=== PATIENT | female | born 1965 | race Caucasian/White ===

== ENCOUNTER 2021-11-30 13:26 | Emergency (ER) | payer MEDICAID ==
--- NOTE | 2021-11-30 13:29 | ERPHSYRPT ---
- History of Present Illness Time Seen by Provider: 11/30/21 13:28 Source: patient Exam Limitations: no limitations Physician History: This is a 56-year-old white female patient who states that she is a homeless person and is a diabetic and has nonalcoholic cirrhosis. She has been without her insulin for 4 weeks. In the last 2 weeks, the patient states that she has h ad weakness, generalized achiness and shakiness. Patient denies alcohol or illicit drug use/abuse. Patient is not homicidal or suicidal. Patient denies chest pain. She does not have shortness of breath and she has no complaints of abdominal pain. She has no primary care physician. Timing/Duration: week(s) (2) Severity: mild Associated Symptoms: weakness Allergies/Adverse Reactions: No Known Drug Allergies Allergy (Unverified 11/30/21 13:49) Travel Risk - International Travel Have you traveled outside of the country in past 3 weeks: No - Coronavirus Screening Are you exhibiting any of the following symptoms?: No Close contact with a COVID-19 positive Pt in past 14-21 Days: No - Review of Systems Constitutional: Weakness Eyes: No Symptoms Ears, Nose, & Throat: No Symptoms Respiratory: No Symptoms Cardiac: No Symptoms Abdominal/Gastrointestinal: No Symptoms Genitourinary Symptoms: No Symptoms Musculoskeletal: No Symptoms Skin: No Symptoms Neurological: No Symptoms Psychological: No Symptoms Endocrine: No Symptoms Hematologic/Lymphatic: No Symptoms Immunological/Allergic: No Symptoms All Other Systems: Reviewed and Negative - Past Surgical History Past Surgical History: Yes - Nursing Vital Signs Nursing Vital Signs: Initial Vital Signs Temperature 97.6 F 11/30/21 13:36 Pulse Rate 89 11/30/21 13:36 Blood Pressure 129/82 11/30/21 13:36 O2 Sat by Pulse Oximetry 98 11/30/21 13:36 Pain Scale Pain Intensity 0 - Physical Exam General Appearance: no apparent distress, alert, anxiety Eye Exam: PERRL/EOMI, eyes nml inspection Ears, Nose, Throat Exam: normal ENT inspection, dry mucous membranes Neck Exam: normal inspection, non-tender, supple, full range of motion Respiratory Exam: normal breath sounds, lungs clear, airway intact, No chest tenderness, No respiratory distress Cardiovascular Exam: regular rate/rhythm, normal heart sounds, normal peripheral pulses Gastrointestinal/Abdomen Exam: soft, normal bowel sounds, No tenderness Pelvic Exam: not done Rectal Exam: not done Back Exam: normal inspection, normal range of motion, No CVA tenderness, No vertebral tenderness Extremity Exam: normal inspection, normal range of motion, pelvis stable Neurologic Exam: alert, oriented x 3, cooperative, predatory animal hunter II-XII nml as tested, normal mood/affect, nml cerebellar function, nml station & gait, sensation nml Skin Exam: normal color, warm, dry Lymphatic Exam: No adenopathy SpO2 Interpretation: normal - Course Nursing assessment & vital signs reviewed: Yes EKG Interpreted by Me: RATE (82), Left [place] Deviation, NORMAL INTERVALS, NORMAL QRS, NORMAL ST-T, Other (No acute ischemic changes on today's EKG.) Ordered Tests: Active Orders 24 hr Category Date Time Status EKG-ER Only STAT Care 11/30/21 13:46 Active IV Insertion STAT Care 11/30/21 13:46 Active POCT Glucose Check STAT Care 11/30/21 13:53 Active Pulse Oximetry (ED) STAT Care 11/30/21 13:46 Active CBC W DIFF Stat Lab 11/30/21 13:48 Completed CMP Stat Lab 11/30/21 13:48 Completed CULTURE,URINE Stat Lab 11/30/21 13:52 Received D-DIMER QUANTITATIVE Stat Lab 11/30/21 13:48 Completed ETHYL ALCOHOL Stat Lab 11/30/21 13:52 Completed [place] Screen Stat Lab 11/30/21 13:52 Completed NT PRO BNP Stat Lab 11/30/21 13:48 Completed POCT GLUCOSE Stat Lab 11/30/21 13:49 Completed TROPONIN Q3H Lab 11/30/21 13:48 Completed TROPONIN Q3H Lab 11/30/21 17:00 Ordered TROPONIN Q3H Lab 11/30/21 20:00 Ordered TROPONIN Q3H Lab 11/30/21 23:00 Ordered TROPONIN Q3H Lab 12/01/21 02:00 Ordered UA W/RFX CULTURE Stat Lab 11/30/21 13:52 Completed Urine Triage Profile Stat Lab 11/30/21 13:52 Completed Medication Summary Generic Name Dose Route Start Last Admin Trade Name Freq PRN Reason Stop Dose Admin Sodium Chloride 1,000 mls @ 100 mls/hr 11/30/21 14:00 11/30/21 13:54 Sodium Chloride 0.9% 1000 Ml IV 12/30/21 13:59 100 mls/hr .Q10H SAL Administration Ceftriaxone Sodium/Dextrose 1 g in 50 mls @ 100 mls/hr 11/30/21 15:37 Rocephin 1 Gm-D5w 50 Ml Bag IV 11/30/21 16:06 STAT STA Lab/Rad Data: Laboratory Result Diagrams 11/30/21 13:48 11/30/21 13:48 Laboratory Results 11/30/21 11/30/21 11/30/21 Range/Units 13:52 13:52 13:52 WBC (4.0-10.5) x10^3/uL RBC (4.1-5.4) x10^6/uL Hgb (12.0-16.0) g/dL Hct (35-47) % MCV (78-100) fL MCH (26-32) pg MCHC (32-36) g/dL RDW (11.5-14.0) % Plt Count (150-450) x10^3/uL MPV (7.5-11.0) fL Gran % (36.0-66.0) % Immature Gran % (Auto) (0.00-0.4) % Nucleat RBC Rel Count (0.00-0.1) % Eos # (Auto) (0-0.5) x10^3/uL Immature Gran # (Auto) (0.00-0.03) x10^3u/L Absolute Lymphs (auto) (1.0-4.6) x10^3/uL Absolute Monos (auto) (0.0-1.3) x10^3/uL Absolute Nucleated RBC (0.00-0.01) x10^3u/L Lymphocytes % (24.0-44.0) % Monocytes % (0.0-12.0) % Eosinophils % (0.00-5.0) % Basophils % (0.0-0.4) % Absolute Granulocytes (1.4-6.9) x10^3/uL Basophils # (0-0.4) x10^3/uL D-Dimer (0.0-0.50) mg/L Sodium (137-145) mmol/L Potassium (3.5-5.1) mmol/L Chloride (98-107) mmol/L Carbon Dioxide (22-30) mmol/L Anion Gap (5-15) MEQ/L BUN (7-17) mg/dL Creatinine (0.52-1.04) mg/dL Estimated GFR ML/MIN Glucose (74-106) mg/dL POC Glucometer (74 to 106) mg/dL Calcium (8.4-10.2) mg/dL Total Bilirubin (0.2-1.3) mg/dL AST (14-36) U/L ALT (0-35) U/L Alkaline Phosphatase (38-126) U/L Troponin I (0.000-0.034) ng/mL NT-Pro-B Natriuret Pep (0-900) pg/mL Serum Total Protein (6.3-8.2) g/dL Albumin (3.5-5.0) g/dL Urinalys Dipstick Clnc MAIN LAB Urine Color YELLOW (YELLOW) Urine Appearance CLEAR (CLEAR) Urine pH 5.0 (5-6) Ur Specific [place] 1.025 (1.005-1.025) POC Urine Protein Conf NEGATIVE (Negative) Urine Ketones NEGATIVE (NEGATIVE) Urine Nitrite NEGATIVE (NEGATIVE) Urine Bilirubin NEGATIVE (NEGATIVE) Urine Urobilinogen 0.2 (0-1) mg/dL Urine Leukocytes TRACE (NEGATIVE) Urine WBC (Auto) 51-100 (0-5) /HPF Urine RBC (Auto) 3-5 (0-2) /HPF U Epithel Cells (Auto) NONE (FEW) /HPF Urine Bacteria (Auto) MODERATE (NEGATIVE) /HPF Urine RBC TRACE-INTACT (0-5) Mariusz/ul Urine Mucus (Auto) SLIGHT (NEGATIVE) /HPF Ur Culture Indicated? YES Urine Glucose 100 (NEGATIVE) mg/dL Urine Opiates Level (NEGATIVE) Ur Methadone (NEGATIVE) Urine Barbiturates (NEGATIVE) Ur Phencyclidine (PCP) (NEGATIVE) Urine Amphetamine (NEGATIVE) U Benzodiazepine Level (NEGATIVE) Urine Cocaine (NEGATIVE) Urine Marijuana (THC) (NEGATIVE) Ethyl Alcohol (0-10) mg/dL Monoscreen NEGATIVE (Negative) Influenza Type A Ag NEGATIVE (NEGATIVE) Influenza Type B Ag NEGATIVE (NEGATIVE) RSV (PCR) NEGATIVE (Negative) SARS-CoV-2 (PCR) NEGATIVE (NEGATIVE) 11/30/21 11/30/21 11/30/21 Range/Units 13:52 13:52 13:49 WBC (4.0-10.5) x10^3/uL RBC (4.1-5.4) x10^6/uL Hgb (12.0-16.0) g/dL Hct (35-47) % MCV (78-100) fL MCH (26-32) pg MCHC (32-36) g/dL RDW (11.5-14.0) % Plt Count (150-450) x10^3/uL MPV (7.5-11.0) fL Gran % (36.0-66.0) % Immature Gran % (Auto) (0.00-0.4) % Nucleat RBC Rel Count (0.00-0.1) % Eos # (Auto) (0-0.5) x10^3/uL Immature Gran # (Auto) (0.00-0.03) x10^3u/L Absolute Lymphs (auto) (1.0-4.6) x10^3/uL Absolute Monos (auto) (0.0-1.3) x10^3/uL Absolute Nucleated RBC (0.00-0.01) x10^3u/L Lymphocytes % (24.0-44.0) % Monocytes % (0.0-12.0) % Eosinophils % (0.00-5.0) % Basophils % (0.0-0.4) % Absolute Granulocytes (1.4-6.9) x10^3/uL Basophils # (0-0.4) x10^3/uL D-Dimer (0.0-0.50) mg/L Sodium (137-145) mmol/L Potassium (3.5-5.1) mmol/L Chloride (98-107) mmol/L Carbon Dioxide (22-30) mmol/L Anion Gap (5-15) MEQ/L BUN (7-17) mg/dL Creatinine (0.52-1.04) mg/dL Estimated GFR ML/MIN Glucose (74-106) mg/dL POC Glucometer 226 H (74 to 106) mg/dL Calcium (8.4-10.2) mg/dL Total Bilirubin (0.2-1.3) mg/dL AST (14-36) U/L ALT (0-35) U/L Alkaline Phosphatase (38-126) U/L Troponin I (0.000-0.034) ng/mL NT-Pro-B Natriuret Pep (0-900) pg/mL Serum Total Protein (6.3-8.2) g/dL Albumin (3.5-5.0) g/dL Urinalys Dipstick Clnc Urine Color (YELLOW) Urine Appearance (CLEAR) Urine pH (5-6) Ur Specific [place] (1.005-1.025) POC Urine Protein Conf (Negative) Urine Ketones (NEGATIVE) Urine Nitrite (NEGATIVE) Urine Bilirubin (NEGATIVE) Urine Urobilinogen (0-1) mg/dL Urine Leukocytes (NEGATIVE) Urine WBC (Auto) (0-5) /HPF Urine RBC (Auto) (0-2) /HPF U Epithel Cells (Auto) (FEW) /HPF Urine Bacteria (Auto) (NEGATIVE) /HPF Urine RBC (0-5) Mariusz/ul Urine Mucus (Auto) (NEGATIVE) /HPF Ur Culture Indicated? Urine Glucose (NEGATIVE) mg/dL Urine Opiates Level NEGATIVE (NEGATIVE) Ur Methadone NEGATIVE (NEGATIVE) Urine Barbiturates NEGATIVE (NEGATIVE) Ur Phencyclidine (PCP) NEGATIVE (NEGATIVE) Urine Amphetamine NEGATIVE (NEGATIVE) U Benzodiazepine Level NEGATIVE (NEGATIVE) Urine Cocaine NEGATIVE (NEGATIVE) Urine Marijuana (THC) POSITIVE (NEGATIVE) Ethyl Alcohol < 10 (0-10) mg/dL Monoscreen (Negative) Influenza Type A Ag (NEGATIVE) Influenza Type B Ag (NEGATIVE) RSV (PCR) (Negative) SARS-CoV-2 (PCR) (NEGATIVE) 11/30/21 11/30/21 11/30/21 Range/Units 13:48 13:48 13:48 WBC (4.0-10.5) x10^3/uL RBC (4.1-5.4) x10^6/uL Hgb (12.0-16.0) g/dL Hct (35-47) % MCV (78-100) fL MCH (26-32) pg MCHC (32-36) g/dL RDW (11.5-14.0) % Plt Count (150-450) x10^3/uL MPV (7.5-11.0) fL Gran % (36.0-66.0) % Immature Gran % (Auto) (0.00-0.4) % Nucleat RBC Rel Count (0.00-0.1) % Eos # (Auto) (0-0.5) x10^3/uL Immature Gran # (Auto) (0.00-0.03) x10^3u/L Absolute Lymphs (auto) (1.0-4.6) x10^3/uL Absolute Monos (auto) (0.0-1.3) x10^3/uL Absolute Nucleated RBC (0.00-0.01) x10^3u/L Lymphocytes % (24.0-44.0) % Monocytes % (0.0-12.0) % Eosinophils % (0.00-5.0) % Basophils % (0.0-0.4) % Absolute Granulocytes (1.4-6.9) x10^3/uL Basophils # (0-0.4) x10^3/uL D-Dimer 0.34 (0.0-0.50) mg/L Sodium 136 L (137-145) mmol/L Potassium 3.9 (3.5-5.1) mmol/L Chloride 101 (98-107) mmol/L Carbon Dioxide 28 (22-30) mmol/L Anion Gap 11.7 (5-15) MEQ/L BUN 10 (7-17) mg/dL Creatinine 0.84 (0.52-1.04) mg/dL Estimated GFR > 60.0 ML/MIN Glucose 226 H (74-106) mg/dL POC Glucometer (74 to 106) mg/dL Calcium 9.3 (8.4-10.2) mg/dL Total Bilirubin 0.50 (0.2-1.3) mg/dL AST 25 (14-36) U/L ALT 23 (0-35) U/L Alkaline Phosphatase 90 (38-126) U/L Troponin I < 0.012 (0.000-0.034) ng/mL NT-Pro-B Natriuret Pep 42.6 (0-900) pg/mL Serum Total Protein 7.6 (6.3-8.2) g/dL Albumin 4.1 (3.5-5.0) g/dL Urinalys Dipstick Clnc Urine Color (YELLOW) Urine Appearance (CLEAR) Urine pH (5-6) Ur Specific [place] (1.005-1.025) POC Urine Protein Conf (Negative) Urine Ketones (NEGATIVE) Urine Nitrite (NEGATIVE) Urine Bilirubin (NEGATIVE) Urine Urobilinogen (0-1) mg/dL Urine Leukocytes (NEGATIVE) Urine WBC (Auto) (0-5) /HPF Urine RBC (Auto) (0-2) /HPF U Epithel Cells (Auto) (FEW) /HPF Urine Bacteria (Auto) (NEGATIVE) /HPF Urine RBC (0-5) Mariusz/ul Urine Mucus (Auto) (NEGATIVE) /HPF Ur Culture Indicated? Urine Glucose (NEGATIVE) mg/dL Urine Opiates Level (NEGATIVE) Ur Methadone (NEGATIVE) Urine Barbiturates (NEGATIVE) Ur Phencyclidine (PCP) (NEGATIVE) Urine Amphetamine (NEGATIVE) U Benzodiazepine Level (NEGATIVE) Urine Cocaine (NEGATIVE) Urine Marijuana (THC) (NEGATIVE) Ethyl Alcohol (0-10) mg/dL Monoscreen (Negative) Influenza Type A Ag (NEGATIVE) Influenza Type B Ag (NEGATIVE) RSV (PCR) (Negative) SARS-CoV-2 (PCR) (NEGATIVE) 11/30/21 Range/Units 13:48 WBC 8.4 (4.0-10.5) x10^3/uL RBC 4.42 (4.1-5.4) x10^6/uL Hgb 12.5 (12.0-16.0) g/dL Hct 38.9 (35-47) % MCV 88.0 (78-100) fL MCH 28.3 (26-32) pg MCHC 32.1 (32-36) g/dL RDW 12.9 (11.5-14.0) % Plt Count 266 (150-450) x10^3/uL MPV 11.8 H (7.5-11.0) fL Gran % 66.2 H (36.0-66.0) % Immature Gran % (Auto) 0.5 H (0.00-0.4) % Nucleat RBC Rel Count 0.0 (0.00-0.1) % Eos # (Auto) 0.18 (0-0.5) x10^3/uL Immature Gran # (Auto) 0.04 H (0.00-0.03) x10^3u/L Absolute Lymphs (auto) 2.14 (1.0-4.6) x10^3/uL Absolute Monos (auto) 0.42 (0.0-1.3) x10^3/uL Absolute Nucleated RBC 0.00 (0.00-0.01) x10^3u/L Lymphocytes % 25.4 (24.0-44.0) % Monocytes % 5.0 (0.0-12.0) % Eosinophils % 2.1 (0.00-5.0) % Basophils % 0.8 (0.0-0.4) % Absolute Granulocytes 5.58 (1.4-6.9) x10^3/uL Basophils # 0.07 (0-0.4) x10^3/uL D-Dimer (0.0-0.50) mg/L Sodium (137-145) mmol/L Potassium (3.5-5.1) mmol/L Chloride (98-107) mmol/L Carbon Dioxide (22-30) mmol/L Anion Gap (5-15) MEQ/L BUN (7-17) mg/dL Creatinine (0.52-1.04) mg/dL Estimated GFR ML/MIN Glucose (74-106) mg/dL POC Glucometer (74 to 106) mg/dL Calcium (8.4-10.2) mg/dL Total Bilirubin (0.2-1.3) mg/dL AST (14-36) U/L ALT (0-35) U/L Alkaline Phosphatase (38-126) U/L Troponin I (0.000-0.034) ng/mL NT-Pro-B Natriuret Pep (0-900) pg/mL Serum Total Protein (6.3-8.2) g/dL Albumin (3.5-5.0) g/dL Urinalys Dipstick Clnc Urine Color (YELLOW) Urine Appearance (CLEAR) Urine pH (5-6) Ur Specific [place] (1.005-1.025) POC Urine Protein Conf (Negative) Urine Ketones (NEGATIVE) Urine Nitrite (NEGATIVE) Urine Bilirubin (NEGATIVE) Urine Urobilinogen (0-1) mg/dL Urine Leukocytes (NEGATIVE) Urine WBC (Auto) (0-5) /HPF Urine RBC (Auto) (0-2) /HPF U Epithel Cells (Auto) (FEW) /HPF Urine Bacteria (Auto) (NEGATIVE) /HPF Urine RBC (0-5) Mariusz/ul Urine Mucus (Auto) (NEGATIVE) /HPF Ur Culture Indicated? Urine Glucose (NEGATIVE) mg/dL Urine Opiates Level (NEGATIVE) Ur Methadone (NEGATIVE) Urine Barbiturates (NEGATIVE) Ur Phencyclidine (PCP) (NEGATIVE) Urine Amphetamine (NEGATIVE) U Benzodiazepine Level (NEGATIVE) Urine Cocaine (NEGATIVE) Urine Marijuana (THC) (NEGATIVE) Ethyl Alcohol (0-10) mg/dL Monoscreen (Negative) Influenza Type A Ag (NEGATIVE) Influenza Type B Ag (NEGATIVE) RSV (PCR) (Negative) SARS-CoV-2 (PCR) (NEGATIVE) - Progress Progress: improved Counseled pt/family regarding: lab results, diagnosis, need for follow-up - Departure Departure Disposition: Home Clinical Impression: UTI (urinary tract infection) Condition: Stable Critical Care Time: No Additional Instructions: Drink plenty of clear liquids. Take your antibiotics as prescribed. Follow-up with a primary care physician for further evaluation and management of your medical conditions. Prescriptions: Ciprofloxacin [Cipro 500 MG] 500 mg PO BID #14 tablet
[2021-11-30] MEDS ORDERED: Sodium Chloride 0.9% 1000 ML 1,000 ML ONE (13:53)
[2021-11-30] MEDS ORDERED: Sodium Chloride 0.9% 1000 ML 1,000 ML IV SCH (14:00)
[2021-11-30 14:12] LABS: Bacteria MODERATE /HPF (NEGATIVE); Mucus SLIGHT /HPF (NEGATIVE); WBC 51-100 /HPF (0-5)
[2021-11-30 14:18] LABS: Appearance CLEAR (CLEAR); Bilirubin NEGATIVE (NEGATIVE); Glucose 100 mg/dL (NEGATIVE); Ketones NEGATIVE (NEGATIVE); Nitrite NEGATIVE (NEGATIVE); Protein,Urine Dip NEGATIVE (Negative); RBC TRACE-INTACT Ery/ul (0-5); Specific Gravity 1.025 (1.005-1.025); Urobilinogen 0.2 mg/dL (0-1)
[2021-11-30 14:19] LABS: Dipstick done @ ? MAIN LAB; Urine Cultured Indicated? YES
[2021-11-30 14:26] LABS: Absolute Neutrophil Ct (ANC) 5.58 x10^3/uL (1.4-6.9); Basophil (Absolute #) 0.07 x10^3/uL (0-0.4); Eosinophil % 2.1 % (0.00-5.0); Eosinophil (Absolute #) 0.18 x10^3/uL (0-0.5); Hematocrit 38.9 % (35-47); Hemoglobin 12.5 g/dL (12.0-16.0); Lymphocyte (Absolute #) 2.14 x10^3/uL (1.0-4.6); Lymphocytes % 25.4 % (24.0-44.0); Mean Corpuscular Hemoglobin 28.3 pg (26-32); Mean Corpuscular Hgb Concent. 32.1 g/dL (32-36); Mean Platelet Volume 11.8 fL (7.5-11.0); Monocyte (Absolute #) 0.42 x10^3/uL (0.0-1.3); Neutrophil % 66.2 % (36.0-66.0); Platelet Count 266 x10^3/uL (150-450); Red Blood Count 4.42 x10^6/uL (4.1-5.4); Red Cell Distribution Width 12.9 % (11.5-14.0); White Blood Count 8.4 x10^3/uL (4.0-10.5)
[2021-11-30 14:28] LABS: Amphetamine,Urine NEGATIVE (NEGATIVE); Barbiturate,Urine NEGATIVE (NEGATIVE); Benzodiazepine,Urine NEGATIVE (NEGATIVE); Cocaine,Urine NEGATIVE (NEGATIVE); Methadone,Urine NEGATIVE (NEGATIVE); Opiate,Urine NEGATIVE (NEGATIVE); PCP,Urine NEGATIVE (NEGATIVE); THC,Urine POSITIVE (NEGATIVE)
[2021-11-30 14:37] LABS: ALBUMIN 4.1 g/dL (3.5-5.0); ALKALINE PHOSPHATASE 90 U/L (38-126); ANION GAP 11.7 MEQ/L (5-15); BLOOD UREA NITROGEN 10 mg/dL (7-17); CHLORIDE 101 mmol/L (98-107); Calcium 9.3 mg/dL (8.4-10.2); Carbon Dioxide 28 mmol/L (22-30); Creatinine 1 0.84 mg/dL (0.52-1.04); EST GLOMERULAR FILTRATION RATE > 60.0 ML/MIN; Glucose 226 mg/dL (74-106); NT PRO BNP 42.6 pg/mL (0-900); Potassium 3.9 mmol/L (3.5-5.1); SGOT/AST 25 U/L (14-36); SGPT/ALT 23 U/L (0-35); SODIUM 136 mmol/L (137-145); Total Protein 7.6 g/dL (6.3-8.2)
[2021-11-30 14:55] LABS: INFLUENZA A NEGATIVE (NEGATIVE); INFLUENZA B NEGATIVE (NEGATIVE); RESPIRATORY SYNCTIAL VIRUS NEGATIVE (Negative); SARS-CoV-2 Xpert Express NEGATIVE (NEGATIVE)
[2021-11-30] MEDS ORDERED: ROCEPHIN 1 Gm-D5w 50 ml Bag** 1 G/50 ML IVPB IV STA (15:37)
[2021-11-30] MEDS ORDERED: ROCEPHIN 1 Gm-D5w 50 ml Bag** 1 G/50 ML IVPB IV ONE (15:51)
[2021-11-30 16:01] VITALS: BP 140/86; PULSE 80; O2SAT 96
[2021-12-02 06:13] LABS: HBsAg Screen Negative (Negative); HCV Ab 0.1 s/co ratio (0.0-0.9); Hep A Ab, IgM Negative (Negative); Hep B Core Ab, IgM Negative (Negative)
== END 2021-11-30 16:06 | disposition home or self-care (01) ==
LOC: ED 13:26
DX: N39.0 Urinary tract infection, site not specified (principal); R53.1 Weakness; M79.10 Myalgia, unspecified site; E11.9 Type 2 diabetes mellitus without complications; Z79.4 Long term (current) use of insulin; Z59.00 Homelessness unspecified
CPT/HCPCS: 0241U; 36000; 36415; 80053; 80074; 80307; 81015; 82947; 83880; 84484; 85025; 85379; 86308; 87077; 87086; 87186; 93005; 94760; 96360; 96365; 99284; J0696; G0480

== ENCOUNTER 2021-12-24 17:21 | Emergency (ER) | payer MEDICAID, OTHER ==
[2021-12-24] MEDS ORDERED: Reglan 10 MG/2 ML IV ONE (17:56)
[2021-12-24] MEDS ORDERED: BENADRYL 50 MG/ML IV ONE (17:56)
[2021-12-24] MEDS ORDERED: TORAdol 30 mg Injection IV ONE (17:56)
[2021-12-24] MEDS ORDERED: Sodium Chloride 0.9% 500 ML 500 ML IV ONE ×2 (17:57→18:07)
[2021-12-24] MEDS ORDERED: TORAdol 30 mg Injection ONE (18:06)
[2021-12-24] MEDS ORDERED: Reglan 10 MG/2 ML ONE (18:07)
[2021-12-24] MEDS ORDERED: BENADRYL 50 MG/ML ONE (18:07)
[2021-12-24 19:11] VITALS: O2SAT 98
[2021-12-24] MEDS ORDERED: MORPHINE SULFATE 4 MG INJ IV ONE (19:24)
[2021-12-24] MEDS ORDERED: MORPHINE SULFATE 4 MG INJ ONE (19:25)
--- NOTE | 2021-12-24 19:40 | ERPHSYRPT ---
- History of Present Illness Time Seen by Provider: 12/24/21 17:24 Source: patient Exam Limitations: no limitations Patient Subjective Stated Complaint: MADDOX and sinus pain Triage Nursing Assessment: pt to ED by EMS c/o MADDOX and sinus pain since yester day. pt reports frequent headaches that typically last a day or so and alleviate on their own. pt reports she is currently homeless and is not taking any medications besides her insulin. rates 8/10 pain now. pt is babbling and inconsistant with conversation but is A&Ox4. Physician History: 56-year-old female with history of diabetes mellitus, hypertension, hyperlipidemia, migraine taking only insulin at home with a blood sugar of 150 by EMS presented in the ER with chief complaint of headache since yesterday. Patient reports moderate to severe headache all over without any significant aggravating or relieving factors. Report associated nausea without vomiting. Normal visual disturbance, difficulty speech are photophobia. No numbness tingling or focal weakness. Reports having similar headaches in the past and does not think this is the worst headache of her life. Patient is concerned that she might have COVID. No chest pain palpitations or shortness of breath. No abdominal pain/diarrhea. Timing/Duration: yesterday, constant, gradual onset, worse Quality: sharpness Head Pain Location: global Severity of Pain-Max: severe Severity of Pain-Current: severe Recent Head Trauma: no recent headache/trauma, frequent headaches Associated Symptoms: No confusion, No dizziness, No fatigue, No facial pain, No fever/chills, No light-headedness, No loss of consciousness, No nasal conge stion, No nasal drainage, No neck pain, No numbness in legs/feet, No sweating, No seizures, No sinus infection, No sensitive to light, No speech problems, No trouble walking, No vision changes, No visual disturbance Previous symptoms: same symptoms as today Allergies/Adverse Reactions: No Known Drug Allergies Allergy (Verified 12/24/21 17:29) Home Medications: Insuln Asp Prt/Insulin Aspart* [NovoLOG 70/30 Mix] 1 unit SQ UD 12/24/21 [History] Hx Tetanus, Diphtheria Vaccination/Date Given: No Hx Influenza Vaccination/Date Given: Yes Hx Pneumococcal Vaccination/Date Given: No Immunizations Up to Date: No Travel Risk - International Travel Have you traveled outside of the country in past 3 weeks: No - Coronavirus Screening Are you exhibiting any of the following symptoms?: Yes Symptoms: Headaches/Body Aches/Fatigue Close contact with a COVID-19 positive Pt in past 14-21 Days: No - Vaccine Status Have you recieved a Covid-19 vaccination: No - Review of Systems Constitutional: No Symptoms Eyes: No Symptoms Ears, Nose, & Throat: No Symptoms Respiratory: No Symptoms Cardiac: No Symptoms Abdominal/Gastrointestinal: Nausea Genitourinary Symptoms: No Symptoms Musculoskeletal: No Symptoms Skin: No Symptoms Neurological: Headache Psychological: Anxiety Endocrine: No Symptoms Hematologic/Lymphatic: No Symptoms Immunological/Allergic: No Symptoms - Past Medical History Pertinent Past Medical History: Yes Cardiac History: High Cholesterol Endocrine Medical History: Diabetes Type II Musculoskeletal History: Arthritis, Other GI Medical History: Cirrhosis, Pancreatitis Other Medical History: trigger finger, carpal tunnel - Past Surgical History Past Surgical History: Yes Genitourinary: Other Female Surgical History: Section, Other Other Surgical History: achilles tendon, kidney stone with stent (now removed), - Social History Smoking Status: Former smoker Exposure to second hand smoke: Yes Drug Use: marijuana Patient Lives Alone: No - Nursing Vital Signs Nursing Vital Signs: Initial Vital Signs Temperature 97.9 F 12/24/21 17:32 Pulse Rate 96 H 12/24/21 17:32 Respiratory Rate 20 12/24/21 17:32 Blood Pressure 128/88 12/24/21 17:32 O2 Sat by Pulse Oximetry 98 12/24/21 17:32 Pain Scale Pain Intensity 4 - Physical Exam General Appearance: no apparent distress, alert, anxiety Eye Exam: PERRL/EOMI, eyes nml inspection Ears, Nose, Throat Exam: normal ENT inspection, TMs normal, pharynx normal, moist mucous membranes Neck Exam: normal inspection, non-tender, supple, full range of motion Respiratory Exam: normal breath sounds, lungs clear Cardiovascular Exam: regular rate/rhythm, normal heart sounds Gastrointestinal/Abdominal Exam: soft, normal bowel sounds, No tenderness Extremity Exam: normal inspection, normal range of motion Mental Status Exam: alert, oriented x 3, 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 Exam: normal hearing, normal speech, PERRL, No facial asymmetry Coordination/Gait Exam: normal finger to nose, normal cerebellar function Motor/Sensory Exam: no motor deficit, no sensory deficit, no pronator drift, negative Babinski's sign DTR Exam: bicep (R): 2+, bicep (L): 2+, knee (R): 2+, knee (L): 2+ Skin Exam: normal color SpO2 Interpretation: normal SpO2: 98 O2 Delivery: Room Air Ordered Tests: Active Orders 24 hr Category Date Time Status IV Insertion STAT Care 12/24/21 17:56 Active Medication Summary Discontinued Medications Generic Name Dose Route Start Last Admin Trade Name Truong PRN Reason Stop Dose Admin Diphenhydramine HCl 50 mg 12/24/21 17:56 12/24/21 18:10 Diphenhydramine Hcl 50 Mg/Ml Vial IV 12/24/21 17:57 50 mg STAT ONE Administration Diphenhydramine HCl Confirm 12/24/21 18:07 Diphenhydramine Hcl 50 Mg/Ml Vial Administered 12/24/21 18:08 Dose 50 mg .ROUTE .STK-MED ONE Sodium Chloride 500 mls @ 500 mls/hr 12/24/21 17:57 12/24/21 19:11 Sodium Chloride 0.9% 500 Ml IV 12/24/21 18:56 Infused .Q1H ONE Infusion Sodium Chloride Confirm 12/24/21 18:07 Sodium Chloride 0.9% 500 Ml Administered 12/24/21 18:08 Dose 500 mls @ ud IV .STK-MED ONE Ketorolac Tromethamine 30 mg 12/24/21 17:56 12/24/21 18:10 Ketorolac Tromethamine 30 Mg/Ml Inj IV 12/24/21 17:57 30 mg STAT ONE Administration Ketorolac Tromethamine Confirm 12/24/21 18:06 Ketorolac Tromethamine 30 Mg/Ml Inj Administered 12/24/21 18:07 Dose 30 mg .ROUTE .STK-MED ONE Metoclopramide HCl 10 mg 12/24/21 17:56 12/24/21 18:10 Metoclopramide Hcl 10 Mg/2 Ml Vial IV 12/24/21 17:57 10 mg STAT ONE Administration Metoclopramide HCl Confirm 12/24/21 18:07 Metoclopramide Hcl 10 Mg/2 Ml Vial Administered 12/24/21 18:08 Dose 10 mg .ROUTE .STK-MED ONE Morphine Sulfate 4 mg 12/24/21 19:24 12/24/21 19:26 Morphine Sulfate 4 Mg/Ml Injection IV 12/24/21 19:25 4 mg STAT ONE Administration Morphine Sulfate Confirm 12/24/21 19:25 Morphine Sulfate 4 Mg/Ml Injection Administered 12/24/21 19:26 Dose 4 mg .ROUTE .STK-MED ONE Lab/Rad Data: Laboratory Results 12/24/21 Range/Units 19:00 Influenza Type A Ag NEGATIVE (NEGATIVE) Influenza Type B Ag NEGATIVE (NEGATIVE) RSV (PCR) NEGATIVE (Negative) SARS-CoV-2 (PCR) POSITIVE A (NEGATIVE) - Progress Progress: re-examined Air Movement: good Progress Note: 12/24/21 19:58 56-year-old is evaluated for headache. She has a nonfocal neuro exam. She is given patient feeling better but headache is not completely resolved, given a dose of morphine and headache is improved. Patient is a positive COVID-19, does not have coughing or difficulty breathing, minimal body aches and mainly is the headache. Headache is similar to previous and is not the worst headache of her life with normal neuro exam, do not think she needs imaging or any work-up. I have offered her Paxilovid, went over risk and benefits, patient wants to hold off on antiviral for now and we will see how she does in the next couple of days and if has any worsening will return to ER or follow-up with primary care. She is not in any distress and I agree with her. Recommended taking ibuprofen as needed for headache and outpatient follow-up. Discussed signs symptoms of worsening needing return to ER which she seems understanding. 12/24/21 20:31 Patient reported that she is soon be running out of her insulin and wanted to prescription sent to the [facility] Counseled pt/family regarding: diagnosis, need for follow-up - Departure Departure Disposition: Home Clinical Impression: COVID-19 virus detected, Viral syndrome Migraine Qualifiers: Migraine type: unspecified Status migrainosus presence: without status migrainosus Intractability: not intractable Qualified Code(s): G43.909 - Migraine, unspecified, not intractable, without status migrainosus Condition: Stable Critical Care Time: No Referrals: MARY TRONCOSO [Primary Care Provider] - Follow up/PCP as directed (1-2 days for reevaluation) Instructions: Headache, Adult (DC), COVID-19 (DC) Additional Instructions: Follow contact/droplet precautions. Take ibuprofen as needed for headache. Follow-up with primary care for reevaluation. Return to ER for worsening headache, numbness tingling focal weakness, visual disturbance, difficulty movements of neck or if develop fever chills etc. Prescriptions: Ibuprofen 600 mg PO Q6HPRN PRN 10 Days #20 tablet PRN Reason: Pain Insulin Lispro [Humalog Kwikpen U-100] See Rx Instructions .ROUTE .COMPLEX 10 Days #200 units
[2021-12-24 19:44] LABS: INFLUENZA A NEGATIVE (NEGATIVE); INFLUENZA B NEGATIVE (NEGATIVE); RESPIRATORY SYNCTIAL VIRUS NEGATIVE (Negative)
[2021-12-24 19:55] LABS: SARS-CoV-2 Xpert Express POSITIVE (NEGATIVE)
[2021-12-24 20:51] VITALS: BP 133/85; PULSE 83
== END 2021-12-24 20:50 | disposition home or self-care (01) ==
LOC: ED 17:21
DX: U07.1 COVID-19 (principal); G43.909 Migraine, unspecified, not intractable, without status migrainosus; R11.0 Nausea; E11.9 Type 2 diabetes mellitus without complications; I10 Essential (primary) hypertension; E78.5 Hyperlipidemia, unspecified; Z79.4 Long term (current) use of insulin; Z28.310 Unvaccinated for COVID-19
CPT/HCPCS: 0241U; 36000; 96360; 96374; 96375; 99284; J1200; J1885; J2270

== ENCOUNTER 2022-03-03 14:09 | Emergency (ER) | payer OTHER ==
--- NOTE | 2022-03-03 14:20 | ERPHSYRPT ---
- History of Present Illness Time Seen by Provider: 03/03/22 14:20 Source: patient Exam Limitations: no limitations Physician History: This is a diabetic 56-year-old white female patient of Dr. Marquez who states that she has had some right sided lower back pain intermittently for the last 2 weeks. She thinks it is been worse in the last 2 days. She did not fall or suffer any traumatic injury. The pain does shoot down to her buttock. Timing/Duration: week(s) (2), intermittent, worse Quality: radiating, sharp Back Pain Location: paraspinous muscles Back Pain Radiation: buttocks (Right side right side) Severity of Pain-Max: mild (To moderate) Severity of Pain-Current: mild (To moderate) Modifying Factors: Improves With: movement Associated Symptoms: lower back pain, muscle spasms (Right lower lumbar region), No urinary incontinence, No loss of bowel control, No constipation, No numbness in legs/feet, No tingling in legs/feet (Right side) Previous symptoms: same symptoms as today, no recent treatment Allergies/Adverse Reactions: No Known Drug Allergies Allergy (Verified 03/03/22 14:22) Home Medications: Insuln Asp Prt/Insulin Aspart* [NovoLOG 70/30 Mix] 1 unit SQ UD 12/24/21 [History] Hx Tetanus, Diphtheria Vaccination/Date Given: No Hx Influenza Vaccination/Date Given: Yes Hx Pneumococcal Vaccination/Date Given: No Travel Risk - International Travel Have you traveled outside of the country in past 3 weeks: No - Coronavirus Screening Are you exhibiting any of the following symptoms?: No Close contact with a COVID-19 positive Pt in past 14-21 Days: No - Vaccine Status Have you recieved a Covid-19 vaccination: No - Review of Systems Constitutional: No Symptoms Eyes: No Symptoms Ears, Nose, & Throat: No Symptoms Respiratory: No Symptoms Cardiac: No Symptoms Abdominal/Gastrointestinal: Constipation Genitourinary Symptoms: No Symptoms Musculoskeletal: Back Pain (Right lower lumbar region. No vertebral pain) Skin: No Symptoms Neurological: No Symptoms Psychological: No Symptoms Endocrine: No Symptoms Hematologic/Lymphatic: No Symptoms Immunological/Allergic: No Symptoms All Other Systems: Reviewed and Negative - Past Medical History Pertinent Past Medical History: Yes Cardiac History: High Cholesterol Endocrine Medical History: Diabetes Type II Musculoskeletal History: Arthritis, Other GI Medical History: Cirrhosis, Pancreatitis Other Medical History: trigger finger, carpal tunnel - Past Surgical History Past Surgical History: Yes Genitourinary: Other Female Surgical History: Section, Other Other Surgical History: achilles tendon, kidney stone with stent (now removed), - Social History Smoking Status: Former smoker Exposure to second hand smoke: Yes Drug Use: marijuana Patient Lives Alone: No - Nursing Vital Signs Nursing Vital Signs: Initial Vital Signs Temperature 97.7 F 03/03/22 14:25 Pulse Rate 76 03/03/22 14:25 Respiratory Rate 18 03/03/22 14:25 Blood Pressure 154/83 03/03/22 14:25 O2 Sat by Pulse Oximetry 97 03/03/22 14:25 Pain Scale Pain Intensity [Lower back 10 pain] Pain Intensity 10 - Physical Exam General Appearance: no apparent distress, alert, anxiety, obese Eye Exam: PERRL/EOMI, eyes nml inspection Ears, Nose, Throat Exam: normal ENT inspection, moist mucous membranes Neck Exam: normal inspection, non-tender, supple, full range of motion Respiratory Exam: airway intact, No chest tenderness, No respiratory distress Gastrointestinal Exam: soft, normal bowel sounds, No tenderness Pelvic Exam: not done Rectal Exam: not done Back Exam: normal inspection, normal range of motion, muscle spasm, No CVA tenderness, No vertebral tenderness Extremity Exam: normal inspection (Right lower lumbar paraspinous muscle uche on), normal range of motion, pelvis stable Neurologic Exam: alert, oriented x 3, cooperative, herb doctor II-XII nml as tested, normal mood/affect, nml cerebellar function, nml station & gait, sensation nml Skin Exam: normal color, warm, dry Lymphatic Exam: No adenopathy SpO2 Interpretation: normal O2 Delivery: Room Air - Course Nursing assessment & vital signs reviewed: Yes Ordered Tests: Active Orders 24 hr Category Date Time Status UA W/RFX CULTURE Stat Lab 03/03/22 15:00 Completed Medication Summary Discontinued Medications Generic Name Dose Route Start Last Admin Trade Name Freq PRN Reason Stop Dose Admin Ketorolac Tromethamine 60 mg 03/03/22 15:28 03/03/22 15:34 Ketorolac Tromethamine 30 Mg/Ml Inj IM 03/03/22 15:29 60 mg STAT ONE Administration Ketorolac Tromethamine Confirm 03/03/22 15:33 Ketorolac Tromethamine 30 Mg/Ml Inj Administered 03/03/22 15:34 Dose 60 mg .ROUTE .STK-MED ONE Orphenadrine Citrate 60 mg 03/03/22 15:29 03/03/22 15:35 Orphenadrine Citrate 60 Mg/2 Ml Vial IM 03/03/22 15:30 60 mg STAT ONE Administration Orphenadrine Citrate Confirm 03/03/22 15:33 Orphenadrine Citrate 60 Mg/2 Ml Vial Administered 03/03/22 15:34 Dose 60 mg .ROUTE .STK-MED ONE Lab/Rad Data: Laboratory Results 03/03/22 Range/Units 15:00 Urinalys Dipstick Clnc MAIN LAB Urine Color YELLOW (YELLOW) Urine Appearance CLEAR (CLEAR) Urine pH 6.0 (5-6) Ur Specific [place] 1.025 (1.005-1.025) POC Urine Protein Conf NEGATIVE (Negative) Urine Ketones NEGATIVE (NEGATIVE) Urine Nitrite NEGATIVE (NEGATIVE) Urine Bilirubin NEGATIVE (NEGATIVE) Urine Urobilinogen 0.2 (0-1) mg/dL Urine Leukocytes NEGATIVE (NEGATIVE) Urine WBC (Auto) NONE (0-5) /HPF Urine RBC (Auto) NONE (0-2) /HPF U Epithel Cells (Auto) NONE (FEW) /HPF Urine Bacteria (Auto) NONE (NEGATIVE) /HPF Urine RBC NEGATIVE (0-5) Mariusz/ul Ur Culture Indicated? NO Urine Glucose 500 (NEGATIVE) mg/dL - Progress Progress: improved, pain not gone completely Counseled pt/family regarding: diagnosis, need for follow-up - Departure Departure Disposition: Home Clinical Impression: Sciatica Condition: Stable Critical Care Time: No Referrals: SUZIE MARQUEZ DO [Primary Care Provider] - Follow up/PCP as directed Additional Instructions: Take your medication as prescribed. Follow-up with your primary care physician for further evaluation management. Do not take ibuprofen while you are taking the naproxen medication Prescriptions: Naproxen 500 mg [Naprosyn 500 MG] 500 mg PO BID #10 tablet Orphenadrine Citrate 100 mg [Norflex 100 MG Tablet] 100 mg PO BID #10 tab
[2022-03-03 15:06] LABS: Appearance CLEAR (CLEAR); Bilirubin NEGATIVE (NEGATIVE); Dipstick done @ ? MAIN LAB; Glucose 500 mg/dL (NEGATIVE); Ketones NEGATIVE (NEGATIVE); Nitrite NEGATIVE (NEGATIVE); Protein,Urine Dip NEGATIVE (Negative); RBC NEGATIVE Ery/ul (0-5); Specific Gravity 1.025 (1.005-1.025); Urobilinogen 0.2 mg/dL (0-1)
[2022-03-03 15:08] LABS: Urine Cultured Indicated? NO
[2022-03-03] MEDS ORDERED: TORAdol 30 mg Injection IM ONE (15:28)
[2022-03-03] MEDS ORDERED: Norflex 60 MG/2 ML IM ONE (15:29)
[2022-03-03] MEDS ORDERED: Norflex 60 MG/2 ML ONE (15:33)
[2022-03-03] MEDS ORDERED: TORAdol 30 mg Injection ONE (15:33)
[2022-03-03 16:15] VITALS: BP 144/75; PULSE 70; O2SAT 98
== END 2022-03-03 16:15 | disposition home or self-care (01) ==
LOC: ED 14:09
DX: M54.41 Lumbago with sciatica, right side (principal); E78.5 Hyperlipidemia, unspecified; E11.9 Type 2 diabetes mellitus without complications; Z79.4 Long term (current) use of insulin; Z28.310 Unvaccinated for COVID-19
CPT/HCPCS: 81015; 96372; 99283; J1885; J2360

== ENCOUNTER 2022-04-26 10:09 | Emergency (ER) | payer OTHER ==
[2022-04-26] MEDS ORDERED: Erythromycin 3.5 GM OPHTH. OP ONE (10:41)
--- NOTE | 2022-04-26 10:42 | ERPHSYRPT ---
- History of Present Illness Time Seen by Provider: 04/26/22 10:43 Source: patient Exam Limitations: no limitations Patient Subjective Stated Complaint: Pt reports "I had this thing come on my eye for the last couple of days. I didn't think it was anything to worry about so I haven't done anything for it. I wake up and it is sometimes crusty." Triage Nursing Assessment: Pt ambulated to cot with steady upright gait. Alert and oriented x3. No apparent respiratory distress. Complaints of lesion on left upper eyelid, red with no apparent drainage x2 days. Pt reports occassionly will make vision seem blurred, eyeglasses prescription is up to date. Physician History: 56-year-old female presents to our ED for evaluation and treatment of a stye left eye upper lid lateral margin that was first observed couple days ago. Patient states she woke this morning. Left crusty eye. No acute change in vision. Symptoms are mild to moderate in intensity. No specific worsening improving factors. No associated symptoms. No fever. No headache. No eye pain. Patient voices no other complaints or concerns at this time. Portions of this note were created with voice recognition technology. There may be grammatical, spelling, punctuation or sound alike errors Timing/Duration: day(s) (2 days ago) Severity: moderate Modifying Factors: Improves With: nothing Associated Symptoms: denies symptoms Allergies/Adverse Reactions: No Known Drug Allergies Allergy (Verified 04/26/22 10:24) Home Medications: Cyanocobalamin 1000 Mcg/ml [Cyanocobalamin B-12 1000 MCG/ML] 1,000 mcg PO DAILY 04/26/22 [History] Insulin Glargine,Hum.rec.anlog [Basaglar Tempo Pen U-100] 20 units SQ DAILY 04/26/22 [History] Loratadine 10 mg [Claritin 10 mg] 10 mg PO DAILY 04/26/22 [History] Trazodone HCl 50 mg [Desyrel 50 mg] 50 mg PO DAILY 04/26/22 [History] Hx Tetanus, Diphtheria Vaccination/Date Given: No Hx Influenza Vaccination/Date Given: Yes Hx Pneumococcal Vaccination/Date Given: No Travel Risk - International Travel Have you traveled outside of the country in past 3 weeks: No - Coronavirus Screening Are you exhibiting any of the following symptoms?: No Close contact with a COVID-19 positive Pt in past 14-21 Days: No - Vaccine Status Have you recieved a Covid-19 vaccination: No - Review of Systems Constitutional: No Symptoms, No Fever, No Chills Eyes: No Symptoms Ears, Nose, & Throat: No Symptoms Respiratory: No Symptoms, No Cough, No Dyspnea Cardiac: No Symptoms, No Chest Pain, No Edema, No Syncope Abdominal/Gastrointestinal: No Symptoms, No Abdominal Pain, No Nausea, No Vomiting, No Diarrhea Genitourinary Symptoms: No Symptoms, No Dysuria Musculoskeletal: No Symptoms, No Back Pain, No Neck Pain Skin: No Symptoms, No Rash Neurological: No Symptoms, No Dizziness, No Focal Weakness, No Sensory Changes Psychological: No Symptoms Endocrine: No Symptoms Hematologic/Lymphatic: No Symptoms Immunological/Allergic: No Symptoms All Other Systems: Reviewed and Negative - Past Medical History Pertinent Past Medical History: Yes Neurological History: No Pertinent History ENT History: Glaucoma Cardiac History: No Pertinent History Respiratory History: COPD Endocrine Medical History: Diabetes Type II, Other Musculoskeletal History: Arthritis GI Medical History: Cirrhosis, Pancreatitis Other Medical History: Cirrhosis of the liver, pancreatitis, COVID-19, R shoulder labrum repair (2010), achilles tendon repair (2009), , miscarriage, B hand tendonitis, neuropathy B hands, carpal tunnels (B), trigger fingers (B thumbs and ring fingers) - Past Surgical History Past Surgical History: Yes Cardiac: Cardiac Catheterization Genitourinary: Other Female Surgical History: Section, Other Other Surgical History: achilles tendon, kidney stone with stent (now removed), - Social History Smoking Status: Former smoker Exposure to second hand smoke: Yes Drug Use: marijuana Patient Lives Alone: No - Nursing Vital Signs Nursing Vital Signs: Initial Vital Signs Temperature 97.4 F 04/26/22 10:16 Pulse Rate 68 04/26/22 10:16 Respiratory Rate 16 04/26/22 10:16 Blood Pressure 154/109 04/26/22 10:16 O2 Sat by Pulse Oximetry 100 04/26/22 10:16 Pain Scale Pain Intensity 9 - Physical Exam General Appearance: no apparent distress, alert Eye Exam: PERRL/EOMI, eyes nml inspection, other (Hordeolum left eye upper lid lateral margin) Ears, Nose, Throat Exam: normal ENT inspection, TMs normal, pharynx normal, moist mucous membranes Neck Exam: normal inspection, non-tender, supple, full range of motion Respiratory Exam: normal breath sounds, lungs clear, airway intact, No respiratory distress Cardiovascular Exam: regular rate/rhythm, normal heart sounds, normal peripheral pulses Gastrointestinal/Abdomen Exam: soft, normal bowel sounds, No tenderness, No mass Back Exam: normal inspection, normal range of motion, No CVA tenderness, No vertebral tenderness Extremity Exam: normal inspection, normal range of motion, pelvis stable Neurologic Exam: alert, oriented x 3, cooperative, normal mood/affect, nml cerebellar function, nml station & gait, sensation nml, No motor deficits Skin Exam: normal color, warm, dry, No rash Lymphatic Exam: No adenopathy SpO2 Interpretation: normal SpO2: 100 O2 Delivery: Room Air - Course Nursing assessment & vital signs reviewed: Yes - Progress Progress: improved Progress Note: Patient has a stye to left eye upper lid lateral margin. We applied erythromycin ophthalmic. A prescription for the same was forwarded to patient's pharmacy. Patient advised to follow-up with her ag service manager within 48 hours for evaluation. Patient agreed to do so. Patient has no acute change in vision. No other associated symptomology. No indication for further work-up or imaging studies. Will discharge home. Patient voices no other complaints or concerns at this time. Portions of this note were created with voice recognition technology. There may be grammatical, spelling, punctuation or sound alike errors 04/26/22 10:45 Counseled pt/family regarding: diagnosis, need for follow-up - Departure Departure Disposition: Home Clinical Impression: Hordeolum externum left upper eyelid, Conjunctivitis, left eye Condition: Stable Critical Care Time: No Referrals: SUZIE YOUNG DO [Primary Care Provider] - Follow up/PCP as directed Prescriptions: Erythromycin Base 3.5 gm [Erythromycin 3.5 GM OPHTH.] 3.5 gm OP QID 7 Days #1
[2022-04-26] MEDS ORDERED: Erythromycin 1 GM ONE (10:43)
[2022-04-26 10:52] VITALS: BP 133/86; PULSE 64; O2SAT 96
== END 2022-04-26 10:56 | disposition home or self-care (01) ==
LOC: ED 10:09
DX: H00.014 Hordeolum externum left upper eyelid (principal); H10.9 Unspecified conjunctivitis; E11.9 Type 2 diabetes mellitus without complications; Z79.4 Long term (current) use of insulin; Z79.899 Other long term (current) drug therapy; Z28.310 Unvaccinated for COVID-19; Z86.16 Personal history of COVID-19
CPT/HCPCS: 99281; A9270-GY

== ENCOUNTER 2022-05-31 09:06 | Emergency (ER) | payer OTHER ==
--- NOTE | 2022-05-31 09:10 | ERPHSYRPT ---
- History of Present Illness Time Seen by Provider: 05/31/22 09:10 Historian: patient Exam Limitations: no limitations Physician History: This is an insulin-dependent diabetic obese 56-year-old white female patient of Dr. Marquez who has had minimal abdominal tenderness but has noticed in the last several days increasing abdominal distention. Patient states that she was diagnosed with cirrhosis about a year ago in [place]. She does not recall the actual diagnosis behind the cirrhosis. However she does not consume alcohol. She does smoke marijuana occasionally. She is a former smoker of tobacco and has not smoked tobacco in several years. Patient does have a history of pancreatitis in the past. She has been having normal bowel movements per her report. She has not had any vomiting. Patient has hyperlipidemia, COPD. She has no significant cardiac history. Timing/Duration: day(s) (Noticed increasing abdominal distention over several days), worse Activities at Onset: none Quality: fullness, pressure Abdominal Pain Onset Location: generalized abdomen Pain Radiation: no radiation Severity of Pain-Max: mild Severity of Pain-Current: mild Associated Symptoms: denies symptoms, No chest pain, No shortness of breath Previous symptoms: no prior history Allergies/Adverse Reactions: No Known Drug Allergies Allergy (Verified 04/26/22 10:24) Home Medications: Insulin Glargine,Hum.rec.anlog [Basaglar Tempo Pen U-100] 20 units SQ DAILY 04/26/22 [History] Trazodone HCl 50 mg [Desyrel 50 mg] 50 mg PO DAILY 04/26/22 [History] Hx Tetanus, Diphtheria Vaccination/Date Given: No Hx Influenza Vaccination/Date Given: Yes Hx Pneumococcal Vaccination/Date Given: No Travel Risk - International Travel Have you traveled outside of the country in past 3 weeks: No - Coronavirus Screening Are you exhibiting any of the following symptoms?: No Close contact with a COVID-19 positive Pt in past 14-21 Days: No - Vaccine Status Have you recieved a Covid-19 vaccination: No - Review of Systems Constitutional: No Symptoms Eyes: No Symptoms Ears, Nose, & Throat: No Symptoms Respiratory: No Symptoms Cardiac: No Symptoms Abdominal/Gastrointestinal: Abdominal Pain (Very mild with distention), No Nausea, No Vomiting, No Diarrhea, No Constipation Genitourinary Symptoms: No Symptoms Musculoskeletal: No Symptoms Skin: No Symptoms Neurological: No Symptoms Psychological: No Symptoms Endocrine: No Symptoms Hematologic/Lymphatic: No Symptoms Immunological/Allergic: No Symptoms All Other Systems: Reviewed and Negative - Past Medical History Pertinent Past Medical History: Yes Neurological History: No Pertinent History ENT History: Glaucoma Cardiac History: No Pertinent History Respiratory History: COPD Endocrine Medical History: Diabetes Type II Musculoskeletal History: Arthritis GI Medical History: Cirrhosis, Pancreatitis Other Medical History: Cirrhosis of the liver, pancreatitis, COVID-19, R shoul jeffry labrum repair (2010), achilles tendon repair (2009), , miscarriage, B hand tendonitis, neuropathy B hands, carpal tunnels (B), trigger fingers (B thumbs and ring fingers) - Past Surgical History Past Surgical History: Yes Cardiac: Cardiac Catheterization Genitourinary: Other Female Surgical History: Section, Other Other Surgical History: achilles tendon, kidney stone with stent (now removed), - Social History Smoking Status: Former smoker Exposure to second hand smoke: Yes Drug Use: marijuana Patient Lives Alone: No - Nursing Vital Signs Nursing Vital Signs: Initial Vital Signs Temperature 97.2 F 05/31/22 09:14 Pulse Rate 84 05/31/22 09:14 Respiratory Rate 20 05/31/22 09:14 Blood Pressure 128/80 05/31/22 09:14 O2 Sat by Pulse Oximetry 98 05/31/22 09:14 Pain Scale Pain Intensity 4 - Physical Exam General Appearance: no apparent distress, alert, anxiety, obese Eye Exam: PERRL/EOMI, eyes nml inspection Ears, Nose, Throat Exam: normal ENT inspection, moist mucous membranes Neck Exam: normal inspection, non-tender, supple, full range of motion Respiratory Exam: normal breath sounds, lungs clear, airway intact, No chest tenderness, No respiratory distress Cardiovascular Exam: regular rate/rhythm, normal heart sounds, normal peripheral pulses Gastrointestinal/Abdomen Exam: soft, normal bowel sounds, tenderness (Very mild with palpation. Generalized), distention (Generalized) Pelvic Exam: not done Rectal Exam: not done Back Exam: normal inspection, normal range of motion, No CVA tenderness, No vertebral tenderness Extremity Exam: normal inspection, normal range of motion, pelvis stable Neurologic Exam: alert, oriented x 3, cooperative, vocational education teacher II-XII nml as tested, normal mood/affect, nml cerebellar function, nml station & gait, sensation nml Skin Exam: normal color, warm, dry Lymphatic Exam: No adenopathy SpO2 Interpretation: normal O2 Delivery: Room Air - Course Nursing assessment & vital signs reviewed: Yes Ordered Tests: Active Orders 24 hr Category Date Time Status IV Insertion STAT Care 05/31/22 09:21 Active ABDOMEN AND PELVIS W/0 CONTRAS [CT] Stat Exams 05/31/22 09:22 Completed AMYLASE Stat Lab 05/31/22 09:32 Completed CBC W DIFF Stat Lab 05/31/22 09:32 Completed CMP Stat Lab 05/31/22 09:32 Completed LIPASE Stat Lab 05/31/22 09:32 Completed UA W/RFX UR CULTURE Stat Lab 05/31/22 09:32 Completed Lab/Rad Data: Laboratory Result Diagrams 05/31/22 09:32 05/31/22 09:32 Laboratory Results 05/31/22 05/31/22 05/31/22 Range/Units 09:32 09:32 09:32 WBC 7.5 (4.0-10.5) x10^3/uL RBC 5.46 H (4.1-5.4) x10^6/uL Hgb 15.1 (12.0-16.0) g/dL Hct 47.3 H (35-47) % MCV 86.6 (78-100) fL MCH 27.7 (26-32) pg MCHC 31.9 L (32-36) g/dL RDW 14.1 H (11.5-14.0) % Plt Count 193 (150-450) x10^3/uL MPV 11.3 H (7.5-11.0) fL Gran % 57.3 (36.0-66.0) % Immature Gran % (Auto) 0.8 H (0.00-0.4) % Nucleat RBC Rel Count 0.0 (0.00-0.1) % Eos # (Auto) 0.27 (0-0.5) x10^3/uL Immature Gran # (Auto) 0.06 H (0.00-0.03) x10^3u/L Absolute Lymphs (auto) 2.19 (1.0-4.6) x10^3/uL Absolute Monos (auto) 0.60 (0.0-1.3) x10^3/uL Absolute Nucleated RBC 0.00 (0.00-0.01) x10^3u/L Lymphocytes % 29.4 (24.0-44.0) % Monocytes % 8.1 (0.0-12.0) % Eosinophils % 3.6 (0.00-5.0) % Basophils % 0.8 (0.0-0.4) % Absolute Granulocytes 4.27 (1.4-6.9) x10^3/uL Basophils # 0.06 (0-0.4) x10^3/uL Sodium 137 (137-145) mmol/L Potassium 4.1 (3.5-5.1) mmol/L Chloride 104 (98-107) mmol/L Carbon Dioxide 28 (22-30) mmol/L Anion Gap 9.6 (5-15) MEQ/L BUN 12 (7-17) mg/dL Creatinine 0.84 (0.52-1.04) mg/dL Estimated GFR > 60.0 ML/MIN Glucose 120 H (74-106) mg/dL Calcium 8.9 (8.4-10.2) mg/dL Total Bilirubin 0.40 (0.2-1.3) mg/dL AST 41 H (14-36) U/L ALT 39 H (0-35) U/L Alkaline Phosphatase 87 (38-126) U/L Serum Total Protein 6.9 (6.3-8.2) g/dL Albumin 4.1 (3.5-5.0) g/dL Amylase 58 (30-110) U/L Lipase 40 (23-300) U/L Urine Color Yellow (Yellow) Urine Appearance Clear (Clear) Urine pH 5.5 (4.6-8.0) Ur Specific [place] 1.015 (1.005-1.030) Urine Protein Negative (Negative) Urine Glucose (UA) Negative (Negative) mg/dL Urine Ketones Negative (Negative) Urine Blood Negative (Negative) Urine Nitrite Negative (Negative) Urine Bilirubin Negative (Negative) Urine Urobilinogen 1.0 A (0.2) mg/dL Ur Leukocyte Esterase Negative (Negative) U Hyaline Cast (Auto) NONE SEEN (0-2) /LPF Urine Microscopic RBC 0-2 (0-5) /HPF Urine Microscopic WBC 0-2 (0-5) /HPF Ur Epithelial Cells None Seen (None Seen) /HPF Urine Bacteria None Seen (None Seen) /HPF Urine Culture Reflexed NO (NO) - Progress Progress: unchanged Progress Note: 05/31/22 10:39 CAT scan of the abdomen pelvis shows indeterminate bilateral pulmonary noncalcified micronodules. There is small hiatal hernia, duodenal diverticulum, mild diffuse fecal stasis, diffuse colonic diverticulosis without diverticulitis. There is splenomegaly. There is no abdominal aortic aneurysm. There is no evidence of bowel obstruction. There is a normal appendix. Counseled pt/family regarding: lab results, diagnosis, need for follow-up, rad results - Departure Departure Disposition: Home Clinical Impression: Abdominal distention, Constipation Condition: Stable Critical Care Time: No Referrals: SUZIE MARQUEZ, [Primary Care Provider] - Follow up/PCP as directed Additional Instructions: Plenty of fluids. If there are no contraindications, use MiraLAX [id number]. Follow-up with your primary care provider for further evaluation and management. Continue your medications as prescribed
[2022-05-31 09:39] LABS: Absolute Neutrophil Ct (ANC) 4.27 x10^3/uL (1.4-6.9); BASOPHIL % 0.8 % (0.0-0.4); Basophil (Absolute #) 0.06 x10^3/uL (0-0.4); Eosinophil % 3.6 % (0.00-5.0); Eosinophil (Absolute #) 0.27 x10^3/uL (0-0.5); Hematocrit 47.3 % (35-47); Hemoglobin 15.1 g/dL (12.0-16.0); IMMATURE GRAN # 0.06 x10^3u/L (0.00-0.03); IMMATURE GRAN % 0.8 % (0.00-0.4); Lymphocyte (Absolute #) 2.19 x10^3/uL (1.0-4.6); Lymphocytes % 29.4 % (24.0-44.0); Mean Cell Volume 86.6 fL (78-100); Mean Corpuscular Hemoglobin 27.7 pg (26-32); Mean Corpuscular Hgb Concent. 31.9 g/dL (32-36); Mean Platelet Volume 11.3 fL (7.5-11.0); Monocytes % 8.1 % (0.0-12.0); Neutrophil % 57.3 % (36.0-66.0); Platelet Count 193 x10^3/uL (150-450); Red Blood Count 5.46 x10^6/uL (4.1-5.4); Red Cell Distribution Width 14.1 % (11.5-14.0); White Blood Count 7.5 x10^3/uL (4.0-10.5)
[2022-05-31 09:45] LABS: Appearance Clear (Clear); Bacteria None Seen /HPF (None Seen); Bilirubin Negative (Negative); Blood Negative (Negative); Epithelial Cells None Seen /HPF (None Seen); Glucose, Urine Negative (Negative); Hyaline Casts NONE SEEN /LPF (0-2); Ketones Negative (Negative); Leukocyte Esterase Negative (Negative); Nitrite Negative (Negative); Ph 5.5 (4.6-8.0); Protein,Urine Dip Negative (Negative); RBC 0-2 /HPF (0-5); Specific Gravity 1.015 (1.005-1.030); WBC 0-2 /HPF (0-5)
[2022-05-31 09:47] LABS: ADD URINE CULTURE? NO (NO)
[2022-05-31 09:52] LABS: ALBUMIN 4.1 g/dL (3.5-5.0); ALKALINE PHOSPHATASE 87 U/L (38-126); AMYLASE 58 U/L (30-110); ANION GAP 9.6 MEQ/L (5-15); BLOOD UREA NITROGEN 12 mg/dL (7-17); CHLORIDE 104 mmol/L (98-107); Calcium 8.9 mg/dL (8.4-10.2); Carbon Dioxide 28 mmol/L (22-30); Creatinine 1 0.84 mg/dL (0.52-1.04); EST GLOMERULAR FILTRATION RATE > 60.0 ML/MIN; Glucose 120 mg/dL (74-106); LIPASE 40 U/L (23-300); Potassium 4.1 mmol/L (3.5-5.1); SGOT/AST 41 U/L (14-36); SGPT/ALT 39 U/L (0-35); SODIUM 137 mmol/L (137-145); Total Protein 6.9 g/dL (6.3-8.2)
--- NOTE | 2022-05-31 10:06 | XRAY ---
Indication: Abdomen distention. Cirrhosis. Recurrent pancreatitis. Multiple contiguous images obtained through the abdomen and pelvis without contrast. Comparison: None Lung bases demonstrates minimal dependent atelectasis. Indeterminant 5 mm right middle/right lower lobe and 3 mm left lower lobe noncalcified micronodules. Heart not enlarged. Small hiatal hernia. Noncontrasted stomach and bowel loops appear nonobstructed with normal appendix. 2.5 cm duodenal diverticulum. Mild diffuse scattered colonic fecal debris throughout and mild/moderate diffuse colonic diverticulosis without diverticulitis. No free fluid/air. Spleen is enlarged measuring 14 cm. Remaining liver, gallbladder, pancreas, spleen, adrenal glands, kidneys, ureters, bladder, and uterus appear unremarkable for noncontrast exam. Minimal aortoiliac calcifications without AAA. Osseous structures intact with minimal/mild degenerative changes throughout the spine greatest at the lumbosacral junction. Mild degenerative changes of both hips. No ventral or inguinal hernias. Impression: 1. Indeterminant bilateral pulmonary noncalcified micronodules. Outside comparison studies recommended if available. If not, consider CT chest to establish baseline with follow-up per Fleischner guidelines. 2. Small hiatal hernia, duodenal diverticulum, mild diffuse fecal stasis, diffuse colonic diverticulosis, splenomegaly, arteriosclerotic disease, and chronic bony findings. 3. Remaining CT abdomen/pelvis without contrast exam is negative.
[2022-05-31 11:06] VITALS: BP 154/83; PULSE 82; O2SAT 98
== END 2022-05-31 11:25 | disposition home or self-care (01) ==
LOC: ED 09:06
DX: R14.0 Abdominal distension (gaseous) (principal); K59.00 Constipation, unspecified; R10.84 Generalized abdominal pain; E78.5 Hyperlipidemia, unspecified; E11.9 Type 2 diabetes mellitus without complications; Z79.4 Long term (current) use of insulin; Z79.899 Other long term (current) drug therapy; Z86.16 Personal history of COVID-19
CPT/HCPCS: 36415; 74176; 80053; 81001; 82150; 83690; 85025; 99283

== ENCOUNTER 2022-06-18 06:42 | Emergency (ER) | payer OTHER ==
--- NOTE | 2022-06-18 07:29 | ERPHSYRPT ---
- History of Present Illness Source: patient Exam Limitations: no limitations Patient Subjective Stated Complaint: sore throat x5 days Triage Nursing Assessment: pt ambulated into ER without diff. Pt c/o sore throat x5 days. Throat pink. Lungs clear, heart tones reg. Pt has an occasional dry cough. Abd lg, round with active bs x4 quad, nontender. Pt had a pain to LLQ this morning but denies any pain at this time and states, "I need to have a BM now". Physician History: [address] x4[address], mild cough, and mild coryza. She denies N/V/D/fever. Pt has a h/o DM/cirrhosis of the liver. Timing/Duration: abrupt onset Severity: mild ENT Location: throat Prearrival Treatment: no prearrival treatment Modifying Factors: Improves With: other (Nothing makes better or worse) Associated Symptoms: cough, nasal congestion/drainage, sore throat, No ear pain (R), No ear pain (L), No fever, No chills, No change in hearing, No dizziness, No drooling, No ear drainage, No facial pain/swelling, No headache, No hearing loss, No jaw pain, No malaise, No motion sickness, No epistaxis, No nasal fore ign body, No neck pain, No poor fluid intake, No poor solids intake, No ringing of ears, No swollen glands, No sinus infection, No tooth pain, No difficulty swallowing, No voice change Allergies/Adverse Reactions: No Known Drug Allergies Allergy (Verified 04/26/22 10:24) Home Medications: Insulin Glargine,Hum.rec.anlog [Basaglar Tempo Pen U-100] 40 units SQ DAILY 04/26/22 [History] Trazodone HCl 50 mg [Desyrel 50 mg] 50 mg PO DAILY 04/26/22 [History] Ertugliflozin Pidolate [Steglatro] 15 mg PO DAILY 06/18/22 [History] Insulin Lispro [Admelog Solostar] 14 units SQ TIDWMEALS 06/18/22 [History] Hx Tetanus, Diphtheria Vaccination/Date Given: No Hx Influenza Vaccination/Date Given: Yes Hx Pneumococcal Vaccination/Date Given: No Immunizations Up to Date: No Travel Risk - International Travel Have you traveled outside of the country in past 3 weeks: No - Coronavirus Screening Are you exhibiting any of the following symptoms?: Yes Symptoms: Cough: New Onset Close contact with a COVID-19 positive Pt in past 14-21 Days: No - Vaccine Status Have you recieved a Covid-19 vaccination: No - Review of Systems Constitutional: No Symptoms, Chills, Malaise Eyes: No Symptoms Ears, Nose, & Throat: No Symptoms, Nose Pain, Nose Congestion Respiratory: No Symptoms, Cough Cardiac: No Symptoms Abdominal/Gastrointestinal: No Symptoms Genitourinary Symptoms: No Symptoms Musculoskeletal: No Symptoms Skin: No Symptoms Neurological: No Symptoms Psychological: No Symptoms Endocrine: No Symptoms Hematologic/Lymphatic: No Symptoms Immunological/Allergic: No Symptoms - Past Medical History Pertinent Past Medical History: Yes Neurological History: No Pertinent History ENT History: Glaucoma Cardiac History: No Pertinent History Respiratory History: COPD Endocrine Medical History: Diabetes Type II Musculoskeletal History: Arthritis GI Medical History: Cirrhosis, Pancreatitis Other Medical History: Cirrhosis of the liver, pancreatitis, COVID-19, R shoulder labrum repair (2010), achilles tendon repair (2009), , miscarriage, B hand tendonitis, neuropathy B hands, carpal tunnels (B), trigger fingers (B thumbs and ring fingers) - Past Surgical History Past Surgical History: Yes Cardiac: Cardiac Catheterization Genitourinary: Other Female Surgical History: Section, Other Other Surgical History: achilles tendon, kidney stone with stent (now removed), - Social History Smoking Status: Former smoker Exposure to second hand smoke: Yes Drug Use: marijuana Patient Lives Alone: No Significant Family History: no pertinent family hx - Nursing Vital Signs Nursing Vital Signs: Initial Vital Signs Temperature 96.1 F 06/18/22 06:54 Pulse Rate 94 H 06/18/22 06:54 Respiratory Rate 18 06/18/22 06:54 Blood Pressure 128/81 06/18/22 06:54 O2 Sat by Pulse Oximetry 97 06/18/22 06:54 Pain Scale Pain Intensity 4 WNL - Physical Exam General Appearance: no apparent distress Eye Exam: bilateral eye: normal inspection, PERRL, EOMI Ear Exam: bilateral ear: auricle normal, canal normal, TM normal, other (Large amount of cerumen B) Nasal Exam: normal inspection Throat Exam: normal, pharynx normal, moist mucus membranes, No pharynx swelling, No pharynx tenderness, No tongue swollen Neck Exam: normal inspection, non-tender, supple, full range of motion, trachea midline, No Brudzinski's sign, No Kernig's sign Cardiovascular/Respiratory Exam: chest non-tender, normal breath sounds, regular rate/rhythm, heart sounds normal, no respiratory distress Abdominal Exam: non-tender, soft Neurologic Exam: alert, oriented x 3, cooperative, apparel cutter II-XII nml as tested, normal mood/affect, nml cerebellar function, nml station & gait, sensation nml, No motor deficits, No sensory deficit Skin Exam: normal color, warm, dry SpO2 Interpretation: normal SpO2: 97 O2 Delivery: Room Air - Course Nursing assessment & vital signs reviewed: Yes Ordered Tests: Medication Summary Discontinued Medications Generic Name Dose Route Start Last Admin Trade Name Freq PRN Reason Stop Dose Admin Penicillin G Benzathine 1.2 mu 06/18/22 08:16 Penicillin G Benzathine 1.2 Mu/2 Ml Syringe IM 06/18/22 08:17 STAT ONE Lab/Rad Data: Laboratory Results 06/18/22 06/18/22 Range/Units 07:25 07:25 Influenza Type A Ag NEGATIVE (NEGATIVE) Influenza Type B Ag NEGATIVE (NEGATIVE) RSV (PCR) NEGATIVE (Negative) SARS-CoV-2 (PCR) NEGATIVE (NEGATIVE) Group A Strep Antibody NOT DETECTED (NEGATIVE) - Progress Progress Note: 06/18/22 08:13 Nursing note and vital signs removed No food or housing insecurities noted Labs reviewed and shared w pt Pt most likely has a viral pharyngitis but is extremely upset that she is not getting an antibiotic. I tried to explain to her that an antibiotic will not cure a virus, but to no avail, she still demanded an antibiotic. 1.2 MU of Sarath given, along w 15ml of viscous Lidocaine to swish/gargle/spit. 06/18/22 08:18 Counseled pt/family regarding: lab results, diagnosis, need for follow-up - Departure Departure Disposition: Home Clinical Impression: Viral URI Condition: Stable Critical Care Time: No Referrals: SUZIE YOUNG, [Primary Care Provider] - Follow up/PCP as directed Instructions: Sore Throat, Adult (DC), Viral Pharyngitis (DC) Additional Instructions: Follow up with your family MD in 1-2 days Return to ER for worsening of symptoms
[2022-06-18 08:06] LABS: INFLUENZA A NEGATIVE (NEGATIVE); INFLUENZA B NEGATIVE (NEGATIVE); RESPIRATORY SYNCTIAL VIRUS NEGATIVE (Negative); SARS-CoV-2 Xpert Express NEGATIVE (NEGATIVE)
[2022-06-18 08:15] VITALS: O2SAT 97
[2022-06-18] MEDS ORDERED: Bicillin L-A 1.2 Mu/2ML SYRINGE IM ONE ×2 (08:16→08:20)
[2022-06-18] MEDS ORDERED: XYLOCAINE VISCOUS 2% 15 ML CUP PO ONE (08:17)
[2022-06-18] MEDS ORDERED: XYLOCAINE VISCOUS 2% 15 ML CUP ONE (08:19)
[2022-06-18 08:50] VITALS: BP 123/83; PULSE 82
== END 2022-06-18 08:50 | disposition home or self-care (01) ==
LOC: ED 06:42
DX: J06.9 Acute upper respiratory infection, unspecified (principal); J02.9 Acute pharyngitis, unspecified; R05.1 Acute cough; R09.81 Nasal congestion; E11.9 Type 2 diabetes mellitus without complications; Z79.4 Long term (current) use of insulin; Z79.899 Other long term (current) drug therapy; Z28.310 Unvaccinated for COVID-19; Z86.16 Personal history of COVID-19
CPT/HCPCS: 0241U; 87651; 96372; 99283; J0561; A9270-GY

== ENCOUNTER 2022-07-07 07:51 | Day surgery (SDC) | payer OTHER ==
[2022-07-07] MEDS ORDERED: Depo-Medrol 40 MG/ML IM ONE (07:52)
[2022-07-07] MEDS ORDERED: BUPIVACAINE 0.5% VIAL IJ ONE (07:52)
[2022-07-07] MEDS ORDERED: DIPRIVAN 200 MG/20 ML IV ONE (09:12)
--- NOTE | 2022-07-07 10:26 | XRAY ---
Indication: Bilateral SI joint injection. Intraoperative fluoroscopy provided for 16 seconds. 4 digital spot image submitted for interpretation demonstrates posterior needle tip projecting over the left and right SI joint. Correlate with intraoperative findings/report.
--- NOTE | 2022-07-07 11:15 | XRAY ---
16 seconds of fluoroscopy was used in surgery for a bilateral sacroiliac joint injection.
[2022-07-07] MEDS ORDERED: Lactated Ringers 1,000 ML IV ONE (14:14)
== END 2022-07-07 09:40 | disposition home or self-care (01) ==
LOC: SDC-PAIN 07:51
PROVIDERS: ATTEND Psychiatry & Neurology Pain Medicine
DX: M46.1 Sacroiliitis, not elsewhere classified (principal); E11.9 Type 2 diabetes mellitus without complications; Z79.899 Other long term (current) drug therapy
CPT/HCPCS: 01992; 27096; 72202; 77002; 82947; G0260; J1030; J2704; Q9966

== ENCOUNTER 2022-09-08 06:48 | Day surgery (SDC) | payer OTHER ==
[2022-09-08] MEDS ORDERED: BUPIVACAINE 0.5% VIAL IJ ONE (06:49)
[2022-09-08] MEDS ORDERED: Depo-Medrol 40 MG/ML IM ONE (06:49)
[2022-09-08] MEDS ORDERED: DIPRIVAN 200 MG/20 ML IV ONE (08:17)
[2022-09-08] MEDS ORDERED: Lactated Ringers 1,000 ML IV ONE (11:43)
--- NOTE | 2022-09-08 18:28 | XRAY ---
Indication: Bilateral hip injection. Intraoperative fluoroscopy provided for 18 seconds. 2 digital spot image submitted for interpretation demonstrates needle tip projecting lateral to the left and right femur necks. Small amount of contrast injected for both needle tip placement. Correlate with intraoperative findings/report.
--- NOTE | 2022-09-08 19:04 | XRAY ---
18 seconds of fluoroscopy was used in surgery for bilateral hips intra-articular injections.
== END 2022-09-08 08:45 | disposition home or self-care (01) ==
LOC: SDC-PAIN 06:48
PROVIDERS: ATTEND Psychiatry & Neurology Pain Medicine
DX: M16.0 Bilateral primary osteoarthritis of hip (principal); E11.9 Type 2 diabetes mellitus without complications; Z79.899 Other long term (current) drug therapy
CPT/HCPCS: 20610; 73521; 77002; 82947; J1030; J2704; Q9966

== ENCOUNTER 2022-09-19 15:08 | Emergency (ER) | payer OTHER ==
[2022-09-19 15:45] VITALS: BP 137/85; PULSE 86; O2SAT 96
[2022-09-19 16:10] LABS: VBG BASE EXCESS 0.2 (-2.0-2.0); VBG CARBOXYHEMOGLOBIN 2.6 % T HGB (0.0-6.9); VBG HEMOGLOBIN 16.6; VBG O2 SATURATION 53.6 (95-100); VBG POTASSIUM 3.9 (3.5-5.1); VBG pH 7.34 (7.32-7.42)
[2022-09-19 16:25] LABS: Absolute Neutrophil Ct (ANC) 5.97 x10^3/uL (1.4-6.9); BASOPHIL % 0.9 % (0.0-0.4); Basophil (Absolute #) 0.08 x10^3/uL (0-0.4); Eosinophil % 2.4 % (0.00-5.0); Eosinophil (Absolute #) 0.22 x10^3/uL (0-0.5); Hematocrit 51.5 % (35-47); Hemoglobin 16.6 g/dL (12.0-16.0); IMMATURE GRAN # 0.05 x10^3u/L (0.00-0.03); IMMATURE GRAN % 0.6 % (0.00-0.4); Lymphocyte (Absolute #) 2.16 x10^3/uL (1.0-4.6); Lymphocytes % 23.9 % (24.0-44.0); Mean Cell Volume 86.7 fL (78-100); Mean Corpuscular Hemoglobin 27.9 pg (26-32); Mean Corpuscular Hgb Concent. 32.2 g/dL (32-36); Mean Platelet Volume 12.3 fL (7.5-11.0); Monocyte (Absolute #) 0.57 x10^3/uL (0.0-1.3); Monocytes % 6.3 % (0.0-12.0); Neutrophil % 65.9 % (36.0-66.0); Platelet Count 240 x10^3/uL (150-450); Red Blood Count 5.94 x10^6/uL (4.1-5.4); Red Cell Distribution Width 13.2 % (11.5-14.0); White Blood Count 9.1 x10^3/uL (4.0-10.5)
[2022-09-19 16:31] LABS: Appearance Clear (Clear); Bacteria None Seen /HPF (None Seen); Bilirubin Negative (Negative); Blood Negative (Negative); Epithelial Cells None Seen /HPF (None Seen); Glucose, Urine >=1000 mg/dL (Negative); Hyaline Casts NONE SEEN /LPF (0-2); Ketones Negative (Negative); Leukocyte Esterase Negative (Negative); Nitrite Negative (Negative); Protein,Urine Dip Negative (Negative); RBC 0-2 /HPF (0-5); Specific Gravity >=1.030 (1.005-1.030); Urobilinogen 0.2 mg/dL (0.2); WBC 0-2 /HPF (0-5)
[2022-09-19 16:36] LABS: ADD URINE CULTURE? NO (NO)
[2022-09-19 16:37] LABS: ALBUMIN 4.7 g/dL (3.5-5.0); ALKALINE PHOSPHATASE 123 U/L (38-126); ANION GAP 19.2 MEQ/L (5-15); BLOOD UREA NITROGEN 13 mg/dL (7-17); CHLORIDE 100 mmol/L (98-107); Calcium 9.3 mg/dL (8.4-10.2); Carbon Dioxide 25 mmol/L (22-30); Creatinine 1 0.86 mg/dL (0.52-1.04); EST GLOMERULAR FILTRATION RATE > 60.0 ML/MIN; Glucose 253 mg/dL (74-106); Potassium 4.1 mmol/L (3.5-5.1); SGOT/AST 34 U/L (14-36); SGPT/ALT 41 U/L (0-35); SODIUM 140 mmol/L (137-145); Total Protein 8.6 g/dL (6.3-8.2)
[2022-09-19] MEDS ORDERED: Sodium Chloride 0.9% 1000 ML 1,000 ML IV STA (17:16)
[2022-09-19] MEDS ORDERED: Sodium Chloride 0.9% 1000 ML 1,000 ML ONE (17:35)
--- NOTE | 2022-09-19 17:47 | ERPHSYRPT ---
- History of Present Illness Time Seen by Provider: 09/19/22 15:19 Source: patient Exam Limitations: no limitations Patient Subjective Stated Complaint: Pt states that she has been out of her insulin for 4-5 days due to getting steroid injections in her hips and she has an insulin pump and it increased her insulin causing her to use her allocated monthly insurance amount and she is able to get it tomorrow, states that her sugar has been running 175 to 250 Triage Nursing Assessment: Pt brought self to the ER, vitals wnl, rates pain as 3/10, pulses normal, skin n/w/d, has been trying to eat right and take in plenty of fluids, no difficulty breathing, denies N&V, doesn't appear to be in any distress Physician History: 57 years old diabetic with insulin pump presented in the ER with elevated blood sugar after she received steroid shots in both hips and insulin utilization was increased because of blood sugar staying high and she ran out for 5 days ago. Since then her blood sugar is staying between 1 80-2 50 and her usual blood sugar is around 140 with insulin. She will get insulin supply from pharmacy tomorrow. Denies any abdominal pain nausea or vomiting. No chest pain palpitations or shortness of breath. Allergies/Adverse Reactions: No Known Drug Allergies Allergy (Verified 09/19/22 15:44) Home Medications: Trazodone HCl 50 mg [Desyrel 50 mg] 100 mg PO DAILY 04/26/22 [History] Ertugliflozin Pidolate [Steglatro] 15 mg PO DAILY 06/18/22 [History] Insulin Lispro [Admelog Solostar] 115 units SQ DAILY 06/18/22 [History] Cariprazine HCl [Vraylar] 1.5 mg PO DAILY 09/19/22 [History] Omeprazole 40 mg PO DAILY 09/19/22 [History] Hx Tetanus, Diphtheria Vaccination/Date Given: No Hx Influenza Vaccination/Date Given: Yes Hx Pneumococcal Vaccination/Date Given: No Travel Risk - International Travel Have you traveled outside of the country in past 3 weeks: No - Coronavirus Screening Are you exhibiting any of the following symptoms?: No Close contact with a COVID-19 positive Pt in past 14-21 Days: No - Vaccine Status Have you recieved a Covid-19 vaccination: No - Review of Systems Constitutional: No Symptoms Eyes: No Symptoms Ears, Nose, & Throat: No Symptoms Respiratory: No Symptoms Cardiac: No Symptoms Abdominal/Gastrointestinal: No Symptoms Genitourinary Symptoms: No Symptoms Skin: No Symptoms Neurological: No Symptoms Hematologic/Lymphatic: No Symptoms Immunological/Allergic: No Symptoms - Past Medical History Pertinent Past Medical History: Yes Neurological History: No Pertinent History ENT History: Glaucoma Cardiac History: No Pertinent History Respiratory History: COPD Endocrine Medical History: Diabetes Type II Musculoskeletal History: Arthritis GI Medical History: Cirrhosis, Pancreatitis Other Medical History: Cirrhosis of the liver, pancreatitis, COVID-19, R shoulder labrum repair (2010), achilles tendon repair (2009), , misca rriage, B hand tendonitis, neuropathy B hands, carpal tunnels (B), trigger fingers (B thumbs and ring fingers) - Past Surgical History Past Surgical History: Yes Cardiac: Cardiac Catheterization Genitourinary: Other Female Surgical History: Section, Other Other Surgical History: achilles tendon, kidney stone with stent (now removed), bladder sling - Social History Smoking Status: Former smoker Exposure to second hand smoke: Yes Drug Use: marijuana Patient Lives Alone: No Significant Family History: no pertinent family hx - Nursing Vital Signs Nursing Vital Signs: Initial Vital Signs Temperature 97.9 F 09/19/22 15:20 Pulse Rate 86 09/19/22 15:20 Blood Pressure 137/85 09/19/22 15:20 O2 Sat by Pulse Oximetry 96 09/19/22 15:20 Pain Scale Pain Intensity 3 - Physical Exam General Appearance: no apparent distress, alert Eye Exam: PERRL/EOMI Ears, Nose, Throat Exam: normal ENT inspection Neck Exam: normal inspection, full range of motion Respiratory Exam: normal breath sounds, lungs clear Cardiovascular Exam: regular rate/rhythm, normal heart sounds Gastrointestinal/Abdomen Exam: soft, normal bowel sounds, No tenderness Back Exam: normal inspection, normal range of motion Extremity Exam: normal inspection, normal range of motion Neurologic Exam: alert, oriented x 3, cooperative Skin Exam: normal color SpO2 Interpretation: normal SpO2: 96 O2 Delivery: Room Air Ordered Tests: Active Orders 24 hr Category Date Time Status CBC W DIFF Stat Lab 09/19/22 16:19 Completed CMP Stat Lab 09/19/22 16:19 Completed POCT GLUCOSE Stat Lab 09/19/22 18:44 Completed UA W/RFX UR CULTURE Stat Lab 09/19/22 16:19 Completed VENOUS BLOOD GAS Urgent Lab 09/19/22 16:00 Completed Medication Summary Discontinued Medications Generic Name Dose Route Start Last Admin Trade Name Truong PRN Reason Stop Dose Admin Sodium Chloride 1,000 mls @ 999 mls/hr 09/19/22 17:16 09/19/22 17:36 Sodium Chloride 0.9% 1000 Ml IV 09/19/22 18:16 999 mls/hr .Q1H1M STA Administration Sodium Chloride Confirm 09/19/22 17:35 Sodium Chloride 0.9% 1000 Ml Administered 09/19/22 17:36 Dose 1,000 mls @ ud .ROUTE .STK-MED ONE Insulin Glargine 10 unit 09/19/22 18:35 09/19/22 18:56 Insulin Glargine 1 Unit SQ 09/19/22 18:36 Not Given ONCE STA Lab/Rad Data: Laboratory Result Diagrams 09/19/22 16:19 09/19/22 16:19 Laboratory Results 09/19/22 09/19/22 09/19/22 Range/Units 18:44 16:19 16:19 WBC 9.1 (4.0-10.5) x10^3/uL RBC 5.94 H (4.1-5.4) x10^6/uL Hgb 16.6 H (12.0-16.0) g/dL Hct 51.5 H (35-47) % MCV 86.7 (78-100) fL MCH 27.9 (26-32) pg MCHC 32.2 (32-36) g/dL RDW 13.2 (11.5-14.0) % Plt Count 240 (150-450) x10^3/uL MPV 12.3 H (7.5-11.0) fL Gran % 65.9 (36.0-66.0) % Immature Gran % (Auto) 0.6 H (0.00-0.4) % Nucleat RBC Rel Count 0.0 (0.00-0.1) % Eos # (Auto) 0.22 (0-0.5) x10^3/uL Immature Gran # (Auto) 0.05 H (0.00-0.03) x10^3u/L Absolute Lymphs (auto) 2.16 (1.0-4.6) x10^3/uL Absolute Monos (auto) 0.57 (0.0-1.3) x10^3/uL Absolute Nucleated RBC 0.00 (0.00-0.01) x10^3u/L Lymphocytes % 23.9 L (24.0-44.0) % Monocytes % 6.3 (0.0-12.0) % Eosinophils % 2.4 (0.00-5.0) % Basophils % 0.9 (0.0-0.4) % Absolute Granulocytes 5.97 (1.4-6.9) x10^3/uL Basophils # 0.08 (0-0.4) x10^3/uL pO2/FiO2 Ratio % VBG pH (7.32-7.42) VBG pCO2 at Pat Temp (42-55) mm/Hg VBG pO2 at Pat Temp (25-40) mm/Hg VBG HCO3 (22-28) meq/L VBG O2 Sat (Rafiq) (95-100) VBG Base Excess (-2.0-2.0) VBG Hemoglobin VBG Carboxyhemoglobin (0.0-6.9) % T HGB POC Potassium (3.5-5.1) Sodium 140 (137-145) mmol/L Potassium 4.1 (3.5-5.1) mmol/L Chloride 100 (98-107) mmol/L Carbon Dioxide 25 (22-30) mmol/L Anion Gap 19.2 H (5-15) MEQ/L BUN 13 (7-17) mg/dL Creatinine 0.86 (0.52-1.04) mg/dL Estimated GFR > 60.0 ML/MIN Glucose 253 H (74-106) mg/dL POC Glucometer 142 H (74 to 106) mg/dL Calcium 9.3 (8.4-10.2) mg/dL Total Bilirubin 0.60 (0.2-1.3) mg/dL AST 34 (14-36) U/L ALT 41 H (0-35) U/L Alkaline Phosphatase 123 (38-126) U/L Serum Total Protein 8.6 H (6.3-8.2) g/dL Albumin 4.7 (3.5-5.0) g/dL Urine Color (Yellow) Urine Appearance (Clear) Urine pH (4.6-8.0) Ur Specific [place] (1.005-1.030) Urine Protein (Negative) Urine Glucose (UA) (Negative) mg/dL Urine Ketones (Negative) Urine Blood (Negative) Urine Nitrite (Negative) Urine Bilirubin (Negative) Urine Urobilinogen (0.2) mg/dL Ur Leukocyte Esterase (Negative) U Hyaline Cast (Auto) (0-2) /LPF Urine Microscopic RBC (0-5) /HPF Urine Microscopic WBC (0-5) /HPF Ur Epithelial Cells (None Seen) /HPF Urine Bacteria (None Seen) /HPF Urine Culture Reflexed (NO) 09/19/22 09/19/22 Range/Units 16:19 16:00 WBC (4.0-10.5) x10^3/uL RBC (4.1-5.4) x10^6/uL Hgb (12.0-16.0) g/dL Hct (35-47) % MCV (78-100) fL MCH (26-32) pg MCHC (32-36) g/dL RDW (11.5-14.0) % Plt Count (150-450) x10^3/uL MPV (7.5-11.0) fL Gran % (36.0-66.0) % Immature Gran % (Auto) (0.00-0.4) % Nucleat RBC Rel Count (0.00-0.1) % Eos # (Auto) (0-0.5) x10^3/uL Immature Gran # (Auto) (0.00-0.03) x10^3u/L Absolute Lymphs (auto) (1.0-4.6) x10^3/uL Absolute Monos (auto) (0.0-1.3) x10^3/uL Absolute Nucleated RBC (0.00-0.01) x10^3u/L Lymphocytes % (24.0-44.0) % Monocytes % (0.0-12.0) % Eosinophils % (0.00-5.0) % Basophils % (0.0-0.4) % Absolute Granulocytes (1.4-6.9) x10^3/uL Basophils # (0-0.4) x10^3/uL pO2/FiO2 Ratio 21.0 % VBG pH 7.34 (7.32-7.42) VBG pCO2 at Pat Temp 50 (42-55) mm/Hg VBG pO2 at Pat Temp 33 (25-40) mm/Hg VBG HCO3 27.0 (22-28) meq/L VBG O2 Sat (Rafiq) 53.6 L (95-100) VBG Base Excess 0.2 (-2.0-2.0) VBG Hemoglobin 16.6 VBG Carboxyhemoglobin 2.6 (0.0-6.9) % T HGB POC Potassium 3.9 (3.5-5.1) Sodium (137-145) mmol/L Potassium (3.5-5.1) mmol/L Chloride (98-107) mmol/L Carbon Dioxide (22-30) mmol/L Anion Gap (5-15) MEQ/L BUN (7-17) mg/dL Creatinine (0.52-1.04) mg/dL Estimated GFR ML/MIN Glucose (74-106) mg/dL POC Glucometer (74 to 106) mg/dL Calcium (8.4-10.2) mg/dL Total Bilirubin (0.2-1.3) mg/dL AST (14-36) U/L ALT (0-35) U/L Alkaline Phosphatase (38-126) U/L Serum Total Protein (6.3-8.2) g/dL Albumin (3.5-5.0) g/dL Urine Color Yellow (Yellow) Urine Appearance Clear (Clear) Urine pH 5.0 (4.6-8.0) Ur Specific [place] >=1.030 A (1.005-1.030) Urine Protein Negative (Negative) Urine Glucose (UA) >=1000 A (Negative) mg/dL Urine Ketones Negative (Negative) Urine Blood Negative (Negative) Urine Nitrite Negative (Negative) Urine Bilirubin Negative (Negative) Urine Urobilinogen 0.2 (0.2) mg/dL Ur Leukocyte Esterase Negative (Negative) U Hyaline Cast (Auto) NONE SEEN (0-2) /LPF Urine Microscopic RBC 0-2 (0-5) /HPF Urine Microscopic WBC 0-2 (0-5) /HPF Ur Epithelial Cells None Seen (None Seen) /HPF Urine Bacteria None Seen (None Seen) /HPF Urine Culture Reflexed NO (NO) - Progress Progress: improved Progress Note: 09/19/22 18:41 57 years old is evaluated for elevated blood sugar because she ran out of her insulin earlier and she received steroid shots in hips bumping up our blood sugar requiring more insulin. Blood sugar was not 250s, given fluid, negative ketones, normal pH, not in HHS or DKA. Patient's blood sugar improved to 140s without any insulin. Patient does have long-acting insulin with her which she is advised to take once home tomorrow she will receive her regular insulin refil l. Discussed signs symptoms of worsening needing return to ER which she seems understanding. Stable for discharge. Counseled pt/family regarding: lab results, diagnosis, need for follow-up Medical Desision Making - Discussion of managment Agreed on:: Treatment plan, need for follow-up - Diagnostic Testing Diagnostic test were ordered, analyzed, and reviewed by me: Yes - Risk of complications The pt has a mod risk of morbidity or mortality based on: Need for prescription drug management - Departure Departure Disposition: Home Clinical Impression: Hyperglycemia Condition: Stable Critical Care Time: No Referrals: SUZIE YOUNG DO [Primary Care Provider] - Follow up with PCP 1 day Instructions: High Blood Sugar, Adult (DC) Additional Instructions: Keep yourself well-hydrated. Restart taking your regular insulin tomorrow. T kang low carb diet. Return to ER for any worsening.
[2022-09-19] MEDS ORDERED: Lantus Insulin SQ STA (18:35)
== END 2022-09-19 19:01 | disposition home or self-care (01) ==
LOC: ED 15:08
DX: E11.65 Type 2 diabetes mellitus with hyperglycemia (principal); Z79.899 Other long term (current) drug therapy; Z20.828 Contact with and (suspected) exposure to other viral communicable diseases
CPT/HCPCS: 36000; 36415; 80053; 81001; 82805; 82947; 85025; 99283

== ENCOUNTER 2022-10-20 07:08 | Day surgery (SDC) | payer OTHER ==
[2022-10-20] MEDS ORDERED: LIDOCAINE HCL 2% 100 MG/5 ML IJ ONE (07:09)
[2022-10-20] MEDS ORDERED: Depo-Medrol 40 MG/ML IM ONE (07:09)
[2022-10-20] MEDS ORDERED: DIPRIVAN 200 MG/20 ML IV ONE (08:55)
--- NOTE | 2022-10-20 10:05 | XRAY ---
Indication: Bilateral L4-S1 MBB. Intraoperative fluoroscopy provided for 11 seconds. Single digital spot image submitted for interpretation demonstrates posterior needle tips projecting over the expected left and right L4-S1 nerve roots. Correlate with intraoperative findings/report.
--- NOTE | 2022-10-20 10:07 | XRAY ---
11 seconds of fluoroscopy was used in surgery for a bilateral L4-S1 MBB.
[2022-10-20] MEDS ORDERED: Lactated Ringers 1,000 ML IV ONE (15:29)
== END 2022-10-20 09:20 | disposition home or self-care (01) ==
LOC: SDC-PAIN 07:08
PROVIDERS: ATTEND Psychiatry & Neurology Pain Medicine
DX: M47.816 Spondylosis without myelopathy or radiculopathy, lumbar region (principal); E11.9 Type 2 diabetes mellitus without complications; Z79.899 Other long term (current) drug therapy
CPT/HCPCS: 64493; 64494; 72020; 77002; 82947; J1030; J2704

== ENCOUNTER 2022-10-30 20:20 | Emergency (ER) | payer OTHER ==
[2022-10-30] MEDS ORDERED: Sodium Chloride 0.9% 1000 ML 1,000 ML IV STA (20:36)
[2022-10-30] MEDS ORDERED: Sodium Chloride 0.9% 1000 ML 1,000 ML ONE (20:39)
[2022-10-30 20:43] LABS: Absolute Neutrophil Ct (ANC) 7.54 x10^3/uL (1.4-6.9); BASOPHIL % 0.7 % (0.0-0.4); Basophil (Absolute #) 0.08 x10^3/uL (0-0.4); Eosinophil % 2.1 % (0.00-5.0); Eosinophil (Absolute #) 0.23 x10^3/uL (0-0.5); Hematocrit 50.6 % (35-47); Hemoglobin 16.3 g/dL (12.0-16.0); IMMATURE GRAN # 0.09 x10^3u/L (0.00-0.03); IMMATURE GRAN % 0.8 % (0.00-0.4); Lymphocyte (Absolute #) 2.47 x10^3/uL (1.0-4.6); Lymphocytes % 22.1 % (24.0-44.0); Mean Cell Volume 85.5 fL (78-100); Mean Corpuscular Hemoglobin 27.5 pg (26-32); Mean Corpuscular Hgb Concent. 32.2 g/dL (32-36); Mean Platelet Volume 11.5 fL (7.5-11.0); Monocyte (Absolute #) 0.77 x10^3/uL (0.0-1.3); Monocytes % 6.9 % (0.0-12.0); Neutrophil % 67.4 % (36.0-66.0); Platelet Count 248 x10^3/uL (150-450); Red Blood Count 5.92 x10^6/uL (4.1-5.4); Red Cell Distribution Width 13.7 % (11.5-14.0); White Blood Count 11.2 x10^3/uL (4.0-10.5)
--- NOTE | 2022-10-30 20:55 | ERPHSYRPT ---
- History of Present Illness Time Seen by Provider: 10/30/22 20:52 Source: patient Exam Limitations: no limitations Patient Subjective Stated Complaint: pt states "I feel dizzy and lightheaded. I don't know if my potassium is low or I'm having a anxiety attack." Triage Nursing Assessment: pt presents to [facility] via [facility], pt alert and oriented x3, pt c/o lightheadedness and dizziness that started today, pt walking from apt to ambulance station to be taken to ER. pt denies any pain currently, hx of DM, anxiety, depression Physician History: pt states "I feel dizzy and lightheaded. I don't know if my potassium is low or I'm having a anxiety attack." pt c/o lightheadedness and dizziness that started today, pt walking from apt to ambulance station to be taken to ER. pt denies any pain currently, hx of DM, anxiety, depression Patient states that since she started taking vyaler for her anxiety and depression she started having this problem at least for last 1 month. Timing/Duration: today Severity: mild Associated Symptoms: denies symptoms Allergies/Adverse Reactions: No Known Drug Allergies Allergy (Verified 10/30/22 20:23) Home Medications: Trazodone HCl 50 mg [Desyrel 50 mg] 100 mg PO DAILY 04/26/22 [History] Ertugliflozin Pidolate [Steglatro] 15 mg PO DAILY 06/18/22 [History] Insulin Lispro [Admelog Solostar] 115 units SQ DAILY 06/18/22 [History] Cariprazine HCl [Vraylar] 3 mg PO DAILY 09/19/22 [History] Omeprazole 40 mg PO DAILY 09/19/22 [History] Hx Tetanus, Diphtheria Vaccination/Date Given: Yes Hx Influenza Vaccination/Date Given: Yes Hx Pneumococcal Vaccination/Date Given: No Travel Risk - International Travel Have you traveled outside of the country in past 3 weeks: No - Coronavirus Screening Are you exhibiting any of the following symptoms?: No Close contact with a COVID-19 positive Pt in past 14-21 Days: No - Vaccine Status Have you recieved a Covid-19 vaccination: No - Review of Systems Constitutional: No Fever, No Chills Eyes: No Symptoms Ears, Nose, & Throat: No Symptoms Respiratory: No Cough, No Dyspnea Cardiac: No Chest Pain, No Edema, No Syncope Abdominal/Gastrointestinal: No Abdominal Pain, No Nausea, No Vomiting, No Diarrhea Genitourinary Symptoms: No Dysuria Musculoskeletal: No Back Pain, No Neck Pain Skin: No Rash Neurological: Dizziness, No Focal Weakness, No Sensory Changes Psychological: No Symptoms Endocrine: No Symptoms All Other Systems: Reviewed and Negative - Past Medical History Pertinent Past Medical History: Yes Neurological History: No Pertinent History ENT History: Glaucoma Cardiac History: No Pertinent History, Hypertension Respiratory History: COPD Endocrine Medical History: Diabetes Type II Musculoskeletal History: Arthritis GI Medical History: Cirrhosis, Pancreatitis Other Medical History: Cirrhosis of the liver, pancreatitis, COVID-19, R shoulder labrum repair (2010), achilles tendon repair (2009), , miscarriage, B hand tendonitis, neuropathy B hands, carpal tunnels (B), trigger fingers (B thumbs and ring fingers) - Past Surgical History Past Surgical History: Yes Cardiac: Cardiac Catheterization Genitourinary: Other Female Surgical History: Section, Other Other Surgical History: achilles tendon, kidney stone with stent (now removed), bladder sling - Social History Smoking Status: Former smoker Exposure to second hand smoke: Yes Drug Use: marijuana Patient Lives Alone: No Significant Family History: no pertinent family hx - Nursing Vital Signs Nursing Vital Signs: Initial Vital Signs Temperature 97.7 F 10/30/22 20:21 Pulse Rate 98 H 10/30/22 20:21 Respiratory Rate 18 10/30/22 20:21 Blood Pressure 141/90 10/30/22 20:21 O2 Sat by Pulse Oximetry 97 10/30/22 20:21 Pain Scale Pain Intensity 0 - Physical Exam General Appearance: no apparent distress, alert Eye Exam: PERRL/EOMI, eyes nml inspection Ears, Nose, Throat Exam: normal ENT inspection, TMs normal, pharynx normal, moist mucous membranes Neck Exam: normal inspection, non-tender, supple, full range of motion Respiratory Exam: normal breath sounds, lungs clear, No respiratory distress Cardiovascular Exam: regular rate/rhythm, normal heart sounds, normal peripheral pulses Gastrointestinal/Abdomen Exam: soft, normal bowel sounds, No tenderness, No mass Back Exam: normal inspection, normal range of motion, No CVA tenderness, No vertebral tenderness Extremity Exam: normal inspection, normal range of motion, pelvis stable Neurologic Exam: alert, oriented x 3, cooperative, normal mood/affect, nml cerebellar function, nml station & gait, sensation nml, No motor deficits Skin Exam: normal color, warm, dry, No rash Lymphatic Exam: No adenopathy SpO2: 97 - Course Nursing assessment & vital signs reviewed: Yes EKG Interpreted by Me: Non-specific ST Changes - Radiology Exams Chest X-ray Interpretation: Reviewed by me, Negative Ordered Tests: Active Orders 24 hr Category Date Time Status EKG-ER Only STAT Care 10/30/22 20:36 Active IV Insertion STAT Care 10/30/22 20:38 Active CHEST 1 VIEW (PORTABLE) Stat Exams 10/30/22 20:36 Taken CBC W DIFF Stat Lab 10/30/22 20:30 Completed CMP Stat Lab 10/30/22 20:30 Completed MAGNESIUM Stat Lab 10/30/22 20:30 Completed TROPONIN Stat Lab 10/30/22 21:50 Received UA W/RFX UR CULTURE Stat Lab 10/30/22 20:43 Completed Medication Summary Generic Name Dose Route Start Last Admin Trade Name Freq PRN Reason Stop Dose Admin Ceftriaxone Sodium/Dextrose 1 g in 50 mls @ 100 mls/hr 10/30/22 21:42 10/30/22 21:48 Rocephin 1 Gm-D5w 50 Ml Bag IV 10/30/22 22:11 100 mls/hr STAT STA 100 mls/hr Administration Discontinued Medications Generic Name Dose Route Start Last Admin Trade Name Freq PRN Reason Stop Dose Admin Sodium Chloride 1,000 mls @ 999 mls/hr 10/30/22 20:36 10/30/22 21:41 Sodium Chloride 0.9% 1000 Ml IV 10/30/22 21:36 Infused .Q1H1M STA Infusion Sodium Chloride Confirm 10/30/22 20:39 Sodium Chloride 0.9% 1000 Ml Administered 10/30/22 20:40 Dose 1,000 mls @ ud .ROUTE .STK-MED ONE Ceftriaxone Sodium/Dextrose Confirm 10/30/22 21:46 Rocephin 1 Gm-D5w 50 Ml Bag Administered 10/30/22 21:47 Dose 1 g in 50 mls @ ud IV .STK-MED ONE Lab/Rad Data: Laboratory Result Diagrams 10/30/22 20:30 10/30/22 20:30 Laboratory Results 10/30/22 10/30/22 10/30/22 Range/Units 20:43 20:30 20:30 WBC 11.2 H (4.0-10.5) x10^3/uL RBC 5.92 H (4.1-5.4) x10^6/uL Hgb 16.3 H (12.0-16.0) g/dL Hct 50.6 H (35-47) % MCV 85.5 (78-100) fL MCH 27.5 (26-32) pg MCHC 32.2 (32-36) g/dL RDW 13.7 (11.5-14.0) % Plt Count 248 (150-450) x10^3/uL MPV 11.5 H (7.5-11.0) fL Gran % 67.4 H (36.0-66.0) % Immature Gran % (Auto) 0.8 H (0.00-0.4) % Nucleat RBC Rel Count 0.0 (0.00-0.1) % Eos # (Auto) 0.23 (0-0.5) x10^3/uL Immature Gran # (Auto) 0.09 H (0.00-0.03) x10^3u/L Absolute Lymphs (auto) 2.47 (1.0-4.6) x10^3/uL Absolute Monos (auto) 0.77 (0.0-1.3) x10^3/uL Absolute Nucleated RBC 0.00 (0.00-0.01) x10^3u/L Lymphocytes % 22.1 L (24.0-44.0) % Monocytes % 6.9 (0.0-12.0) % Eosinophils % 2.1 (0.00-5.0) % Basophils % 0.7 (0.0-0.4) % Absolute Granulocytes 7.54 H (1.4-6.9) x10^3/uL Basophils # 0.08 (0-0.4) x10^3/uL Sodium 139 (137-145) mmol/L Potassium 4.2 (3.5-5.1) mmol/L Chloride 100 (98-107) mmol/L Carbon Dioxide 22 (22-30) mmol/L Anion Gap 21.2 H (5-15) MEQ/L BUN 15 (7-17) mg/dL Creatinine 0.85 (0.52-1.04) mg/dL Estimated GFR > 60.0 ML/MIN Glucose 247 H (74-106) mg/dL Calcium 9.2 (8.4-10.2) mg/dL Magnesium 2.0 (1.6-2.3) mg/dL Total Bilirubin 0.40 (0.2-1.3) mg/dL AST 30 (14-36) U/L ALT 41 H (0-35) U/L Alkaline Phosphatase 172 H (38-126) U/L Serum Total Protein 8.4 H (6.3-8.2) g/dL Albumin 4.6 (3.5-5.0) g/dL Urine Color Yellow (Yellow) Urine Appearance Clear (Clear) Urine pH 5.0 (4.6-8.0) Ur Specific [place] >=1.030 A (1.005-1.030) Urine Protein Negative (Negative) Urine Glucose (UA) >=1000 A (Negative) mg/dL Urine Ketones Negative (Negative) Urine Blood Negative (Negative) Urine Nitrite Negative (Negative) Urine Bilirubin Negative (Negative) Urine Urobilinogen 0.2 (0.2) mg/dL Ur Leukocyte Esterase Negative (Negative) U Hyaline Cast (Auto) NONE SEEN (0-2) /LPF Urine Microscopic RBC 0-2 (0-5) /HPF Urine Microscopic WBC 6-10 A (0-5) /HPF Ur Epithelial Cells None Seen (None Seen) /HPF Urine Bacteria None Seen (None Seen) /HPF Urine Culture Reflexed NO (NO) - Progress Progress: improved Counseled pt/family regarding: lab results, diagnosis, need for follow-up, rad results - Departure Departure Disposition: Home Clinical Impression: Anxiety, Dizziness UTI (urinary tract infection) Qualifiers: Urinary tract infection type: site unspecified Hematuria presence: without hematuria Qualified Code(s): N39.0 - Urinary tract infection, site not specified Uncontrolled diabetes mellitus Qualifiers: Diabetes mellitus type: type 2 Glycemic state: with hyperglycemia Qualified Code(s): E11.65 - Type 2 diabetes mellitus with hyperglycemia Condition: Stable Critical Care Time: Yes Critical Care Time(excluding separately billable procedures): Critical 30-74 mins Referrals: SUZIE YOUNG DO [Primary Care Provider] - Follow Up with PCP/3 days Instructions: Dizziness, Nonvertigo, (DC) Additional Instructions: Please stop your Vyalar. Finish your antibiotic as prescribed for 5 days for your urinary tract infection. Follow-up with your primary care physician in next 2 to 3 days. Discharge/Care Plan SWEETIE ORNELAS was seen on 10/30/22 in the Emergency Room. The patient was counseled regarding Diagnosis,Lab results, Imaging studies, need for follow up and when to return to the Emergency Room. Prescriptions given: Discharge Note I have spoken with the patient and/or caregivers. I have explained the patient's condition, diagnosis and treatment plan based on the information available to me at this time. I have answered the patient's and/or caregiver's questions and addressed any concerns. The patient and/or caregivers have as good understanding of the patient's diagnosis, condition and treatment plan as can be expected at this point. The vital signs have been stable. The patient's condition is stable and appropriate for discharge from the emergency department. The patient will pursue further outpatient evaluation with the primary care rafi joseph or other designated or consulting physician as outlined in the discharge instructions. The patient and/or caregivers are agreeable to this plan of care and follow-up instructions have been explained in detail. The patient and/or caregivers have received these instruction. The patient/and or caregivers are aware that any significant change in condition or worsening of symptoms should prompt an immediate return to this or the closest emergency department or call 911. SWEETIE ORNELAS was seen on 10/30/22 n the Emergency Room. At that time you were treated for an emergent condition, during your visit Laboratory, Radiology and/or other procedures may have been ordered. It is very important that you follow-up with your Primary Care Physician SUZIE YOUNG DO within the next 24-48 hours to review your Emergency Room visit and the final results of testing that was ordered. Some test results such as Urine Cultures, Blood Cultures, and other cultures if ordered will not be finalized for 24-48 hours. If you do not have a Primary Care Provider please call the medical records department at [phone] ext [phone] to obtain a copy of your results or you may sign into our patient portal to obtain these results by visiting us @ [email or web address] and completing the following steps: 1. Click on the Patient Portal link 2. Click the Patient Self Enrollment Link to complete the enrollment form and entering your 3. Once the enrollment form is completed you will receive an email with a temporary ID and password at the email address you provided. 4. Next choose a user name and password. Your user name must be at least 4 characters long and your password must be at least 4 characters long. 5. Choose a security question from the list and provide your answer to the qu estion. If you already have signed into the Health Portal you may access your Health C are Information 29/11 by the following steps: 1. Login to our website @ [email or web address] 2. Enter your original user name and password. FAQS The [facility] Health Portal is an online tool that contains your Lab Results, Radiology Reports, Visit History, Discharge Instructions and Health Summary Lab and Radiology Results will not be available for 72 hours on the portal. The Portal is a secure site, passwords are encryted and URLs are re-written so they cannot be copied and pasted. You and authorized family members are the only ones who can access your Portal. Also there is a timeout feature that protects your information if you leave the Portal page open. If you have technical difficulty please use the Contact Us link on the page this will allow you to submit any questions you have regarding the Portal or you may contact the Medical Record Department at [phone] ext [phone]. Prescriptions: Smz/Tmp Ds Tablet [Bactrim Ds Tablet] 1 udtab PO BID #14 tablet
[2022-10-30 20:58] LABS: ALBUMIN 4.6 g/dL (3.5-5.0); ALKALINE PHOSPHATASE 172 U/L (38-126); ANION GAP 21.2 MEQ/L (5-15); BLOOD UREA NITROGEN 15 mg/dL (7-17); CHLORIDE 100 mmol/L (98-107); Calcium 9.2 mg/dL (8.4-10.2); Carbon Dioxide 22 mmol/L (22-30); Creatinine 1 0.85 mg/dL (0.52-1.04); EST GLOMERULAR FILTRATION RATE > 60.0 ML/MIN; Glucose 247 mg/dL (74-106); Potassium 4.2 mmol/L (3.5-5.1); SGOT/AST 30 U/L (14-36); SGPT/ALT 41 U/L (0-35); SODIUM 139 mmol/L (137-145); Total Protein 8.4 g/dL (6.3-8.2)
[2022-10-30 21:09] LABS: Appearance Clear (Clear); Bacteria None Seen /HPF (None Seen); Bilirubin Negative (Negative); Blood Negative (Negative); Epithelial Cells None Seen /HPF (None Seen); Glucose, Urine >=1000 mg/dL (Negative); Hyaline Casts NONE SEEN /LPF (0-2); Ketones Negative (Negative); Leukocyte Esterase Negative (Negative); Nitrite Negative (Negative); Protein,Urine Dip Negative (Negative); RBC 0-2 /HPF (0-5); Specific Gravity >=1.030 (1.005-1.030); Urobilinogen 0.2 mg/dL (0.2)
[2022-10-30 21:32] LABS: ADD URINE CULTURE? NO (NO)
[2022-10-30] MEDS ORDERED: ROCEPHIN 1 Gm-D5w 50 ml Bag** 1 G/50 ML IVPB IV STA (21:42)
[2022-10-30 21:45] VITALS: O2SAT 97
[2022-10-30] MEDS ORDERED: ROCEPHIN 1 Gm-D5w 50 ml Bag** 1 G/50 ML IVPB IV ONE (21:46)
[2022-10-30 22:11] VITALS: BP 103/63; PULSE 87
--- NOTE | 2022-10-31 07:59 | XRAY ---
Indication: Short of breath. Dizziness. COPD. Comparison: January 15, 2022 Portable chest remains inflated and clear. Heart not enlarged for AP portable technique. Bony thorax intact with mild degenerative changes. Impression: Continued nonacute chest.
== END 2022-10-30 22:23 | disposition home or self-care (01) ==
LOC: ED 20:20
DX: N39.0 Urinary tract infection, site not specified (principal); F41.9 Anxiety disorder, unspecified; E11.65 Type 2 diabetes mellitus with hyperglycemia; R42 Dizziness and giddiness; I10 Essential (primary) hypertension; Z79.4 Long term (current) use of insulin; Z79.899 Other long term (current) drug therapy; Z28.310 Unvaccinated for COVID-19; Z86.16 Personal history of COVID-19
CPT/HCPCS: 36000; 36415; 71045; 80053; 81001; 83735; 84484; 85025; 93005; 96360; 96365; 99284; 99291; J0696

== ENCOUNTER 2022-11-03 20:43 | Emergency (ER) | payer OTHER ==
[2022-11-03 21:04] VITALS: O2SAT 95
--- NOTE | 2022-11-03 21:33 | ERPHSYRPT ---
- History of Present Illness Time Seen by Provider: 11/03/22 21:27 Source: patient Exam Limitations: no limitations Patient Subjective Stated Complaint: pt states "My is away at work during the night. I hate being by myself. I get super anxious. I haven't been sleeping but 2 hrs the past week." Triage Nursing Assessment: pt ambulatory to bed by self, pt alert and oriented x3, skin pwd, pt here for anxiety, denies chest pain, sob, or any pain. pt states "I just want a xanax so I can sleep all night." Physician History: Patient is a 57-year-old female presents to our ED for your treatment of anxiety. Patient was in our ED for the same just 4 days ago.. Patient received a full work-up including D-dimer for PE. D-dimer negative at that time. Patient states her anxiety occurs after her leaves home from work. Patient believes she needs to be started on Xanax. No associated chest pain. No shortness of breath. No nausea vomiting or diaphoresis. Symptoms are mild to moderate in intensity. No specific worsening or improving factors. No change in her symptomology from patient's last visit. Patient states at that time she was also diagnosed with a UTI. She is currently on Bactrim. Patient voices no other complaints or concerns at this time. Portions of this note were created with voice recognition technology. There may be grammatical, spelling, punctuation or sound alike errors Timing/Duration: today Severity: moderate Modifying Factors: Improves With: nothing Associated Symptoms: denies symptoms Allergies/Adverse Reactions: No Known Drug Allergies Allergy (Verified 11/03/22 20:59) Home Medications: Trazodone HCl 50 mg [Desyrel 50 mg] 100 mg PO DAILY 04/26/22 [History] Ertugliflozin Pidolate [Steglatro] 15 mg PO DAILY 06/18/22 [History] Insulin Lispro [Admelog Solostar] 115 units SQ DAILY 06/18/22 [History] Cariprazine HCl [Vraylar] 3 mg PO DAILY 09/19/22 [History] Omeprazole 40 mg PO DAILY 09/19/22 [History] Hx Tetanus, Diphtheria Vaccination/Date Given: Yes Hx Influenza Vaccination/Date Given: Yes Hx Pneumococcal Vaccination/Date Given: No Travel Risk - International Travel Have you traveled outside of the country in past 3 weeks: No - Coronavirus Screening Are you exhibiting any of the following symptoms?: No Close contact with a COVID-19 positive Pt in past 14-21 Days: No - Vaccine Status Have you recieved a Covid-19 vaccination: No - Review of Systems Constitutional: No Symptoms, No Fever, No Chills Eyes: No Symptoms Ears, Nose, & Throat: No Symptoms Respiratory: No Symptoms, No Cough, No Dyspnea Cardiac: No Symptoms, No Chest Pain, No Edema, No Syncope Abdominal/Gastrointestinal: No Symptoms, No Abdominal Pain, No Nausea, No Vomiting, No Diarrhea Genitourinary Symptoms: No Symptoms, No Dysuria Musculoskeletal: No Symptoms, No Back Pain, No Neck Pain Skin: No Symptoms, No Rash Neurological: No Symptoms, No Dizziness, No Focal Weakness, No Sensory Changes Psychological: No Symptoms Endocrine: No Symptoms Hematologic/Lymphatic: No Symptoms Immunological/Allergic: No Symptoms All Other Systems: Reviewed and Negative - Past Medical History Pertinent Past Medical History: Yes Neurological History: No Pertinent History ENT History: Glaucoma Cardiac History: No Pertinent History, Hypertension Respiratory History: COPD Endocrine Medical History: Diabetes Type II Musculoskeletal History: Arthritis GI Medical History: Cirrhosis, Pancreatitis Psycho-Social History: Anxiety Other Medical History: Cirrhosis of the liver, pancreatitis, COVID-19, R shoulder labrum repair (2010), achilles tendon repair (2009), , miscarriage, B hand tendonitis, neuropathy B hands, carpal tunnels (B), trigger fingers (B thumbs and ring fingers) - Past Surgical History Past Surgical History: Yes Cardiac: Cardiac Catheterization Genitourinary: Other Female Surgical History: Section, Other Other Surgical History: achilles tendon, kidney stone with stent (now removed), bladder sling - Social History Smoking Status: Former smoker Exposure to second hand smoke: Yes Drug Use: marijuana Patient Lives Alone: No Significant Family History: no pertinent family hx - Nursing Vital Signs Nursing Vital Signs: Initial Vital Signs Pulse Rate 90 11/03/22 21:03 Respiratory Rate 18 11/03/22 21:03 Blood Pressure 152/82 11/03/22 21:03 O2 Sat by Pulse Oximetry 95 11/03/22 21:03 Pain Scale Pain Intensity 0 - Physical Exam General Appearance: no apparent distress, alert Eye Exam: PERRL/EOMI, eyes nml inspection Ears, Nose, Throat Exam: normal ENT inspection, TMs normal, pharynx normal, moist mucous membranes Neck Exam: normal inspection, non-tender, supple, full range of motion Respiratory Exam: normal breath sounds, lungs clear, airway intact, No respiratory distress Cardiovascular Exam: regular rate/rhythm, normal heart sounds, normal peripheral pulses Gastrointestinal/Abdomen Exam: soft, normal bowel sounds, No tenderness, No mass Back Exam: normal inspection, normal range of motion, No CVA tenderness, No vertebral tenderness Extremity Exam: normal inspection, normal range of motion, pelvis stable Neurologic Exam: alert, oriented x 3, cooperative, normal mood/affect, nml cerebellar function, nml station & gait, sensation nml, No motor deficits Skin Exam: normal color, warm, dry, No rash Lymphatic Exam: No adenopathy SpO2 Interpretation: normal SpO2: 95 O2 Delivery: Room Air - Course Nursing assessment & vital signs reviewed: Yes EKG Interpreted by Me: RATE (73), Sinus Rhythm, Left Schriever Deviation, NORMAL INTERVALS Ordered Tests: Medication Summary Generic Name Dose Route Start Last Admin Trade Name Corbinq PRN Reason Stop Dose Admin Alprazolam 0.5 mg 11/03/22 22:33 Alprazolam 0.5 Mg Tablet PO 11/03/22 22:34 STAT ONE - Progress Progress: improved Progress Note: Patient is a 57-year-old female presents to our ED for evaluation of anxiety. Patient states that she has been experiencing anxiety episodes at home. Patient attributes her symptoms to stress at home. Patient states her significant other is not contributing to home chores. Patient states that it feels as though her stress is mounting. Patient requesting a Xanax. No associated chest pain. No shortness of breath. No nausea vomiting or diaphoresis. Patient otherwise asymptomatic. Patient was here this past Tuesday for the same symptoms. She had a work-up that was essentially nonremarkable. No indication for repeating the work-up. Patient's symptoms are the exact same as her previous. We performed an EKG in our ED. EKG was normal sinus rhythm. No ischemic changes. Vital stable. Half milligram tab of Xanax was provided to patient. We split the tab in half. Patient will take 0.25 at home as needed for anxiety. Patient agrees to follow-up with her primary care doctor within 48 hours for reevaluation. She voices no other complaints. Patient requesting discharge. Patient states she will call for a ride. Portions of this note were created with voice recognition technology. There may be grammatical, spelling, punctuation or sound alike errors Complexity of problem addressed is low acute uncomplicated No critical care time Complexity of data reviewed is moderate. Dr. Amin ordered and independently evaluated EKG. No emergent concerning findings observed. Risk of complication and or risk morbidity/mortality patient management is moderate. Patient received Xanax in our ED. Patient will take the pills home to administer for anxiety as needed. We ordered a dose of 0.5 mg. The Xanax was cut in half. Patient will administer 0.25 mg at night then another dose as needed. We will discharge patient home. Patient agrees to follow-up with her primary care doctor within 48 hours. Vital stable. Discharge diagnosis is anxiety. Plan of care established for shared decision making. No social determinants of health present to impede follow-up. Patient voices no other complaints or concerns at this time. Portions of this note were created with voice recognition technology. There may be grammatical, spelling, punctuation or sound alike errors 11/03/22 22:35 Counseled pt/family regarding: diagnosis, need for follow-up - Departure Departure Disposition: Home Clinical Impression: Anxiety Condition: Stable Critical Care Time: No Referrals: SUZIE YOUNG, [Primary Care Provider] - Follow up/PCP as directed Additional Instructions: Discharge/Care Plan SWEETIE ORNELAS was seen on 11/03/22 in the Emergency Room. The patient was counseled regarding Diagnosis,Lab results, Imaging studies, need for follow up and when to return to the Emergency Room. Prescriptions given: Discharge Note I have spoken with the patient and/or caregivers. I have explained the patient's condition, diagnosis and treatment plan based on the information available to me at this time. I have answered the patient's and/or caregiver's questions and addressed any concerns. The patient and/or caregivers have as good understanding of the patient's diagnosis, condition and treatment plan as can be expected at this point. The vital signs have been stable. The patient's condition is stable and appropriate for discharge from the emergency department. The patient will pursue further outpatient evaluation with the primary care physician or other designated or consulting physician as outlined in the discharge instructions. The patient and/or caregivers are agreeable to this plan of care and follow-up instructions have been explained in detail. The patient and/or caregivers have received these instruction. The patient/and or caregivers are aware that any significant change in condition or worsening of symptoms should prompt an immediate return to this or the closest emergency department or call 911.
[2022-11-03] MEDS ORDERED: xanAX 0.5 MG PO ONE (22:33)
[2022-11-03] MEDS ORDERED: xanAX 0.5 MG ONE (22:35)
[2022-11-03 22:50] VITALS: BP 123/72; PULSE 84
== END 2022-11-03 22:50 | disposition home or self-care (01) ==
LOC: ED 20:43
DX: F41.9 Anxiety disorder, unspecified (principal); Z63.0 Problems in relationship with spouse or partner; I10 Essential (primary) hypertension; E11.9 Type 2 diabetes mellitus without complications; Z79.4 Long term (current) use of insulin; Z79.899 Other long term (current) drug therapy; Z28.310 Unvaccinated for COVID-19; Z86.16 Personal history of COVID-19
CPT/HCPCS: 93005; 99283; A9270-GY

== ENCOUNTER 2022-12-08 07:01 | Day surgery (SDC) | payer OTHER ==
[2022-12-08] MEDS ORDERED: Depo-Medrol 40 MG/ML IM ONE (07:02)
[2022-12-08] MEDS ORDERED: BUPIVACAINE 0.5% VIAL IJ ONE (07:02)
[2022-12-08] MEDS ORDERED: DIPRIVAN 200 MG/20 ML IV ONE ×2 (08:26→08:35)
[2022-12-08] MEDS ORDERED: Lactated Ringers 1,000 ML IV ONE (08:51)
--- NOTE | 2022-12-08 10:15 | XRAY ---
Indication: Bilateral L4-S1 MBB. Intraoperative fluoroscopy provided for 18 seconds. Single digital spot image submitted for interpretation demonstrates posterior needle tips projecting over the expected left and right L4-S1 nerve roots. Correlate with intraoperative findings/report.
--- NOTE | 2022-12-08 10:41 | XRAY ---
18 seconds of fluoroscopy was used in surgery for a bilateral L4-S1 MBB.
== END 2022-12-08 08:57 | disposition home or self-care (01) ==
LOC: SDC-PAIN 07:01
PROVIDERS: ATTEND Psychiatry & Neurology Pain Medicine
DX: M47.816 Spondylosis without myelopathy or radiculopathy, lumbar region (principal); E11.9 Type 2 diabetes mellitus without complications; Z79.899 Other long term (current) drug therapy
CPT/HCPCS: 64493; 64494; 72020; 77002; 82947; J1030; J2704

== ENCOUNTER 2023-03-16 07:00 | Day surgery (SDC) | payer OTHER ==
[2023-03-16] MEDS ORDERED: Depo-Medrol 40 MG/ML IM ONE (07:01)
[2023-03-16] MEDS ORDERED: BUPIVACAINE 0.5% VIAL IJ ONE (07:01)
[2023-03-16] MEDS ORDERED: DIPRIVAN 200 MG/20 ML IV ONE (09:33)
[2023-03-16] MEDS ORDERED: Lactated Ringers 1,000 ML IV ONE (10:33)
--- NOTE | 2023-03-16 11:50 | XRAY ---
Indication: Right hip injection. Intraoperative fluoroscopy provided for 11 seconds. Single digital spot image submitted for interpretation demonstrates needle tip projecting lateral to right femur neck. Small amount of contrast injected for needle tip placement. Correlate with intraoperative findings/report.
--- NOTE | 2023-03-16 11:52 | XRAY ---
11 seconds of fluoroscopy was used in surgery for a right intra-articular hip injection.
== END 2023-03-16 09:57 | disposition home or self-care (01) ==
LOC: SDC-PAIN 07:00
PROVIDERS: ATTEND Psychiatry & Neurology Pain Medicine
DX: M16.11 Unilateral primary osteoarthritis, right hip (principal); E11.9 Type 2 diabetes mellitus without complications; Z79.899 Other long term (current) drug therapy
CPT/HCPCS: 20610; 73501; 77002; 82947; J1030; J2704; Q9966

== ENCOUNTER 2023-03-27 19:32 | Emergency (ER) | payer OTHER ==
[2023-03-27 20:13] VITALS: TEMP 99.1
[2023-03-27 20:46] LABS: BASOPHIL % 0.3 % (0.0-0.4); Basophil (Absolute #) 0.06 x10^3/uL (0-0.4); Eosinophil % 0.2 % (0.00-5.0); Eosinophil (Absolute #) 0.04 x10^3/uL (0-0.5); Hematocrit 49.1 % (35-47); IMMATURE GRAN # 0.08 x10^3u/L (0.00-0.03); IMMATURE GRAN % 0.5 % (0.00-0.4); Lymphocyte (Absolute #) 2.75 x10^3/uL (1.0-4.6); Lymphocytes % 15.6 % (24.0-44.0); Mean Cell Volume 86.6 fL (78-100); Mean Corpuscular Hemoglobin 28.2 pg (26-32); Mean Corpuscular Hgb Concent. 32.6 g/dL (32-36); Mean Platelet Volume 11.1 fL (7.5-11.0); Monocyte (Absolute #) 1.12 x10^3/uL (0.0-1.3); Monocytes % 6.3 % (0.0-12.0); Neutrophil % 77.1 % (36.0-66.0); Platelet Count 262 x10^3/uL (150-450); Red Blood Count 5.67 x10^6/uL (4.1-5.4); Red Cell Distribution Width 12.8 % (11.5-14.0); White Blood Count 17.7 x10^3/uL (4.0-10.5)
[2023-03-27 20:53] LABS: Appearance Clear (Clear); Bacteria None Seen /HPF (None Seen); Bilirubin Negative (Negative); Blood Trace (Negative); Epithelial Cells None Seen /HPF (None Seen); Glucose, Urine >=1000 mg/dL (Negative); Hyaline Casts NONE SEEN /LPF (0-2); Ketones Trace (Negative); Leukocyte Esterase Negative (Negative); Nitrite Negative (Negative); Ph 5.5 (4.6-8.0); Protein,Urine Dip Trace (Negative); RBC 0-2 /HPF (0-5); Specific Gravity 1.025 (1.005-1.030)
[2023-03-27 20:54] LABS: ADD URINE CULTURE? NO (NO); WBC 0-2 /HPF (0-5)
[2023-03-27 20:57] LABS: ALBUMIN 4.7 g/dL (3.5-5.0); ANION GAP 18.7 MEQ/L (5-15); Calcium 9.4 mg/dL (8.4-10.2); Creatinine 1 0.88 mg/dL (0.52-1.04); EST GLOMERULAR FILTRATION RATE 76.1 ML/MIN; Potassium 4.1 mmol/L (3.5-5.1); Total Protein 8.4 g/dL (6.3-8.2)
[2023-03-27] MEDS ORDERED: Sodium Chloride 0.9% 1000 ML 1,000 ML ONE (21:50)
[2023-03-27] MEDS: Sodium Chloride 0.9% 1000 ML 1,000 ML IV STA (21:52)
[2023-03-27] MEDS ORDERED: TORAdol 30 mg Injection ONE (22:08)
--- NOTE | 2023-03-27 22:08 | ERPHSYRPT ---
- History of Present Illness Time Seen by Provider: 03/27/23 19:44 Historian: patient Exam Limitations: no limitations Patient Subjective Stated Complaint: pt states "my stomach has been hurting off and on and last night I threw up about 6 times. They just increased my ozempic recently so I don't know if it's from that. I think I have a kidney infection too but cause my urine is dark." Triage Nursing Assessment: pt ambulatory to bed by self with steady gait, pt alert and oriented x3, skin pwd, pt c/o bilateral lower abd pain intermittent x2 weeks, pt c/o back pain, pt hx of chronic back pain and just recently got injections in her back. pt states she vomited 6 times yesterday but none today. her Ozempic dose was just increased per pt. pt afebrile. Physician History: 57 years old female with history of diabetes mellitus on Ozempic, chronic back pain presented in the ER with chief complaint of bilateral flank pain and lower abdominal pain off and on for almost 1 week and got worse last night with multiple episodes of nonprojectile, nonbilious vomiting without hematemesis. Patient reports dull aching pain without any significant aggravating or relieving factors. Patient reports feels weak fatigued tired and dehydrated. Also reports some burning urination. No fever or chills reported. Allergies/Adverse Reactions: No Known Drug Allergies Allergy (Verified 03/27/23 20:09) Home Medications: Insulin Lispro [Admelog Solostar] 115 units SQ DAILY 06/18/22 [History] Omeprazole 40 mg PO DAILY 09/19/22 [History] Dapagliflozin Propanediol [Farxiga] 10 mg PO DAILY 03/27/23 [History] Hx Tetanus, Diphtheria Vaccination/Date Given: Yes Hx Influenza Vaccination/Date Given: Yes Hx Pneumococcal Vaccination/Date Given: No Immunizations Up to Date: Yes Travel Risk - International Travel Have you traveled outside of the country in past 3 weeks: No - Coronavirus Screening Are you exhibiting any of the following symptoms?: No Close contact with a COVID-19 positive Pt in past 14-21 Days: No - Vaccine Status Have you recieved a Covid-19 vaccination: No - Review of Systems Constitutional: Fatigue, Weakness Eyes: No Symptoms Ears, Nose, & Throat: No Symptoms Respiratory: No Symptoms Cardiac: No Symptoms Abdominal/Gastrointestinal: Abdominal Pain, Nausea, Vomiting, Constipation Genitourinary Symptoms: Frequency Musculoskeletal: Back Pain Skin: No Symptoms Neurological: No Symptoms Endocrine: No Symptoms Hematologic/Lymphatic: No Symptoms Immunological/Allergic: No Symptoms - Past Medical History Pertinent Past Medical History: Yes Neurological History: No Pertinent History ENT History: Glaucoma Cardiac History: Hypertension Respiratory History: COPD Endocrine Medical History: Diabetes Type II Musculoskeletal History: Arthritis GI Medical History: Pancreatitis Psycho-Social History: Anxiety Other Medical History: fibrosis of the liver, per patient pancreatitis, COVID- 19, R shoulder labrum repair (2010), achilles tendon repair (2009), , miscarriage, B hand tendonitis, neuropathy B hands, carpal tunnels (B), trigger fingers (B thumbs and ring fingers) - Past Surgical History Past Surgical History: Yes Cardiac: Cardiac Catheterization Genitourinary: Other Female Surgical History: Section, Other Other Surgical History: achilles tendon, kidney stone with stent (now removed), bladder sling - Social History Smoking Status: Former smoker Exposure to second hand smoke: Yes Drug Use: marijuana Patient Lives Alone: No Significant Family History: no pertinent family hx - Nursing Vital Signs Nursing Vital Signs: Initial Vital Signs Temperature 99.1 F 03/27/23 20:12 Pulse Rate 120 H 03/27/23 20:12 Respiratory Rate 17 03/27/23 20:12 Blood Pressure 147/113 03/27/23 20:12 O2 Sat by Pulse Oximetry 95 03/27/23 20:12 Pain Scale Pain Intensity 5 - Physical Exam General Appearance: no apparent distress, alert Eye Exam: PERRL/EOMI Ears, Nose, Throat Exam: normal ENT inspection Neck Exam: normal inspection, non-tender, supple, full range of motion Respiratory Exam: normal breath sounds, lungs clear Cardiovascular Exam: normal heart sounds, tachycardia Gastrointestinal/Abdomen Exam: soft, normal bowel sounds, tenderness (Lower abdomen. Bilateral flank. Positive CVA tenderness bilaterally.) Back Exam: normal inspection, normal range of motion, CVA tenderness, No vertebral tenderness Extremity Exam: normal inspection, normal range of motion Neurologic Exam: alert, oriented x 3, cooperative Skin Exam: normal color SpO2 Interpretation: normal SpO2: 98 O2 Delivery: Room Air Ordered Tests: Active Orders 24 hr Category Date Time Status IV Insertion STAT Care 03/27/23 20:25 Active NPO (ED) STAT Care 03/27/23 20:25 Active ABDOMEN AND PELVIS W CONTRAST [CT] Stat Exams 03/27/23 20:25 Completed CBC W DIFF Stat Lab 03/27/23 20:34 Completed CMP Stat Lab 03/27/23 20:34 Completed LIPASE Stat Lab 03/27/23 20:34 Completed UA W/RFX UR CULTURE Stat Lab 03/27/23 20:34 Completed Medication Summary Discontinued Medications Generic Name Dose Route Start Last Admin Trade Name Truong PRN Reason Stop Dose Admin Sodium Chloride 1,000 mls @ 999 mls/hr 03/27/23 21:36 03/27/23 22:56 Sodium Chloride 0.9% 1000 Ml IV 03/27/23 22:36 Infused .Q1H1M STA Infusion Sodium Chloride Confirm 03/27/23 21:50 Sodium Chloride 0.9% 1000 Ml Administered 03/27/23 21:51 Dose 1,000 mls @ ud .ROUTE .STK-MED ONE Ketorolac Tromethamine 15 mg 03/27/23 22:06 03/27/23 22:26 Ketorolac Tromethamine 30 Mg/Ml Inj IV 03/27/23 22:07 15 mg STAT ONE Administration Ketorolac Tromethamine Confirm 03/27/23 22:08 Ketorolac Tromethamine 30 Mg/Ml Inj Administered 03/27/23 22:09 Dose 30 mg .ROUTE .STK-MED ONE Levofloxacin 500 mg 03/27/23 23:55 Levofloxacin 500 Mg Tablet PO 03/27/23 23:56 STAT ONE Metronidazole 500 mg 03/27/23 23:55 Metronidazole 500 Mg Tablet PO 03/27/23 23:56 STAT ONE Lab/Rad Data: Laboratory Result Diagrams 03/27/23 20:34 03/27/23 20:34 Laboratory Results 03/27/23 03/27/23 03/27/23 Range/Units 20:34 20:34 20:34 WBC 17.7 H (4.0-10.5) x10^3/uL RBC 5.67 H (4.1-5.4) x10^6/uL Hgb 16.0 (12.0-16.0) g/dL Hct 49.1 H (35-47) % MCV 86.6 (78-100) fL MCH 28.2 (26-32) pg MCHC 32.6 (32-36) g/dL RDW 12.8 (11.5-14.0) % Plt Count 262 (150-450) x10^3/uL MPV 11.1 H (7.5-11.0) fL Gran % 77.1 H (36.0-66.0) % Immature Gran % (Auto) 0.5 H (0.00-0.4) % Nucleat RBC Rel Count 0.0 (0.00-0.1) % Eos # (Auto) 0.04 (0-0.5) x10^3/uL Immature Gran # (Auto) 0.08 H (0.00-0.03) x10^3u/L Absolute Lymphs (auto) 2.75 (1.0-4.6) x10^3/uL Absolute Monos (auto) 1.12 (0.0-1.3) x10^3/uL Absolute Nucleated RBC 0.00 (0.00-0.01) x10^3u/L Lymphocytes % 15.6 L (24.0-44.0) % Monocytes % 6.3 (0.0-12.0) % Eosinophils % 0.2 (0.00-5.0) % Basophils % 0.3 (0.0-0.4) % Absolute Granulocytes 13.60 H (1.4-6.9) x10^3/uL Basophils # 0.06 (0-0.4) x10^3/uL Sodium 134 L (137-145) mmol/L Potassium 4.1 (3.5-5.1) mmol/L Chloride 96 L (98-107) mmol/L Carbon Dioxide 24 (22-30) mmol/L Anion Gap 18.7 H (5-15) MEQ/L BUN 12 (7-17) mg/dL Creatinine 0.88 (0.52-1.04) mg/dL Estimated GFR 76.1 ML/MIN Glucose 147 H (74-106) mg/dL Calcium 9.4 (8.4-10.2) mg/dL Total Bilirubin 1.00 (0.2-1.3) mg/dL AST 30 (14-36) U/L ALT 40 H (0-35) U/L Alkaline Phosphatase 75 (38-126) U/L Serum Total Protein 8.4 H (6.3-8.2) g/dL Albumin 4.7 (3.5-5.0) g/dL Lipase 88 (23-300) U/L Urine Color Yellow (Yellow) Urine Appearance Clear (Clear) Urine pH 5.5 (4.6-8.0) Ur Specific [place] 1.025 (1.005-1.030) Urine Protein Trace A (Negative) Urine Glucose (UA) >=1000 A (Negative) mg/dL Urine Ketones Trace A (Negative) Urine Blood Trace (Negative) Urine Nitrite Negative (Negative) Urine Bilirubin Negative (Negative) Urine Urobilinogen 1.0 A (0.2) mg/dL Ur Leukocyte Esterase Negative (Negative) U Hyaline Cast (Auto) NONE SEEN (0-2) /LPF Urine Microscopic RBC 0-2 (0-5) /HPF Urine Microscopic WBC 0-2 (0-5) /HPF Ur Epithelial Cells None Seen (None Seen) /HPF Urine Bacteria None Seen (None Seen) /HPF Urine Culture Reflexed NO (NO) - Progress Progress: improved, re-examined Progress Note: 03/27/23 23:56 57 years old is evaluated for bilateral flank pain and lower abdominal pain for almost 1 week with progressive worsening with associated nausea and vomiting. Patient does have some element of constipation. She is given fluids and symptomatic treatment, on reevaluation she is feeling much better. Work-up showed white count of 17, chemistries elevated gap with normal bicarb and glucose in 140s. I do not think patient is in DKA. This [place] for dehydration secondary to vomiting. CT abdomen pelvis showed descending colitis and does have some element of fecal stasis. I have offered her observation admission with IV antibiotics and fluids but she does not want to stay in the hospital. She is afebrile. Abdominal exam is soft with minimal tenderness on repeated evaluation. I have started on Flagyl and Levaquin. Recommended daily MiraLAX and stool softener and outpatient follow-up. Discussed signs symptoms of worsening needing return to ER which she seems understanding. Stable for discharge. Counseled pt/family regarding: lab results, diagnosis, need for follow-up, rad results, smoking cessation Medical Desision Making - Diagnostic Testing Diagnostic test were ordered, analyzed, and reviewed by me: Yes Radiological Interpretation: Reviewed by me, Teleradiologist Report - Risk of complications The pt has a mod risk of morbidity or mortality based on: Need for prescription drug management - Departure Departure Disposition: Home Clinical Impression: Colitis, Constipation Condition: Stable Critical Care Time: No Referrals: ARANZA GERBER DO [Primary Care Provider] - Follow up/PCP as directed Instructions: Colitis, Constipation, Adult (DC) Additional Instructions: Take Tylenol/ibuprofen as needed for pain. Take daily MiraLAX and stool softener. Follow-up with primary care for reevaluation in 1 to 2 days. Return to ER for intractable abdominal pain/fever chills etc. Prescriptions: Metronidazole 500 mg [Flagyl 500 MG] 500 mg PO TID #21 tablet Levofloxacin [Levaquin 500 MG Tablet] 500 mg PO DAILY #7 tablet Polyethylene Glycol 3350 17 gm [Miralax Powder 17GM PACKET] 17 gm PO DAILY #30 packet
[2023-03-27] MEDS: TORAdol 30 mg Injection IV ONE (22:26)
[2023-03-27 23:03] VITALS: BP 162/95; PULSE 108; RESP 18; O2SAT 98
--- NOTE | 2023-03-27 23:30 | XRAY ---
CLINICAL HISTORY:Bilateral flank pain COMPARISON:05/31/2022 TECHNIQUE:CT scan of the abdomen and pelvis was performed with IV contrast.Coronal and sagittal reconstructive images were also obtained. FINDINGS: Sections of lower thorax show no significant abnormality. Abdomen: Long segmental mild edematous mural thickening of descending colon noted with mild pericolonic fat stranding at splenic flexure, possibility of non-specific colitis appears likely. Tiny diverticula are seen at ascending, transverse and proximal descending colon without evidence of wall thickening. Study remained limited due to absence of oral contrast. The liver is of average size. No focal or diffuse parenchymal abnormality. The portal vein, intrahepatic biliary radicals and the bile ducts are normal. The gallbladder is distended. There is no evidence of wall thickening/ pericholecystic collection. The spleen, pancreas, adrenal glands are unremarkable. The kidneys are normal in size and shape. No calculi or hydronephrosis. The ascending colon, the transverse colon, the visualized small bowel loops are unremarkable. There is no evidence of significant enlargement of the mesenteric or retroperitoneal lymph nodes Pelvis: Multiple diverticulae noted in sigmoid colon with some of the larger diverticular showing fecal impaction. No definite evidence of newly onset acute diverticulitis seen. The urinary bladder is unremarkable. The rectosigmoid colon is unremarkable. The uterus and adnexa appear unremarkable. No evidence of pelvic lymphadenopathy. The lumbar spine shows early degenerative changes. IMPRESSION: 1. Long segmental mild edematous mural thickening of descending colon with mild pericolonic fat stranding at splenic flexure related to non-specific colitis. This is new development as compared to previous CT 05/31/2022. 2. Multiple diverticulae in descending, sigmoid colon with some of the larger diverticular showing fecal impaction. No evidence acute diverticulitis . Electronically Signed by: Emilee Nye MD. (03/27/2023 22:28:22 CRYSTAL LAPPER)
[2023-03-28] MEDS ORDERED: Flagyl 500 MG ONE (00:05)
[2023-03-28] MEDS ORDERED: Levofloxacin 500 MG Tablet ONE (00:05)
[2023-03-28] MEDS: Flagyl 500 MG PO ONE (00:07)
[2023-03-28] MEDS: Levofloxacin 500 MG Tablet PO ONE (00:07)
== END 2023-03-28 00:16 | disposition home or self-care (01) ==
LOC: ED 19:32
DX: K52.9 Noninfective gastroenteritis and colitis, unspecified (principal); K59.00 Constipation, unspecified; R11.2 Nausea with vomiting, unspecified; R10.30 Lower abdominal pain, unspecified; R10.9 Unspecified abdominal pain; R53.83 Other fatigue; E11.9 Type 2 diabetes mellitus without complications; I10 Essential (primary) hypertension; Z79.84 Long term (current) use of oral hypoglycemic drugs; Z79.85 Long-term (current) use of injectable non-insulin antidiabetic drugs; Z79.899 Other long term (current) drug therapy; Z28.310 Unvaccinated for COVID-19; Z86.16 Personal history of COVID-19
CPT/HCPCS: 36000; 36415; 74177; 80053; 81001; 83690; 85025; 96360; 96374; 99284; J1885; A9270-GY

== ENCOUNTER 2023-08-24 06:32 | Day surgery (SDC) | payer OTHER ==
[2023-08-24] MEDS ORDERED: BUPIVACAINE 0.5% VIAL IJ ONE (06:33)
[2023-08-24] MEDS ORDERED: Depo-Medrol 40 MG/ML IM ONE (06:33)
[2023-08-24] MEDS ORDERED: DIPRIVAN 200 MG/20 ML IV ONE (08:33)
[2023-08-24] MEDS ORDERED: Lactated Ringers 1,000 ML IV ONE (09:16)
--- NOTE | 2023-08-24 12:24 | XRAY ---
Indication: Left hip injection. Intraoperative fluoroscopy provided for 7 seconds. Single digital spot image submitted for interpretation demonstrates needle tip projecting lateral to left femur neck. Small amount of contrast injected for needle tip placement. Correlate with intraoperative findings/report.
--- NOTE | 2023-08-24 12:33 | XRAY ---
7 seconds of fluoroscopy was used in surgery for a left intra-articular hip injection.
== END 2023-08-24 08:58 | disposition home or self-care (01) ==
LOC: SDC-PAIN 06:32
PROVIDERS: ATTEND Psychiatry & Neurology Pain Medicine
DX: M16.12 Unilateral primary osteoarthritis, left hip (principal); E11.9 Type 2 diabetes mellitus without complications
CPT/HCPCS: 20610; 73501; 77002; 82947; J1010; J2704; Q9966

== ENCOUNTER 2023-11-11 11:42 | Emergency (ER) | payer OTHER ==
[2023-11-11 12:01] VITALS: TEMP 97.6
--- NOTE | 2023-11-11 12:20 | ERPHSYRPT ---
- History of Present Illness Time Seen by Provider: 11/11/23 12:19 Source: patient Exam Limitations: no limitations Patient Subjective Stated Complaint: Pt reports she noticed some "crusties" in the left eye tuesday night and tuesday morning left eye was swollen. She called her pcp and was given erythromycin ointment which she has been using for 3-4 days with no relief. Pt reports she has had "blood in discharge". Triage Nursing Assessment: Pt alert and oriented x3. Respirations easy/nonlabored. Skin w/p/d. Ambulated to ED cot without difficulty. Left eye swollen and red. Visual acuity corrected: right - 20/30, left - 20/50. Physician History: The patient presents with a swollen eye that began as crustiness on Tuesday, progressed to swelling on Tuesday, and began bleeding on Tuesday night. They were prescribed erythromycin ointment by their primary care physician, but the swelling has not subsided. They have had similar, but less severe, episodes in January and March. The patient also reports a history of styes. They recently had laser eye surgery and have been using a steroid eye drop post- operatively. The patient is concerned about potential irritation from smoke during a planned cookout and fireworks display and requests an eye patch. Timing/Duration: day(s) (4) Location: left eye Severity: moderate Apparent Injury: no Associated Symptoms: pain, redness, matting, eyelid swelling Visual Assistive Devices: None Chemical Exposure: No Trauma: No Welding Arc/Tanning Bed Exposure: No Allergies/Adverse Reactions: No Known Drug Allergies Allergy (Verified 11/11/23 11:54) Home Medications: Insulin Lispro [Admelog Solostar] 115 units SQ DAILY 06/18/22 [History] Omeprazole 40 mg PO DAILY 09/19/22 [History] Dapagliflozin Propanediol [Farxiga] 10 mg PO DAILY 03/27/23 [History] Polyethylene Glycol 3350 17 gm [Miralax Powder 17GM PACKET] 17 gm PO DAILY PRN 11/11/23 [History] Hx Tetanus, Diphtheria Vaccination/Date Given: Yes Hx Influenza Vaccination/Date Given: Yes Hx Pneumococcal Vaccination/Date Given: Yes Travel Risk - International Travel Have you traveled outside of the country in past 3 weeks: No - Emerging Infectious Disease Are you exhibiting symptoms associated with any current EIDs: No - Review of Systems All Other Systems: Reviewed and Negative - Past Medical History Pertinent Past Medical History: Yes Neurological History: No Pertinent History ENT History: Glaucoma Cardiac History: No Pertinent History Respiratory History: COPD Endocrine Medical History: Diabetes Type II, Other Musculoskeletal History: Osteoarthritis, Other GI Medical History: Pancreatitis Psycho-Social History: Anxiety Other Medical History: SX HX: INSULIN PUMP PLACEMENT, RIGHT SHOULDER LABRUM REPAIR (2010), ACHILLES TENDON REPAIR (2009), , BILATERAL CARPAL TUNNEL AND TRIGGER FINGER RELEASE THUMBS AND RIGHT FINGERS. PMHX: CIRRHOSIS, PANCREATITIS, COVID, ANXIETY - Past Surgical History Past Surgical History: Yes Cardiac: Cardiac Catheterization Genitourinary: Other Female Surgical History: Section, Other Other Surgical History: achilles tendon, kidney stone with stent (now removed), bladder sling Significant Family History: no pertinent family hx - Social History Smoking Status: Former smoker Exposure to second hand smoke: Yes Drug Use: none Patient Lives Alone: No - Social Determinants of Health Will the patient participate in the screening: Declined to provide - Nursing Vital Signs Nursing Vital Signs: Initial Vital Signs Temperature 97.6 F 11/11/23 11:49 Pulse Rate 95 H 11/11/23 11:49 Respiratory Rate 18 11/11/23 11:49 Blood Pressure 150/92 11/11/23 11:49 O2 Sat by Pulse Oximetry 94 L 11/11/23 11:49 Pain Scale Pain Intensity 0 - Physical Exam General Appearance: no apparent distress Vision Acuity Degree Evaluation Phase: Corrected Vision Acuity Right Eye: 20/30 Vision Acuity Left Eye: 20/50 Eye Exam: left eye: PERRL, EOMI, eyelid inflammation (periorbital erythema, swelling), stye Neck Exam: normal inspection, non-tender, supple, full range of motion SpO2: 94 - Course Nursing assessment & vital signs reviewed: Yes Ordered Tests: Active Orders 24 hr Category Date Time Status Eye Patch Application STAT Care 11/11/23 12:21 Completed Medication Summary Discontinued Medications Generic Name Dose Route Start Last Admin Trade Name Freq PRN Reason Stop Dose Admin Amoxicillin 1,000 mg 11/11/23 12:25 11/11/23 12:28 Amoxicillin Trihydrate 500 Mg Capsule PO 11/11/23 12:26 1,000 mg STAT ONE Administration Amoxicillin Confirm 11/11/23 12:28 Amoxicillin Trihydrate 500 Mg Capsule Administered 11/11/23 12:29 Dose 1,000 mg .ROUTE .STK-MED ONE Vancomycin HCl 1 gm in 200 mls @ 125 mls/hr 11/11/23 12:20 11/11/23 12:26 Vancomycin 1 Gram/200 Ml Bag IV 11/11/23 13:55 Not Given STAT ONE Ceftriaxone Sodium 2 gm in 100 mls @ 200 mls/hr 11/11/23 12:20 11/11/23 12:26 Rocephin 2 Gm/100 Ml Nacl IV 11/11/23 12:49 Not Given STAT ONE Trimethoprim/Sulfamethoxazole 1 tab 11/11/23 12:24 11/11/23 12:28 Smz/Tmp Ds Tablet 1 Tablet PO 11/11/23 12:25 1 tab STAT STA Administration Trimethoprim/Sulfamethoxazole Confirm 11/11/23 12:27 Smz/Tmp Ds Tablet 1 Tablet Administered 11/11/23 12:28 Dose 1 tab PO .STK-MED ONE - Progress Progress: unchanged Progress Note: Periorbital Cellulitis: Swelling and crusting of the eye since Tuesday, with progression to bleeding. Likely secondary to a ruptured stye. Prior similar episodes in January and March. -Start Bactrim and Amoxicillin x 7 days. -Continue warm compresses, alternating with cold for comfort. -Use [id number] eye lubricant as needed. -Schedule follow-up with digital coordinator (Dr. Asif) for further evaluation and possible drainage. -Eye patch per patient request. Counseled pt/family regarding: diagnosis, need for follow-up Medical Desision Making - Diagnostic Testing Diagnostic test were ordered, analyzed, and reviewed by me: No - Risk of complications The pt has a mod risk of morbidity or mortality based on: Need for prescription drug management - Departure Departure Disposition: Home Clinical Impression: Periorbital cellulitis of left eye, Hordeolum externum left upper eyelid Condition: Good Critical Care Time: No Referrals: ARANZA GERBER DO [Primary Care Provider] - Follow up/PCP as directed Instructions: Cellulitis around the eye Prescriptions: Amoxicillin 875 mg PO BID 7 Days #14 tablet Sulfamethoxazole/Trimethoprim [Bactrim Ds Tablet] 1 each PO BID 7 Days #14 tablet
[2023-11-11] MEDS: VANCOMYCIN 1 GRAM/200 ML BAG 1 GM/200 ML PIGGYBACK IV ONE (12:26)
[2023-11-11] MEDS: ROCEPHIN 2 GM/100 ML NACL 2 GM/100 ML IVPB IV ONE (12:26)
[2023-11-11] MEDS ORDERED: BACTRIM DS TABLET PO ONE (12:27)
[2023-11-11] MEDS ORDERED: AMOXIL 500 MG ONE (12:28)
[2023-11-11] MEDS: AMOXIL 500 MG PO ONE (12:28)
[2023-11-11] MEDS: BACTRIM DS TABLET PO STA (12:28)
[2023-11-11 12:35] VITALS: BP 122/85; PULSE 82; RESP 17
[2023-11-11 12:52] VITALS: O2SAT 94
== END 2023-11-11 12:40 | disposition home or self-care (01) ==
LOC: ED 11:42
DX: L03.213 Periorbital cellulitis (principal); H00.014 Hordeolum externum left upper eyelid; E11.9 Type 2 diabetes mellitus without complications; Z79.4 Long term (current) use of insulin; Z79.84 Long term (current) use of oral hypoglycemic drugs; Z79.899 Other long term (current) drug therapy
CPT/HCPCS: 99282; A9270-GY

== ENCOUNTER 2023-12-28 07:01 | Day surgery (SDC) | payer OTHER ==
[2023-12-28] MEDS ORDERED: BUPIVACAINE 0.5% VIAL IJ ONE (07:02)
[2023-12-28] MEDS ORDERED: Depo-Medrol 40 MG/ML IM ONE (07:02)
[2023-12-28] MEDS ORDERED: DIPRIVAN 200 MG/20 ML IV ONE ×2 (08:43→08:50)
[2023-12-28] MEDS ORDERED: Lactated Ringers 1,000 ML IV ONE (09:28)
--- NOTE | 2023-12-28 10:10 | XRAY ---
Indication: Bilateral hip injection. Intraoperative fluoroscopy provided for 25 seconds. 3 digital spot images submitted for interpretation demonstrates needle tips projecting lateral to left/right femur necks. Small amount of contrast injected for both needle tip placement. Correlate with intraoperative findings/report.
--- NOTE | 2023-12-28 10:46 | XRAY ---
25 seconds of fluoroscopy was used in surgery for a bilateral intra-articular hip injection.
== END 2023-12-28 09:15 ==
LOC: SDC-PAIN 07:01
PROVIDERS: ATTEND Psychiatry & Neurology Pain Medicine
DX: M16.0 Bilateral primary osteoarthritis of hip (principal); E11.9 Type 2 diabetes mellitus without complications
CPT/HCPCS: 20610; 73521; 77002; 82947; J2704; Q9966

== ENCOUNTER 2024-01-02 13:38 | Emergency (ER) | payer OTHER ==
[2024-01-02 13:56] VITALS: TEMP 98.7
--- NOTE | 2024-01-02 14:06 | ERPHSYRPT ---
- History of Present Illness Time Seen by Provider: 01/02/24 13:57 Source: patient Exam Limitations: no limitations Patient Subjective Stated Complaint: pt here for sudden onset of dizziness, she states she feels like she is unsteady, she was able to go to pain management apt first Triage Nursing Assessment: pt alert, resp easy. able to undress self,gait steady, skin w/d/p. no edema noted Timing/Duration: today Severity: mild Associated Symptoms: denies symptoms Allergies/Adverse Reactions: No Known Drug Allergies Allergy (Verified 01/02/24 13:49) Home Medications: Insulin Lispro [Admelog Solostar] 155 units SQ DAILY 06/18/22 [History] Omeprazole 40 mg PO DAILY 09/19/22 [History] Dapagliflozin Propanediol [Farxiga] 10 mg PO DAILY 03/27/23 [History] Polyethylene Glycol 3350 17 gm [Miralax Powder 17GM PACKET] 17 gm PO DAILY PRN 11/11/23 [History] Amoxicillin/Potassium Clav [Amox-Clav 875-125 mg Tablet] 1 each PO BID 01/02/24 [History] Atorvastatin Calcium 10 mg PO DAILY 01/02/24 [History] Oxycodone HCl 5 mg Ir [Oxy-IR 5 MG] 5 mg PO BID 01/02/24 [History] Hx Tetanus, Diphtheria Vaccination/Date Given: Yes Hx Influenza Vaccination/Date Given: No Hx Pneumococcal Vaccination/Date Given: Yes Immunizations Up to Date: Yes Travel Risk - International Travel Have you traveled outside of the country in past 3 weeks: No - Emerging Infectious Disease Are you exhibiting symptoms associated with any current EIDs: No - Review of Systems Eyes: No Symptoms Ears, Nose, & Throat: No Symptoms Respiratory: No Symptoms Cardiac: No Symptoms Abdominal/Gastrointestinal: No Symptoms Genitourinary Symptoms: No Symptoms Musculoskeletal: No Symptoms Skin: No Symptoms Neurological: No Symptoms Psychological: No Symptoms Endocrine: No Symptoms Hematologic/Lymphatic: No Symptoms Immunological/Allergic: No Symptoms All Other Systems: Reviewed and Negative - Past Medical History Pertinent Past Medical History: Yes Neurological History: No Pertinent History ENT History: Glaucoma Cardiac History: No Pertinent History, High Cholesterol Respiratory History: COPD Endocrine Medical History: Diabetes Type II, Other Musculoskeletal History: Osteoarthritis, Other GI Medical History: Pancreatitis Psycho-Social History: Anxiety Other Medical History: SX HX: INSULIN PUMP PLACEMENT, RIGHT SHOULDER LABRUM REPAIR (2010), ACHILLES TENDON REPAIR (2010), , BILATERAL CARPAL TUNNEL AND TRIGGER FINGER RELEASE THUMBS AND RIGHT FINGERS. PMHX: CIRRHOSIS, PANCREATITIS, COVID, ANXIETY - Past Surgical History Past Surgical History: Yes Cardiac: Cardiac Catheterization Genitourinary: Other Female Surgical History: Section, Other Other Surgical History: achilles tendon, kidney stone with stent (now removed), bladder sling Significant Family History: no pertinent family hx - Social History Smoking Status: Former smoker Exposure to second hand smoke: Yes Drug Use: none Patient Lives Alone: No - Social Determinants of Health Will the patient participate in the screening: Declined to provide - Nursing Vital Signs Nursing Vital Signs: Initial Vital Signs Pulse Rate 85 01/02/24 13:46 Respiratory Rate 20 01/02/24 13:46 Blood Pressure 155/78 01/02/24 13:46 O2 Sat by Pulse Oximetry 96 01/02/24 13:46 Pain Scale Pain Intensity 0 - Physical Exam General Appearance: no apparent distress Eye Exam: PERRL/EOMI Ears, Nose, Throat Exam: normal ENT inspection Neck Exam: normal inspection Respiratory Exam: normal breath sounds Cardiovascular Exam: regular rate/rhythm, normal heart sounds Gastrointestinal/Abdomen Exam: soft, normal bowel sounds Back Exam: normal inspection Neurologic Exam: alert, oriented x 3 Skin Exam: normal color, warm SpO2: 98 Ordered Tests: Active Orders 24 hr Category Date Time Status HEAD WITHOUT CONTRAST [CT] Stat Exams 01/02/24 14:02 Completed CBC W DIFF Stat Lab 01/02/24 14:05 Completed CMP Stat Lab 01/02/24 14:05 Completed UA W/RFX UR CULTURE Stat Lab 01/02/24 14:08 Completed Medication Summary Generic Name Dose Route Start Last Admin Trade Name Freq PRN Reason Stop Dose Admin Meclizine HCl 25 mg 01/02/24 14:57 Meclizine Hcl 25 Mg Tablet PO 02/01/24 14:56 Q6H PRN PRN DIZZINESS Discontinued Medications Generic Name Dose Route Start Last Admin Trade Name Freq PRN Reason Stop Dose Admin Sodium Chloride 1,000 mls @ 999 mls/hr 01/02/24 14:01 01/02/24 16:18 Sodium Chloride 0.9% 1000 Ml IV 01/02/24 15:01 Infused .Q1H1M STA Infusion Sodium Chloride Confirm 01/02/24 14:28 Sodium Chloride 0.9% 1000 Ml Administered 01/02/24 14:29 Dose 1,000 mls @ ud .ROUTE .STK-MED ONE Sodium Chloride 1,000 mls @ 999 mls/hr 01/02/24 16:50 01/02/24 16:57 Sodium Chloride 0.9% 1000 Ml IV 01/02/24 17:50 999 mls/hr .Q1H1M STA Administration Sodium Chloride Confirm 01/02/24 16:55 Sodium Chloride 0.9% 1000 Ml Administered 01/02/24 16:56 Dose 1,000 mls @ ud .ROUTE .STK-MED ONE Lab/Rad Data: Laboratory Result Diagrams 01/02/24 14:05 01/02/24 14:05 Laboratory Results 01/02/24 01/02/24 01/02/24 Range/Units 14:08 14:05 14:05 WBC 9.6 (3.98-10.04) x10^3/uL RBC 5.69 H (3.93-5.22) x10^6/uL Hgb 16.0 H (11.2-15.7) g/dL Hct 50.0 H (34.1-44.9) % MCV 87.9 (79.4-94.8) fL MCH 28.1 (25.6-32.2) pg MCHC 32.0 L (32.2-35.5) g/dL RDW 13.9 (11.7-14.4) % Plt Count 242 (182-369) x10^3/uL MPV 11.5 (9.4-12.3) fL Gran % 62.8 (34.0-71.1) % Immature Gran % (Auto) 0.9 H (0.001-0.429) % Nucleat RBC Rel Count 0.0 (0.00-0.2) % Eos # (Auto) 0.31 (0.04-0.36) x10^3/uL Immature Gran # (Auto) 0.09 H (0.001-0.031) x10^3u/L Absolute Lymphs (auto) 2.37 (1.18-3.74) x10^3/uL Absolute Monos (auto) 0.75 (0.24-0.86) x10^3/uL Absolute Nucleated RBC 0.00 (0.00-0.012) x10^3u/L Lymphocytes % 24.6 (19.3-51.7) % Monocytes % 7.8 (4.7-12.5) % Eosinophils % 3.2 (0.7-5.8) % Basophils % 0.7 (0.1-1.2) % Absolute Granulocytes 6.05 (1.56-6.13) x10^3/uL Basophils # 0.07 (0.01-0.08) x10^3/uL Sodium 139 (135-145) mmol/L Potassium 3.9 (3.5-5.1) mmol/L Chloride 101 (98-107) mmol/L Carbon Dioxide 28 (22-30) mmol/L Anion Gap 14.2 (5-15) MEQ/L BUN 9 (7-17) mg/dL Creatinine 0.83 (0.52-1.04) mg/dL Estimated GFR 81.2 ML/MIN Glucose 135 H (74-106) mg/dL Calcium 9.3 (8.4-10.2) mg/dL Total Bilirubin 0.40 (0.2-1.3) mg/dL AST 69 H (14-36) U/L ALT 77 H (0-35) U/L Alkaline Phosphatase 104 (38-126) U/L Serum Total Protein 7.8 (6.3-8.2) g/dL Albumin 4.5 (3.5-5.0) g/dL Urine Color Yellow (Yellow) Urine Appearance Clear (Clear) Urine pH 6.5 (4.6-8.0) Ur Specific [place] >=1.030 A (1.005-1.030) Urine Protein Negative (Negative) Urine Glucose (UA) >=1000 A (Negative) mg/dL Urine Ketones Negative (Negative) Urine Blood Negative (Negative) Urine Nitrite Negative (Negative) Urine Bilirubin Negative (Negative) Urine Urobilinogen 1.0 A (0.2) mg/dL Ur Leukocyte Esterase Negative (Negative) U Hyaline Cast (Auto) NONE SEEN (0-2) /LPF Urine Microscopic RBC 0-2 (0-5) /HPF Urine Microscopic WBC 0-2 (0-5) /HPF Ur Epithelial Cells None Seen (None Seen) /HPF Urine Bacteria None Seen (None Seen) /HPF Urine Culture Reflexed NO (NO) - Progress Progress Note: Syncope patient was seen and evaluated for dizziness labs were obtained head CT was obtained she was given IV fluids she responded well to the IV fluids she requested a second bag as she felt dehydrated she was informed of the need for admission however prefer to go home and will return to the ER if she were to get worse all risk of noncompliance explained she is of sound medical decision- making capability. she appears to have improved upon reexamination 01/02/24 18:30 Medical Desision Making - Discussion of managment Agreed on:: need for follow-up - Departure Clinical Impression: Dehydration, Dizziness Condition: Stable Critical Care Time: No Referrals: ARANZA GERBER DO [Primary Care Provider] - Follow up/PCP as directed Prescriptions: Meclizine HCl 25 mg [Antivert 25 mg] 25 mg PO Q8H PRN #10 tablet PRN Reason: Anxiety
[2024-01-02 14:15] LABS: Absolute Neutrophil Ct (ANC) 6.05 x10^3/uL (1.56-6.13); BASOPHIL % 0.7 % (0.1-1.2); Basophil (Absolute #) 0.07 x10^3/uL (0.01-0.08); Eosinophil % 3.2 % (0.7-5.8); Eosinophil (Absolute #) 0.31 x10^3/uL (0.04-0.36); IMMATURE GRAN # 0.09 x10^3u/L (0.001-0.031); IMMATURE GRAN % 0.9 % (0.001-0.429); Lymphocyte (Absolute #) 2.37 x10^3/uL (1.18-3.74); Lymphocytes % 24.6 % (19.3-51.7); Mean Cell Volume 87.9 fL (79.4-94.8); Mean Corpuscular Hemoglobin 28.1 pg (25.6-32.2); Mean Platelet Volume 11.5 fL (9.4-12.3); Monocyte (Absolute #) 0.75 x10^3/uL (0.24-0.86); Monocytes % 7.8 % (4.7-12.5); Neutrophil % 62.8 % (34.0-71.1); Platelet Count 242 x10^3/uL (182-369); Red Blood Count 5.69 x10^6/uL (3.93-5.22); Red Cell Distribution Width 13.9 % (11.7-14.4); White Blood Count 9.6 x10^3/uL (3.98-10.04)
[2024-01-02 14:25] LABS: Appearance Clear (Clear); Bacteria None Seen /HPF (None Seen); Bilirubin Negative (Negative); Blood Negative (Negative); Epithelial Cells None Seen /HPF (None Seen); Glucose, Urine >=1000 mg/dL (Negative); Hyaline Casts NONE SEEN /LPF (0-2); Ketones Negative (Negative); Leukocyte Esterase Negative (Negative); Nitrite Negative (Negative); Ph 6.5 (4.6-8.0); Protein,Urine Dip Negative (Negative); RBC 0-2 /HPF (0-5); Specific Gravity >=1.030 (1.005-1.030); WBC 0-2 /HPF (0-5)
[2024-01-02 14:28] LABS: ADD URINE CULTURE? NO (NO)
[2024-01-02] MEDS ORDERED: Sodium Chloride 0.9% 1000 ML 1,000 ML ONE ×2 (14:28→16:55)
[2024-01-02 14:29] LABS: ALBUMIN 4.5 g/dL (3.5-5.0); ANION GAP 14.2 MEQ/L (5-15); BILIRUBIN,TOTAL 0.4 mg/dL (0.2-1.3); Calcium 9.3 mg/dL (8.4-10.2); Creatinine 1 0.83 mg/dL (0.52-1.04); EST GLOMERULAR FILTRATION RATE 81.2 ML/MIN; Potassium 3.9 mmol/L (3.5-5.1); Total Protein 7.8 g/dL (6.3-8.2)
[2024-01-02] MEDS: Sodium Chloride 0.9% 1000 ML 1,000 ML IV STA ×2 (14:31→16:57)
[2024-01-02] MEDS ORDERED: ANTIVERT 25 MG PO PRN (14:57)
--- NOTE | 2024-01-02 15:04 | XRAY ---
Indication: Dizziness. Multiple contiguous axial images obtained through the head without contrast. Comparison: None Normal appearing brain parenchyma, ventricles, and bony calvarium for patient's age. Visualized paranasal sinuses and mastoid air cells are clear. Impression: Normal CT head without contrast exam.
[2024-01-02 16:16] VITALS: BP 131/88; PULSE 78; RESP 19
[2024-01-02 18:33] VITALS: O2SAT 98
== END 2024-01-02 18:50 | disposition home or self-care (01) ==
LOC: ED 13:38
DX: E86.0 Dehydration (principal); R42 Dizziness and giddiness; E78.5 Hyperlipidemia, unspecified; E11.9 Type 2 diabetes mellitus without complications; Z79.4 Long term (current) use of insulin; Z79.84 Long term (current) use of oral hypoglycemic drugs; Z79.891 Long term (current) use of opiate analgesic; Z79.899 Other long term (current) drug therapy
CPT/HCPCS: 36000; 36415; 70450; 80053; 81001; 85025; 93005; 96360; 96361; 99284

== ENCOUNTER 2024-03-08 07:09 | Day surgery (SDC) | payer OTHER ==
[2024-03-08] MEDS ORDERED: Xylocaine-Mpf 2% 5 Ml Vial IJ ONE (07:10)
[2024-03-08] MEDS ORDERED: Zofran 4 MG/2 ML VIAL ONE (08:05)
[2024-03-08] MEDS ORDERED: DIPRIVAN 200 MG/20 ML IV ONE (08:53)
--- NOTE | 2024-03-08 09:48 | XRAY ---
Indication: Bilateral L1-L3 MBB. Intraoperative fluoroscopy provided for 13 seconds. Single digital spot image submitted for interpretation demonstrates posterior needle tips projecting over the expected left and right L1-L3 nerve roots. Correlate with intraoperative findings/report.
--- NOTE | 2024-03-08 10:43 | XRAY ---
13 seconds of fluoroscopy was used in surgery for a bilateral L1-L3 MBB.
== END 2024-03-08 09:28 | disposition home or self-care (01) ==
LOC: SDC-PAIN 07:09
PROVIDERS: ATTEND Psychiatry & Neurology Pain Medicine
DX: M47.817 Spondylosis without myelopathy or radiculopathy, lumbosacral region (principal); M79.18 Myalgia, other site; E11.9 Type 2 diabetes mellitus without complications
CPT/HCPCS: 64493; 64494; 72020; 77002; 82947; J2405; J2704

== ENCOUNTER 2024-04-18 06:52 | Day surgery (SDC) | payer OTHER ==
[2024-04-18] MEDS ORDERED: BUPIVACAINE 0.5% VIAL IJ ONE (06:53)
[2024-04-18] MEDS ORDERED: DIPRIVAN 200 MG/20 ML IV ONE (08:13)
--- NOTE | 2024-04-18 11:01 | XRAY ---
Indication: Bilateral L1-L3 MBB. Intraoperative fluoroscopy provided for 21 seconds. Single digital spot image submitted for interpretation demonstrates posterior needle tips projecting over expected left and right L1-L3 nerve roots. Correlate with intraoperative findings/report.
--- NOTE | 2024-04-18 12:16 | XRAY ---
21 seconds of fluoroscopy was used in surgery for a bilateral L1-L3 MBB.
== END 2024-04-18 08:54 | disposition home or self-care (01) ==
LOC: SDC-PAIN 06:52
PROVIDERS: ATTEND Psychiatry & Neurology Pain Medicine
DX: M47.816 Spondylosis without myelopathy or radiculopathy, lumbar region (principal); E11.9 Type 2 diabetes mellitus without complications
CPT/HCPCS: 64493; 64494; 72020; 77002; 82947; J2704

== ENCOUNTER 2024-04-29 08:52 | Emergency (ER) | payer OTHER ==
[2024-04-29 09:05] VITALS: PULSE 96; TEMP 98.1; O2SAT 96
--- NOTE | 2024-04-29 09:29 | ERPHSYRPT ---
- History of Present Illness Historian: patient Exam Limitations: no limitations Patient Subjective Stated Complaint: pt c/o of medial abdominal pain and right sided chest pain that she states is not her heart Triage Nursing Assessment: Pt brought self to the ER, vitals wnl, rates overall pain as 7/10, pulses normal, skin n/w/d, pain with palpatation to the medial abdomen, no difficulty breathing, nausea but denies vomiting, last intake last night, doesn't appear to be in any distress Physician History: Patient is complaining of bilateral chest pain. It is in the apices. She says it hurts when she takes a deep breath. She said that sharp and stabbing. It does not hurt when she is not taking deep breaths. She is not short of breath. She does not have chest pain at rest. She has had some mild nausea and some upper abdominal discomfort. It gets worse when she takes a deep breath. It may be pain in the lung bases. She does not have any classic chest pain. She has had no abdominal surgeries. She does not have any known coronary disease other than a heart murmur. Only breathing makes his symptoms better or worse. And is mainly when she takes a deep breath. Timing/Duration: yesterday Aspirin Treatment Today: no aspirin today Allergies/Adverse Reactions: No Known Drug Allergies Allergy (Verified 04/29/24 09:05) Home Medications: Insulin Lispro [Admelog Solostar] 155 units SQ DAILY 06/18/22 [History] Omeprazole 40 mg PO DAILY 09/19/22 [History] Dapagliflozin Propanediol [Farxiga] 10 mg PO DAILY 03/27/23 [History] Atorvastatin Calcium 20 mg PO DAILY 01/02/24 [History] Oxycodone HCl 5 mg Ir [Oxy-IR 5 MG] 5 mg PO BID 01/02/24 [History] Albuterol 8 gm Mdi Hfa [Ventolin Hfa MDI] 2 inh PO Q4H 04/29/24 [History] Aspirin EC 325 mg [Ecotrin 325 MG] 325 mg PO DAILY 04/29/24 [History] Docusate Sodium [Colace] 100 mg PO HS 04/29/24 [History] Fluticasone/Salmeterol 115/21 [Advair Hfa 115/21 Common canister*] 2 inh PO BID 04/29/24 [History] Alamo-3 Fatty Acids [Alamo-3] 1,000 mg PO DAILY 04/29/24 [History] Pregabalin 50 mg [Lyrica 50MG] 50 mg PO TID 04/29/24 [History] Quetiapine Fumarate 25 mg [Seroquel 25 MG] 25 mg PO DAILY 04/29/24 [History] Tirzepatide [Mounjaro] 5 mg SQ WEEKLY 04/29/24 [History] Trazodone HCl 50 mg [Desyrel 50 mg] 50 mg PO HS 04/29/24 [History] Vibegron [Gemtesa] 75 mg PO DAILY 04/29/24 [History] Hx Tetanus, Diphtheria Vaccination/Date Given: Yes Hx Influenza Vaccination/Date Given: No Hx Pneumococcal Vaccination/Date Given: Yes Travel Risk - International Travel Have you traveled outside of the country in past 3 weeks: No - Emerging Infectious Disease Are you exhibiting symptoms associated with any current EIDs: Yes Symptoms: Abdominal Pain - Review of Systems Constitutional: No Symptoms Eyes: No Symptoms Ears, Nose, & Throat: No Symptoms Genitourinary Symptoms: No Symptoms Musculoskeletal: No Symptoms - Past Medical History Pertinent Past Medical History: Yes Neurological History: No Pertinent History ENT History: Glaucoma Cardiac History: High Cholesterol Respiratory History: COPD Endocrine Medical History: Diabetes Type II Musculoskeletal History: Arthritis GI Medical History: Pancreatitis Psycho-Social History: Anxiety Other Medical History: PATIENT REPORTS SHE FEELS SHE HAS NEUROPATHY BUT NO DX. SUPPOSED TO BE ON CPAP AT NIGHT BUT REFUSES, ANXIETY, DEPRESSION. DIVERTICULITIS. L ROTATOR CUFF, R SHOULDER LABRUM REPAIR, ACHILLES TX, PLANTAR FASCIA SX, HEART CATH BUT NO STENT PLACEMENT. - Past Surgical History Past Surgical History: Yes Cardiac: Cardiac Catheterization Genitourinary: Other Female Surgical History: Section, Other Other Surgical History: achilles tendon, kidney stone with stent (now removed), bladder sling Significant Family History: no pertinent family hx - Social History Smoking Status: Former smoker Exposure to second hand smoke: Yes Drug Use: none Patient Lives Alone: No - Social Determinants of Health Will the patient participate in the screening: Yes Do you worry about a steady place to live?: No Do you have any problems with any of the following?: No known problems In the past 12 months,have you had to go without utilities?: No Transportation Issues: No Has anyone in your support network made you feel unsafe?: No Have you or anyone in your house had to go without enough: No - Nursing Vital Signs Nursing Vital Signs: Initial Vital Signs Temperature 98.1 F 04/29/24 08:57 Pulse Rate 96 H 04/29/24 08:57 Blood Pressure 120/87 04/29/24 08:57 O2 Sat by Pulse Oximetry 96 04/29/24 08:57 Pain Scale Pain Intensity 7 - Physical Exam General Appearance: no apparent distress Eye Exam: PERRL/EOMI Respiratory Exam: normal breath sounds, lungs clear, No chest tenderness, No respiratory distress Cardiovascular Exam: regular rate/rhythm, normal heart sounds Gastrointestinal/Abdomen Exam: soft, normal bowel sounds, No tenderness, No distention Neurologic Exam: alert, oriented x 3 Skin Exam: normal color, warm SpO2: 96 - Course Nursing assessment & vital signs reviewed: Yes Ordered Tests: Active Orders 24 hr Category Date Time Status CHEST 1 VIEW (PORTABLE) Stat Exams 04/29/24 09:34 Taken - Progress Progress: unchanged Air Movement: good Progress Note: Patient was stable throughout stay. Her history and physical exam indicated most likely she has pleuritic type chest pain. Also on the differential was pneumonia. She is not dyspneic so I do not think the pulmonary embolism is aAt all likely. And her chest pain does not have any resemblance to cardiac in origin.I am going to have her use some NSAIDs.She also has some nausea so we will give her some Zofran. 04/29/24 09:28 04/29/24 09:30 Blood Culture(s) Obtained: No Antibiotics given: No Medical Desision Making - Diagnostic Testing Diagnostic test were ordered, analyzed, and reviewed by me: Yes Radiological Interpretation: Interpreted by me - Risk of complications Minimal Risk: Minimal risk of morbidity - Departure Departure Disposition: Home Clinical Impression: Pleurisy Condition: Stable Critical Care Time: No Referrals: ARANZA GERBER DO [Primary Care Provider] - Follow up/PCP as directed Instructions: Pleuritic chest pain Prescriptions: Ondansetron ODT 4 MG [Zofran Odt 4 mg] 4 mg PO Q6H PRN PRN #10 tablet PRN Reason: Nausea Ibuprofen 600 mg [Motrin 600 mg] 600 mg PO QID PRN #30 tablet
[2024-04-29 09:40] VITALS: BP 120/89
--- NOTE | 2024-04-29 19:45 | XRAY ---
Indication: Chest pain. Comparison: October 30, 2022 Portable chest remains inflated and clear. Heart and mediastinal structures within normal limits. Bony thorax with mild degenerative changes intact. No new/acute findings.
== END 2024-04-29 09:48 | disposition home or self-care (01) ==
LOC: ED 08:52
DX: R09.1 Pleurisy (principal); R07.9 Chest pain, unspecified; R10.84 Generalized abdominal pain
CPT/HCPCS: 71045; 99283

== ENCOUNTER 2024-05-23 11:27 | Emergency (ER) | payer OTHER ==
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
[2024-05-23 12:13] VITALS: RESP 18; TEMP 98.3
[2024-05-23] MEDS ORDERED: Ativan 2 MG/1 ML VIAL ONE (12:26)
[2024-05-23] MEDS: Ativan 2 MG/1 ML VIAL IM ONE (12:28)
[2024-05-23 13:04] VITALS: O2SAT 98
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
[2024-05-23 14:09] VITALS: BP 125/78; PULSE 75
== END 2024-05-23 14:43 | disposition home or self-care (01) ==
LOC: ED 11:27
DX: S16.1XXA Strain of muscle, fascia and tendon at neck level, initial encounter (principal); V89.2XXA Person injured in unspecified motor-vehicle accident, traffic, initial encounter; R51.9 Headache, unspecified; R42 Dizziness and giddiness; E78.5 Hyperlipidemia, unspecified; E11.9 Type 2 diabetes mellitus without complications; Z79.52 Long term (current) use of systemic steroids; Z79.4 Long term (current) use of insulin; Z79.84 Long term (current) use of oral hypoglycemic drugs; Z79.85 Long-term (current) use of injectable non-insulin antidiabetic drugs; Z79.899 Other long term (current) drug therapy
CPT/HCPCS: 70450; 72125; 96372; 99284; J2060

== ENCOUNTER 2024-07-11 08:18 | Day surgery (SDC) | payer OTHER ==
[2024-07-11] MEDS ORDERED: BUPIVACAINE 0.5% VIAL IJ ONE (08:19)
[2024-07-11] MEDS ORDERED: Depo-Medrol 40 MG/ML IM ONE (08:19)
[2024-07-11] MEDS ORDERED: LIDOCAINE HCL 1% AMPUL 5 ML IJ ONE (08:19)
[2024-07-11] MEDS ORDERED: Lactated Ringers 500 ML IV ONE (08:53)
[2024-07-11] MEDS ORDERED: propofoL IV ONE (10:26)
--- NOTE | 2024-07-11 11:36 | XRAY ---
Indication: Left L1-L3 RFA. Interoperative fluoroscopy provided for 22 seconds. 4 digital spot image submitted for interpretation demonstrates posterior needle tips project over expected left L1-L3 nerve root. Correlate with intraoperative findings/report.
--- NOTE | 2024-07-11 11:44 | XRAY ---
22 seconds of fluoroscopy was used in surgery for a left L1-L3 RFA.
== END 2024-07-11 11:02 | disposition home or self-care (01) ==
LOC: SDC-PAIN 08:18
PROVIDERS: ATTEND Psychiatry & Neurology Pain Medicine
DX: M47.816 Spondylosis without myelopathy or radiculopathy, lumbar region (principal); E11.9 Type 2 diabetes mellitus without complications
CPT/HCPCS: 64635; 64636; 72100; 77002; 82947; J2704

== ENCOUNTER 2024-08-22 11:57 | Emergency (ER) | payer OTHER ==
[2024-08-22 12:08] VITALS: TEMP 97.2
[2024-08-22] MEDS ORDERED: Ventolin Hfa MDI IH PRN (12:20)
[2024-08-22 12:23] VITALS: O2SAT 96
--- NOTE | 2024-08-22 12:23 | ERPHSYRPT ---
- History of Present Illness Source: patient Exam Limitations: no limitations Physician History: Patient is had a cough it has been going on for about a month. She is supposed to be on 3 inhalers. She does not take them on a regular basis at all. She is on Advair albuterol and Symbicort.She has had a cough has been productive of some sputum sometimes clear sometimes white sometimes greenish. She does not have any fever chills or dyspnea. Is just an annoying cough. She says it happens quite frequently throughout the day. Nothing really makes her symptoms better or worse.She does not have any chest pain or infectious symptoms.She is having some wheezing on exam Allergies/Adverse Reactions: No Known Drug Allergies Allergy (Verified 08/22/24 12:06) Home Medications: Insulin Lispro [Admelog Solostar] 155 units SQ DAILY 06/18/22 [History] Omeprazole 40 mg PO DAILY 09/19/22 [History] Dapagliflozin Propanediol [Farxiga] 10 mg PO DAILY 03/27/23 [History] Atorvastatin Calcium 20 mg PO DAILY 01/02/24 [History] Oxycodone HCl 5 mg Ir [Oxy-IR 5 MG] 5 mg PO BID 01/02/24 [History] Albuterol 8 gm Mdi Hfa [Ventolin Hfa MDI] 2 inh PO Q4H 04/29/24 [History] Aspirin EC 325 mg [Ecotrin 325 MG] 325 mg PO DAILY 04/29/24 [History] Docusate Sodium [Colace] 100 mg PO HS 04/29/24 [History] Fluticasone/Salmeterol 115/21 [Advair Hfa 115/21 Common canister*] 2 inh PO BID 04/29/24 [History] [place]-3 Fatty Acids [[place]-3] 1,000 mg PO DAILY 04/29/24 [History] Pregabalin 50 mg [Lyrica 50MG] 50 mg PO TID 04/29/24 [History] Quetiapine Fumarate 25 mg [Seroquel 25 MG] 25 mg PO DAILY 04/29/24 [History] Tirzepatide [Mounjaro] 5 mg SQ WEEKLY 04/29/24 [History] Trazodone HCl 50 mg [Desyrel 50 mg] 50 mg PO HS 04/29/24 [History] Vibegron [Gemtesa] 75 mg PO DAILY 04/29/24 [History] Hx Tetanus, Diphtheria Vaccination/Date Given: Yes Hx Influenza Vaccination/Date Given: No Hx Pneumococcal Vaccination/Date Given: Yes Travel Risk - Emerging Infectious Disease Are you exhibiting symptoms associated with any current EIDs: Yes Symptoms: Abdominal Pain - Review of Systems Constitutional: No Symptoms Eyes: No Symptoms Ears, Nose, & Throat: No Symptoms Respiratory: Cough Abdominal/Gastrointestinal: No Symptoms All Other Systems: Reviewed and Negative - Past Medical History Pertinent Past Medical History: Yes Neurological History: No Pertinent History ENT History: Glaucoma Cardiac History: High Cholesterol Respiratory History: COPD Endocrine Medical History: Diabetes Type II Musculoskeletal History: Arthritis GI Medical History: Diverticulosis, Pancreatitis Psycho-Social History: Anxiety Other Medical History: PATIENT REPORTS SHE FEELS SHE HAS NEUROPATHY BUT NO DX. SUPPOSED TO BE ON CPAP AT NIGHT BUT REFUSES, ANXIETY, DEPRESSION. DIVERTICULITIS. L ROTATOR CUFF, R SHOULDER LABRUM REPAIR, ACHILLES [place], PLANTAR FASCIA SX, HEART CATH BUT NO STENT PLACEMENT. - Past Surgical History Past Surgical History: Yes Cardiac: Cardiac Catheterization Genitourinary: Other Female Surgical History: Section, Other Other Surgical History: achilles tendon, kidney stone with stent (now removed), bladder sling Significant Family History: no pertinent family hx - Social History Smoking Status: Former smoker Exposure to second hand smoke: Yes Drug Use: none Patient Lives Alone: No - Social Determinants of Health Will the patient participate in the screening: Yes Do you worry about a steady place to live?: No In the past 12 months,have you had to go without utilities?: No Transportation Issues: No Has anyone in your support network made you feel unsafe?: No Have you or anyone in your house had to go w/o enough food: No - Nursing Vital Signs Nursing Vital Signs: Initial Vital Signs Temperature 97.2 F 08/22/24 12:07 Pulse Rate 95 H 08/22/24 12:07 Respiratory Rate 18 08/22/24 12:07 Blood Pressure 128/102 08/22/24 12:07 O2 Sat by Pulse Oximetry 96 08/22/24 12:07 Pain Scale Pain Intensity 5 - Physical Exam General Appearance: no apparent distress Eye Exam: PERRL/EOMI Respiratory Exam: diminished breath sounds, prolonged expirations, wheezing, No respiratory distress, No accessory muscle use Cardiovascular Exam: regular rate/rhythm, normal heart sounds Back Exam: normal inspection, normal range of motion Neurologic Exam: alert, oriented x 3, cooperative Skin Exam: normal color, warm, dry SpO2: 96 - Course Nursing assessment & vital signs reviewed: Yes Ordered Tests: Active Orders 24 hr Category Date Time Status CHEST 1 VIEW (PORTABLE) Stat Exams 08/22/24 12:23 Taken Respiratory Therapy Assessment DAILY RT 08/22/24 12:35 Active Medication Summary Generic Name Dose Route Start Last Admin Trade Name Freq PRN Reason Stop Dose Admin Albuterol Sulfate 1 gm 08/22/24 12:20 Albuterol Sulfate 8 Gm Mdi Hfa IH 09/21/24 12:19 Q2-4HPRN PRN SHORTNESS OF BREATH/WHEEZING Discontinued Medications Generic Name Dose Route Start Last Admin Trade Name Freq PRN Reason Stop Dose Admin Albuterol/Ipratropium 3 ml 08/22/24 12:20 08/22/24 12:31 Ipratropium/Albuterol Sulfate 3 Ml Ampul.Neb IH 08/22/24 12:21 3 ml STAT ONE Administration Albuterol/Ipratropium Confirm 08/22/24 12:30 Ipratropium/Albuterol Sulfate 3 Ml Ampul.Neb Administered 08/22/24 12:31 Dose 3 ml IH .STK-MED ONE - Progress Progress: improved Air Movement: good Progress Note: Patient was much improved with the nebulizer. I went to start her on prednisone.I believe she is just having a COPD exacerbation. There is no signs or symptoms of infectious etiology.Her chest x-ray was clear. As interpreted by me.Also on the differential was pneumonia, COPD, CHF 08/22/24 13:24 - Departure Departure Disposition: Home Clinical Impression: COPD exacerbation Condition: Stable Critical Care Time: No Referrals: ARANZA GERBER DO [Primary Care Provider] - Follow up/PCP as directed Instructions: Chronic Obstructive Pulmonary Disease, COPD exacerbation Additional Instructions: Take your scheduled inhalers as directed You can use your albuterol inhaler up to every 2 hours as needed. 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 Follow-up with primary care doctor and return if symptoms worsen Prescriptions: Prednisone 20 mg [Deltasone 20 mg] 20 mg PO TID #12 tablet
[2024-08-22] MEDS ORDERED: DUONEB 0.5-3 MG/3 ml Neb IH ONE (12:30)
[2024-08-22] MEDS: DUONEB 0.5-3 MG/3 ml Neb IH ONE (12:31)
[2024-08-22 12:38] VITALS: PULSE 87; RESP 16
--- NOTE | 2024-08-22 13:33 | XRAY ---
Indication: Cough. Comparison: April 29, 2024 Portable chest again demonstrates normal heart and lungs. Bony thorax intact with mild degenerative changes. No new/acute findings.
[2024-08-22 13:45] VITALS: BP 106/70
== END 2024-08-22 13:44 | disposition home or self-care (01) ==
LOC: ED 11:57
DX: J44.1 Chronic obstructive pulmonary disease with (acute) exacerbation (principal); R05.2 Subacute cough; E78.5 Hyperlipidemia, unspecified; E11.9 Type 2 diabetes mellitus without complications; Z79.4 Long term (current) use of insulin; Z79.84 Long term (current) use of oral hypoglycemic drugs; Z79.85 Long-term (current) use of injectable non-insulin antidiabetic drugs; Z79.52 Long term (current) use of systemic steroids; Z79.899 Other long term (current) drug therapy
CPT/HCPCS: 71045; 94640; 99282; 99283; A9270-GY

== ENCOUNTER 2024-08-30 06:48 | Day surgery (SDC) | payer OTHER ==
[2024-08-30] MEDS ORDERED: Depo-Medrol 40 MG/ML IM ONE (06:49)
[2024-08-30] MEDS ORDERED: LIDOCAINE HCL 1% AMPUL 5 ML IJ ONE (06:49)
[2024-08-30] MEDS ORDERED: BUPIVACAINE 0.5% VIAL IJ ONE (06:49)
[2024-08-30] MEDS ORDERED: propofoL IV ONE (08:37)
[2024-08-30] MEDS ORDERED: Lactated Ringers 1,000 ML IV ONE (08:56)
--- NOTE | 2024-08-30 10:36 | XRAY ---
Indication: Right L1-L3 RFA. Intraoperative fluoroscopy provided for 24 seconds. 5 digital spot image submitted for interpretation demonstrates posterior needle tips projecting over expected right L1-L3 nerve roots. Correlate with intraoperative findings/report.
--- NOTE | 2024-08-30 10:53 | XRAY ---
24 seconds of fluoroscopy used in surgery for a right L1-L3 RFA.
== END 2024-08-30 09:19 | disposition home or self-care (01) ==
LOC: SDC-PAIN 06:48
PROVIDERS: ATTEND Psychiatry & Neurology Pain Medicine
DX: M47.817 Spondylosis without myelopathy or radiculopathy, lumbosacral region (principal); E11.9 Type 2 diabetes mellitus without complications
CPT/HCPCS: 64635; 64636; 72100; 82947; J2704

== ENCOUNTER 2024-12-05 10:57 | Emergency (ER) | payer OTHER ==
[2024-12-05 11:19] VITALS: TEMP 96.6
[2024-12-05] MEDS ORDERED: SUBLIMAZE 100 MCG/2 ML ONE (12:01)
[2024-12-05] MEDS ORDERED: Zofran 4 MG/2 ML VIAL ONE (12:01)
[2024-12-05] MEDS: Zofran 4 MG/2 ML VIAL IV ONE (12:09)
--- NOTE | 2024-12-05 12:09 | ERPHSYRPT ---
- History of Present Illness Time Seen by Provider: 12/05/24 11:46 Historian: patient Exam Limitations: no limitations Patient Subjective Stated Complaint: "a couple of days ago upper abdomen pain but it went away and this morning it started again" Triage Nursing Assessment: pt alert/oriented, steady gait, skin warm and dry, vitals within normal limits Physician History: 59 years old female with history of diabetes mellitus, hyperlipidemia, anxiety presented to the ER with complaints of periumbilical to upper abdominal pain all across moderate intensity dull aching to sharp off and on for the last 4 to 5 days with progressive worsening. Reports associated nausea and diarrhea but no vomiting. Diarrhea was towards the beginning of pain and it is improved now. No fever or chills reported. No association of pain with oral intake. Allergies/Adverse Reactions: No Known Drug Allergies Allergy (Verified 08/22/24 12:06) Home Medications: Insulin Lispro [Admelog Solostar] 155 units SQ DAILY 06/18/22 [History] Omeprazole 40 mg PO DAILY 09/19/22 [History] Dapagliflozin Propanediol [Farxiga] 10 mg PO DAILY 03/27/23 [History] Atorvastatin Calcium 20 mg PO DAILY 01/02/24 [History] Oxycodone HCl 5 mg Ir [Oxy-IR 5 MG] 5 mg PO BID 01/02/24 [History] Albuterol 8 gm Mdi Hfa [Ventolin Hfa MDI] 2 inh PO Q4H 04/29/24 [History] Aspirin EC 325 mg [Ecotrin 325 MG] 325 mg PO DAILY 04/29/24 [History] Docusate Sodium [Colace] 100 mg PO HS 04/29/24 [History] Fluticasone/Salmeterol 115/21 [Advair Hfa 115/21 Common canister*] 2 inh PO BID 04/29/24 [History] [place]-3 Fatty Acids [[place]-3] 1,000 mg PO DAILY 04/29/24 [History] Pregabalin 50 mg [Lyrica 50MG] 50 mg PO TID 04/29/24 [History] Quetiapine Fumarate 25 mg [Seroquel 25 MG] 25 mg PO DAILY 04/29/24 [History] Tirzepatide [Mounjaro] 5 mg SQ WEEKLY 04/29/24 [History] Trazodone HCl 50 mg [Desyrel 50 mg] 50 mg PO HS 04/29/24 [History] Vibegron [Gemtesa] 75 mg PO DAILY 04/29/24 [History] Hx Tetanus, Diphtheria Vaccination/Date Given: Yes Hx Influenza Vaccination/Date Given: No Hx Pneumococcal Vaccination/Date Given: Yes Travel Risk - International Travel Have you traveled outside of the country in past 3 weeks: No - Emerging Infectious Disease Are you exhibiting symptoms associated with any current EIDs: No Symptoms: Abdominal Pain - Review of Systems Constitutional: No Symptoms Ears, Nose, & Throat: No Symptoms Respiratory: No Symptoms Cardiac: No Symptoms Abdominal/Gastrointestinal: Abdominal Pain, Nausea Genitourinary Symptoms: No Symptoms Musculoskeletal: Arthralgias Skin: No Symptoms Neurological: No Symptoms Psychological: No Symptoms Hematologic/Lymphatic: No Symptoms Immunological/Allergic: No Symptoms - Past Medical History Pertinent Past Medical History: Yes Neurological History: No Pertinent History ENT History: Glaucoma Cardiac History: High Cholesterol Respiratory History: Asthma, COPD Endocrine Medical History: Diabetes Type II Musculoskeletal History: Arthritis GI Medical History: Diverticulosis, Pancreatitis History: No Pertinent History Psycho-Social History: Anxiety, Depression Female Reproductive Disorders: No Pertinent History Other Medical History: PATIENT REPORTS SHE FEELS SHE HAS NEUROPATHY BUT NO DX. SUPPOSED TO BE ON CPAP AT NIGHT BUT REFUSES, ANXIETY, DEPRESSION. DIVERTICULITIS. L ROTATOR CUFF, R SHOULDER LABRUM REPAIR, ACHILLES TX, PLANTAR FASCIA SX, HEART CATH BUT NO STENT PLACEMENT. - Past Surgical History Past Surgical History: Yes Significant Family History: no pertinent family hx - Social History Smoking Status: Former smoker Exposure to second hand smoke: Yes Drug Use: none - Social Determinants of Health Will the patient participate in the screening: Yes Do you worry about a steady place to live?: No Do you have any problems with any of the following?: No known problems In the past 12 months,have you had to go without utilities?: No Transportation Issues: No Has anyone in your support network made you feel unsafe?: No Have you or anyone in your house had to go w/o enough food: No - Nursing Vital Signs Nursing Vital Signs: Initial Vital Signs Temperature 96.6 F 12/05/24 11:02 Pulse Rate 82 12/05/24 11:02 Respiratory Rate 16 12/05/24 11:02 Blood Pressure 114/71 12/05/24 11:02 O2 Sat by Pulse Oximetry 96 12/05/24 11:02 Pain Scale Pain Intensity 0 - Physical Exam General Appearance: no apparent distress Eye Exam: PERRL/EOMI Ears, Nose, Throat Exam: normal ENT inspection, pharynx normal Neck Exam: normal inspection, supple Respiratory Exam: normal breath sounds, lungs clear Cardiovascular Exam: regular rate/rhythm, normal heart sounds Gastrointestinal/Abdomen Exam: soft, normal bowel sounds, tenderness (Mild upper abdominal tenderness. No rebound tenderness or guarding.) Back Exam: normal inspection, normal range of motion Extremity Exam: normal inspection, normal range of motion Neurologic Exam: alert, oriented x 3, cooperative Skin Exam: normal color SpO2 Interpretation: normal SpO2: 96 O2 Delivery: Room Air Ordered Tests: Active Orders 24 hr Category Date Time Status IV Insertion STAT Care 12/05/24 11:54 Active NPO (ED) STAT Care 12/05/24 11:54 Active ABDOMEN AND PELVIS W/0 CONTRAS [CT] Stat Exams 12/05/24 11:55 Completed CBC W DIFF Stat Lab 12/05/24 12:00 Completed CMP Stat Lab 12/05/24 12:00 Completed LIPASE Stat Lab 12/05/24 12:00 Completed UA W/RFX UR CULTURE Stat Lab 12/05/24 12:00 Completed Medication Summary Discontinued Medications Generic Name Dose Route Start Last Admin Trade Name Freq PRN Reason Stop Dose Admin Fentanyl Citrate 50 mcg 12/05/24 11:54 12/05/24 12:11 Fentanyl Citrate 100 Mcg/2 Ml* Vial IV 12/05/24 11:55 50 mcg STAT ONE Administration Fentanyl Citrate Confirm 12/05/24 12:01 Fentanyl Citrate 100 Mcg/2 Ml* Vial Administered 12/05/24 12:02 Dose 100 mcg .ROUTE .STK-MED ONE Sodium Chloride 500 mls @ 500 mls/hr 12/05/24 11:55 12/05/24 12:10 Sodium Chloride 0.9% 500 Ml IV 12/05/24 12:54 500 mls/hr .Q1H ONE Administration Sodium Chloride Confirm 12/05/24 12:01 Sodium Chloride 0.9% 500 Ml Administered 12/05/24 12:02 Dose 500 mls @ ud IV .STK-MED ONE Ondansetron HCl 4 mg 12/05/24 11:54 12/05/24 12:09 Ondansetron Hcl 4 Mg/2 Ml Vial IV 12/05/24 11:55 4 mg STAT ONE Administration Ondansetron HCl Confirm 12/05/24 12:01 Ondansetron Hcl 4 Mg/2 Ml Vial Administered 12/05/24 12:02 Dose 4 mg .ROUTE .STK-MED ONE Lab/Rad Data: Laboratory Result Diagrams 12/05/24 12:00 12/05/24 12:00 Laboratory Results 12/05/24 12/05/24 12/05/24 Range/Units 12:00 12:00 12:00 WBC 7.6 (3.98-10.04) x10^3/uL RBC 5.86 H (3.93-5.22) x10^6/uL Hgb 16.8 H (11.2-15.7) g/dL Hct 50.4 H (34.1-44.9) % MCV 86.0 (79.4-94.8) fL MCH 28.7 (25.6-32.2) pg MCHC 33.3 (32.2-35.5) g/dL RDW 13.5 (11.7-14.4) % Plt Count 165 L (182-369) x10^3/uL MPV 12.1 (9.4-12.3) fL Gran % 66.0 (34.0-71.1) % Immature Gran % (Auto) 0.5 H (0.001-0.429) % Nucleat RBC Rel Count 0.0 (0.00-0.2) % Eos # (Auto) 0.20 (0.04-0.36) x10^3/uL Immature Gran # (Auto) 0.04 H (0.001-0.031) x10^3u/L Absolute Lymphs (auto) 1.72 (1.18-3.74) x10^3/uL Absolute Monos (auto) 0.55 (0.24-0.86) x10^3/uL Absolute Nucleated RBC 0.00 (0.00-0.012) x10^3u/L Lymphocytes % 22.8 (19.3-51.7) % Monocytes % 7.3 (4.7-12.5) % Eosinophils % 2.6 (0.7-5.8) % Basophils % 0.8 (0.1-1.2) % Absolute Granulocytes 4.99 (1.56-6.13) x10^3/uL Basophils # 0.06 (0.01-0.08) x10^3/uL Sodium 138 (135-145) mmol/L Potassium 4.1 (3.5-5.1) mmol/L Chloride 104 (98-107) mmol/L Carbon Dioxide 23 (22-30) mmol/L Anion Gap 15.1 H (5-15) MEQ/L BUN 9 (7-17) mg/dL Creatinine 0.76 (0.52-1.04) mg/dL Estimated GFR 89.7 ML/MIN Glucose 134 H (74-106) mg/dL Calcium 9.2 (8.4-10.2) mg/dL Total Bilirubin 0.80 (0.2-1.3) mg/dL AST 29 (14-36) U/L ALT 32 (0-35) U/L Alkaline Phosphatase 93 (38-126) U/L Serum Total Protein 6.9 (6.3-8.2) g/dL Albumin 4.1 (3.5-5.0) g/dL Lipase 53 (23-300) U/L Urine Color Yellow (Yellow) Urine Appearance Clear (Clear) Urine pH 5.5 (4.6-8.0) Ur Specific [place] >=1.030 A (1.005-1.030) Urine Protein Negative (Negative) Urine Glucose (UA) >=1000 A (Negative) mg/dL Urine Ketones Negative (Negative) Urine Blood Negative (Negative) Urine Nitrite Negative (Negative) Urine Bilirubin Negative (Negative) Urine Urobilinogen 1.0 A (0.2) mg/dL Ur Leukocyte Esterase Negative (Negative) U Hyaline Cast (Auto) NONE SEEN (0-2) /LPF Urine Microscopic RBC 0-2 (0-5) /HPF Urine Microscopic WBC 0-2 (0-5) /HPF Ur Epithelial Cells Rare (None Seen) /HPF Urine Bacteria None Seen (None Seen) /HPF Urine Culture Reflexed NO (NO) - Progress Progress: improved Progress Note: 07/30/25 14:17 Differential diagnosis: Acute pancreatitis/cholecystitis/gastritis/colitis/diverticulitis/pyelonephritis/urete ral stone 59 years old is evaluated in the ER for upper abdominal pain with nausea. She is given fluids and symptomatic treatment, on reevaluation she is feeling much better. Workup showed normal white count, unremarkable chemistries and no UTI. CT abdomen pelvis is negative for any acute intra-abdominal pelvic findings. I do not know the exact cause of her pain, could be related to adhesions from previous surgeries, recommended symptomatic/supportive care and outpatient follow-up. Discussed signs symptoms of worsening needing return to ER which she seems understanding. Stable for discharge Complexity of problems addressed: Moderate acute Complexity of data reviewed/analyzed: Moderate to extensive Risk of complication: Low Counseled pt/family regarding: lab results, diagnosis, need for follow-up, rad results Medical Desision Making - Diagnostic Testing Diagnostic test were ordered, analyzed, and reviewed by me: Yes Radiological Interpretation: Reviewed by me - Risk of complications The pt has a mod risk of morbidity or mortality based on: Need for prescription drug management - Departure Departure Disposition: Home Clinical Impression: Upper abdominal pain Condition: Stable Critical Care Time: No Referrals: ARANZA GERBER DO [Primary Care Provider, [facility]] - Follow up with PCP 1 day Instructions: Severe Abdominal Pain, Adult (DC) Additional Instructions: Take Tylenol as needed. Follow-up with primary care for reevaluation. Return to ER for any worsening.
[2024-12-05 12:10] LABS: BASOPHIL % 0.8 % (0.1-1.2); Basophil (Absolute #) 0.06 x10^3/uL (0.01-0.08); Eosinophil (Absolute #) 0.20 x10^3/uL (0.04-0.36); Hematocrit 50.4 % (34.1-44.9); Hemoglobin 16.8 g/dL (11.2-15.7); IMMATURE GRAN # 0.04 x10^3u/L (0.001-0.031); IMMATURE GRAN % 0.5 % (0.001-0.429); Lymphocyte (Absolute #) 1.72 x10^3/uL (1.18-3.74); Mean Corpuscular Hemoglobin 28.7 pg (25.6-32.2); Mean Corpuscular Hgb Concent. 33.3 g/dL (32.2-35.5); Monocyte (Absolute #) 0.55 x10^3/uL (0.24-0.86); NUCLEATED RBC # 0.00 x10^3u/L (0.00-0.012); NUCLEATED RBC % 0.0 % (0.00-0.2); Platelet Count 165 x10^3/uL (182-369); Red Blood Count 5.86 x10^6/uL (3.93-5.22); White Blood Count 7.6 x10^3/uL (3.98-10.04)
[2024-12-05] MEDS: SUBLIMAZE 100 MCG/2 ML IV ONE (12:11)
[2024-12-05 12:14] LABS: Glucose, Urine >=1000 mg/dL (Negative); Protein,Urine Dip Negative (Negative); RBC 0-2 /HPF (0-5); WBC 0-2 /HPF (0-5)
[2024-12-05 13:00] LABS: Calcium 9.2 mg/dL (8.4-10.2); Carbon Dioxide 23.0 mmol/L (22-30); Creatinine 1 0.76 mg/dL (0.52-1.04); EST GLOMERULAR FILTRATION RATE 89.7 ML/MIN; Glucose 134.0 mg/dL (74-106); Potassium 4.1 mmol/L (3.5-5.1); SGOT/AST 29.0 U/L (14-36); SGPT/ALT 32.0 U/L (0-35); Total Protein 6.9 g/dL (6.3-8.2)
--- NOTE | 2024-12-05 13:48 | XRAY ---
Indication: Periumbilical abdominal pain. Multiple contiguous axial images obtained through the abdomen and pelvis without contrast. Comparison: March 27, 2023 Lung bases again demonstrates a few tiny bilateral noncalcified micronodules favored to be benign given stability. Minimal bilateral dependent atelectasis. No infiltrate or effusion. Heart not enlarged. Stomach distended with food. Noncontrasted stomach and bowel loops appear nonobstructed. Stable small transverse duodenal diverticulum. Normal appendix. Again scattered descending and sigmoid diverticulosis. Spleen remains enlarged measuring 15.6 cm. No free fluid/air. Remaining liver, gallbladder, pancreas, spleen, adrenal glands, kidneys, ureters, bladder, and uterus are unremarkable for noncontrast exam. Again minimal aortoiliac calcifications without triple a. Osseous structures intact again with minimal/mild degenerative changes throughout spine and mild levoscoliosis centered at thoracolumbar junction. No ventral or inguinal hernias. Impression: Again chronic findings including benign bibasilar noncalcified micronodules, duodenal diverticulum, colonic diverticulosis, splenomegaly, arteriosclerotic disease, and chronic bony findings. No new/acute findings on this noncontrast exam.
[2024-12-05 14:29] VITALS: BP 134/86; PULSE 72; RESP 16; O2SAT 100
== END 2024-12-05 14:31 | disposition home or self-care (01) ==
LOC: ED 10:57
DX: R10.10 Upper abdominal pain, unspecified (principal); R10.33 Periumbilical pain; R11.0 Nausea; R19.7 Diarrhea, unspecified; E11.9 Type 2 diabetes mellitus without complications; Z79.4 Long term (current) use of insulin; Z79.84 Long term (current) use of oral hypoglycemic drugs; Z79.85 Long-term (current) use of injectable non-insulin antidiabetic drugs; Z79.899 Other long term (current) drug therapy

== ENCOUNTER 2025-01-17 08:51 | Emergency (ER) | payer OTHER ==
[2025-01-17 09:11] VITALS: PULSE 79; RESP 16; TEMP 97.3; O2SAT 96
--- NOTE | 2025-01-17 09:23 | ERPHSYRPT ---
- History of Present Illness Patient Subjective Stated Complaint: patient complains of pain in her neck rated at a 4 Triage Nursing Assessment: patient walks to the bed in no apparent distress. she is chatty and pleasant. She states she has had pain in the right side of her neck down into her shoulder for 2 months. She came in today becasue she is "tired of it" Denies pain, tingling and numbness in her hands and arms. She rates her pain at a 4. Physician History: Presents with neck pain, onset of symptoms about 2 months ago, she has been taking her regular home pain medication of oxycodone, normally she takes 1 a day but she has had to take 2 a day due to the pain in her neck, the pain medications prescribed for her low back, she does get interventional procedures for her low back, she Is scheduled for an epidural injection next week Timing/Duration: week(s) (8) Method of Injury: unknown Quality: aching, throbbing Back Pain Location: C-spine Severity of Pain-Max: moderate Severity of Pain-Current: mild Modifying Factors: Improves With: nothing Associated Symptoms: denies symptoms, No weakness Body Map: 1 - Area of pain Allergies/Adverse Reactions: metformin Adverse Reaction (Verified 01/17/25 09:12) Home Medications: Insulin Lispro [Admelog Solostar] 155 units SQ DAILY 06/18/22 [History] Dapagliflozin Propanediol [Farxiga] 10 mg PO DAILY 03/27/23 [History] Atorvastatin Calcium 20 mg PO DAILY 01/02/24 [History] Oxycodone HCl 5 mg Ir [Oxy-IR 5 MG] 5 mg PO BID 01/02/24 [History] Albuterol 8 gm Mdi Hfa [Ventolin Hfa MDI] 2 inh PO Q4H 04/29/24 [History] Aspirin EC 325 mg [Ecotrin 325 MG] 325 mg PO DAILY 04/29/24 [History] Docusate Sodium [Colace] 100 mg PO HS 04/29/24 [History] Fluticasone/Salmeterol 115/21 [Advair Hfa 115/21 Common canister*] 2 inh PO BID 04/29/24 [History] Pregabalin 50 mg [Lyrica 50MG] 50 mg PO TID 04/29/24 [History] Quetiapine Fumarate 25 mg [Seroquel 25 MG] 25 mg PO DAILY 04/29/24 [History] Tirzepatide [Mounjaro] 5 mg SQ WEEKLY 04/29/24 [History] Trazodone HCl 50 mg [Desyrel 50 mg] 50 mg PO HS 04/29/24 [History] Vibegron [Gemtesa] 75 mg PO DAILY 04/29/24 [History] PANTOPRAZOLE 40 mg Tablet [Protonix 40MG Tablet] 40 mg PO 01/17/25 [History] Hx Tetanus, Diphtheria Vaccination/Date Given: No Hx Influenza Vaccination/Date Given: No Hx Pneumococcal Vaccination/Date Given: No Travel Risk - International Travel Have you traveled outside of the country in past 3 weeks: No - Emerging Infectious Disease Are you exhibiting symptoms associated with any current EIDs: No Symptoms: Abdominal Pain - Past Medical History Pertinent Past Medical History: Yes Neurological History: No Pertinent History ENT History: Glaucoma Cardiac History: High Cholesterol Respiratory History: Asthma, COPD, Sleep Apnea Endocrine Medical History: Diabetes Type II, Hypothyroidism Musculoskeletal History: Arthritis GI Medical History: Diverticulosis, Pancreatitis History: No Pertinent History Psycho-Social History: Anxiety, Depression Female Reproductive Disorders: No Pertinent History Other Medical History: LOW THYROID. FATTY LIVER DZ, ENLARGED SPLEEN. - Past Surgical History Past Surgical History: Yes Cardiac: Cardiac Catheterization Genitourinary: Other Female Surgical History: Section, Other Other Surgical History: achilles tendon, kidney stone with stent (now removed), bladder sling, bilateral shoulder surgeries Significant Family History: no pertinent family hx - Social History Smoking Status: Former smoker Exposure to second hand smoke: Yes Drug Use: none - Social Determinants of Health Will the patient participate in the screening: Yes Do you worry about a steady place to live?: No Do you have any problems with any of the following?: No known problems In the past 12 months,have you had to go without utilities?: No Transportation Issues: No Has anyone in your support network made you feel unsafe?: No Have you or anyone in your house had to go w/o enough food: No - Nursing Vital Signs Nursing Vital Signs: Initial Vital Signs Temperature 97.3 F 01/17/25 09:01 Pulse Rate 79 01/17/25 09:01 Respiratory Rate 16 01/17/25 09:01 Blood Pressure 111/76 01/17/25 09:01 O2 Sat by Pulse Oximetry 96 01/17/25 09:01 Pain Scale Pain Intensity 4 - Physical Exam General Appearance: no apparent distress, alert Eye Exam: PERRL/EOMI, eyes nml inspection Ears, Nose, Throat Exam: normal ENT inspection Neck Exam: limited range of motion, other (Tenderness to right paraspinal musculature from C5-C7 on the right) Respiratory Exam: normal breath sounds, airway intact Cardiovascular Exam: regular rate/rhythm Gastrointestinal Exam: soft, normal bowel sounds Back Exam: other (Tenderness to the right trapezius, there is no muscle atrophy notedTo the trapezius, triceps, biceps, deltoid, forearm) Neurologic Exam: alert, oriented x 3, cooperative, 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, normal mood/affect Skin Exam: normal color, warm, dry SpO2 Interpretation: normal SpO2: 96 - Progress Progress Note: 01/17/25 09:28 Chart review, patient had CT scan cervical spine 06/02, She is currently taking oxycodone 5 mg 2 times a day for pain control, I recommended that she follow-up for outpatient physical therapy, will add topical lidocaine and topical nonsteroidal, Recommend she follow-up to Pain management is scheduled - Departure Departure Disposition: Home Clinical Impression: Cervical radicular pain Condition: Stable Critical Care Time: No Referrals: ARANZA GERBER DO [Primary Care Provider, [facility]] - Follow up/PCP as directed Instructions: Radiculopathy of the neck and back (including sciatica) Additional Instructions: Aspercreme(10% Trolamine salicylate) Apply to neck every 6 hours; Purchase at pharmacy no prescription needed; Follow-up with pain management as scheduled Prescriptions: Lidocaine HCl 5% Patch [Lidoderm Patch 5%] 1 patch TOP DAILY #10 patch Outpatient Orders: Physical Therapy Eval & Treat Facility: [facility]. Hosp, Location: PHYSICAL THERAPY
[2025-01-17 10:09] VITALS: BP 131/89
== END 2025-01-17 10:10 | disposition home or self-care (01) ==
LOC: ED 08:51
DX: M54.12 Radiculopathy, cervical region (principal); S16.1XXA Strain of muscle, fascia and tendon at neck level, initial encounter; E11.9 Type 2 diabetes mellitus without complications; Z79.891 Long term (current) use of opiate analgesic; Z79.4 Long term (current) use of insulin; Z79.84 Long term (current) use of oral hypoglycemic drugs; Z79.85 Long-term (current) use of injectable non-insulin antidiabetic drugs; Z79.899 Other long term (current) drug therapy

== ENCOUNTER 2025-02-01 14:23 | Emergency (ER) | payer OTHER ==
[2025-02-01 14:35] VITALS: BP 147/67; TEMP 96.4; O2SAT 97
[2025-02-01] MEDS ORDERED: BABY ASPIRIN 81 MG CHEW ONE (14:51)
[2025-02-01] MEDS: BABY ASPIRIN 81 MG CHEW PO ONE (14:52)
[2025-02-01 14:54] LABS: BASOPHIL % 0.6 % (0.1-1.2); Basophil (Absolute #) 0.04 x10^3/uL (0.01-0.08); Eosinophil (Absolute #) 0.22 x10^3/uL (0.04-0.36); Hematocrit 45.8 % (34.1-44.9); Hemoglobin 14.9 g/dL (11.2-15.7); IMMATURE GRAN # 0.04 x10^3u/L (0.001-0.031); IMMATURE GRAN % 0.6 % (0.001-0.429); Lymphocyte (Absolute #) 1.54 x10^3/uL (1.18-3.74); Mean Corpuscular Hemoglobin 27.5 pg (25.6-32.2); Mean Corpuscular Hgb Concent. 32.5 g/dL (32.2-35.5); Monocyte (Absolute #) 0.59 x10^3/uL (0.24-0.86); NUCLEATED RBC # 0.00 x10^3u/L (0.00-0.012); NUCLEATED RBC % 0.0 % (0.00-0.2); Platelet Count 166 x10^3/uL (182-369); Red Blood Count 5.41 x10^6/uL (3.93-5.22); White Blood Count 6.6 x10^3/uL (3.98-10.04)
--- NOTE | 2025-02-01 14:56 | ERPHSYRPT ---
- History of Present Illness Time Seen by Provider: 02/01/25 14:29 Patient Subjective Stated Complaint: Pt c/o of lightning like pain in her left chest that radiates down her left arm Triage Nursing Assessment: Pt brought to the ER by her friend, hypertensive, rates chest discomfort as 4/10, pulses normal, skin n/w/d, reports that the pain in her chest feels like a lightning stab and then goes away, no difficulty breathing, doesn't appear to be in any distress Physician History: Brought to emergency department by her friend, She developed chest pain a couple days ago but symptoms were worse today, sharp in nature, blood pressure has been elevated, she had a cardiac catheterization in 2009 which revealed 30% disease medically managed, denies SOB, DM2 Timing/Duration: day(s) (2) Activities at Onset: emotional stress Quality: sharpness Location: central Chest Pain Radiation: no radiation Severity of Pain-Max: moderate Severity of Pain-Current: mild Modifying Factors: Improves With: nothing Associated Symptoms: denies symptoms Prior Chest Pain/Cardiac Workup: cardiac cath Nitro Today/Relief: no nitro taken today Aspirin Treatment Today: no aspirin today Allergies/Adverse Reactions: [facility] [[facility] Adverse Reaction (Verified 02/01/25 14:36) metformin Adverse Reaction (Verified 02/01/25 14:35) Home Medications: Insulin Lispro [Admelog Solostar] 155 units SQ DAILY 06/18/22 [History] Dapagliflozin Propanediol [Farxiga] 10 mg PO DAILY 03/27/23 [History] Atorvastatin Calcium 20 mg PO DAILY 01/02/24 [History] Oxycodone HCl 5 mg Ir [Oxy-IR 5 MG] 5 mg PO BID 01/02/24 [History] Albuterol 8 gm Mdi Hfa [Ventolin Hfa MDI] 2 inh PO Q4H 04/29/24 [History] Aspirin EC 325 mg [Ecotrin 325 MG] 81 mg PO DAILY 04/29/24 [History] Docusate Sodium [Colace] 100 mg PO HS 04/29/24 [History] Fluticasone/Salmeterol 115/21 [Advair Hfa 115/21 Common canister*] 2 inh PO BID 04/29/24 [History] Pregabalin 50 mg [Lyrica 50MG] 150 mg PO TID 04/29/24 [History] Quetiapine Fumarate 25 mg [Seroquel 25 MG] 25 mg PO DAILY 04/29/24 [History] Tirzepatide [Mounjaro] 2.5 mg SQ WEEKLY 04/29/24 [History] Trazodone HCl 50 mg [Desyrel 50 mg] 50 mg PO HS 04/29/24 [History] Vibegron [Gemtesa] 75 mg PO DAILY 04/29/24 [History] PANTOPRAZOLE 40 mg Tablet [Protonix 40MG Tablet] 40 mg PO DAILY 01/17/25 [History] Hx Tetanus, Diphtheria Vaccination/Date Given: No Hx Influenza Vaccination/Date Given: No Hx Pneumococcal Vaccination/Date Given: No Travel Risk - International Travel Have you traveled outside of the country in past 3 weeks: No - Emerging Infectious Disease Are you exhibiting symptoms associated with any current EIDs: No Symptoms: Abdominal Pain - Past Medical History Pertinent Past Medical History: Yes Neurological History: No Pertinent History ENT History: Glaucoma Cardiac History: High Cholesterol Respiratory History: Asthma, COPD, Sleep Apnea Endocrine Medical History: Diabetes Type II, Hypothyroidism Musculoskeletal History: Arthritis GI Medical History: Diverticulosis, Pancreatitis History: No Pertinent History Psycho-Social History: Anxiety, Depression Female Reproductive Disorders: No Pertinent History Other Medical History: LOW THYROID. FATTY LIVER DZ, ENLARGED SPLEEN. - Past Surgical History Past Surgical History: Yes Cardiac: Cardiac Catheterization Genitourinary: Other Female Surgical History: Section, Other Other Surgical History: achilles tendon, kidney stone with stent (now removed), bladder sling, bilateral shoulder surgeries Significant Family History: no pertinent family hx - Social History Smoking Status: Former smoker Exposure to second hand smoke: Yes Drug Use: none - Social Determinants of Health Will the patient participate in the screening: Yes Do you worry about a steady place to live?: No Do you have any problems with any of the following?: No known problems In the past 12 months,have you had to go without utilities?: No Transportation Issues: No Has anyone in your support network made you feel unsafe?: No Have you or anyone in your house had to go w/o enough food: No - Nursing Vital Signs Nursing Vital Signs: Initial Vital Signs Temperature 96.4 F 02/01/25 14:27 Pulse Rate 86 02/01/25 14:27 Blood Pressure 147/67 02/01/25 14:27 O2 Sat by Pulse Oximetry 97 02/01/25 14:27 Pain Scale Pain Intensity 4 - Physical Exam General Appearance: no apparent distress, alert Eye Exam: PERRL/EOMI, eyes nml inspection Ears, Nose, Throat Exam: normal ENT inspection, pharynx normal, moist mucous membranes Neck Exam: normal inspection, non-tender, supple, full range of motion Respiratory Exam: normal breath sounds, lungs clear Cardiovascular Exam: regular rate/rhythm, normal heart sounds, normal peripheral pulses Gastrointestinal/Abdomen Exam: soft, normal bowel sounds Back Exam: normal inspection, normal range of motion Extremity Exam: normal inspection, normal range of motion Neurologic Exam: alert, oriented x 3, cooperative, drupal developer II-XII nml as tested, normal mood/affect Skin Exam: normal color, warm, dry SpO2 Interpretation: normal SpO2: 97 - Course EKG Interpreted by Me: RATE (84), Sinus Rhythm, NORMAL AXIS, NORMAL INTERVALS, NORMAL QRS, NORMAL ST-T - Radiology Exams Chest X-ray Interpretation: Interpreted by me, No Pneumonia, Nml Alignment, Nml Heart Size, No Infiltrates, Nml Mediastinum, Nml Soft Tissues Ordered Tests: Active Orders 24 hr Category Date Time Status IV Insertion STAT Care 02/01/25 14:40 Active CHEST 1 VIEW (PORTABLE) Stat Exams 02/01/25 14:44 Completed CBC W DIFF Stat Lab 02/01/25 14:50 Completed CMP Stat Lab 02/01/25 14:50 Completed MAGNESIUM Stat Lab 02/01/25 14:50 Completed TROPONIN Q4H Lab 02/01/25 14:50 Completed TROPONIN Q4H Lab 02/01/25 18:45 Ordered TROPONIN Q4H Lab 02/01/25 22:45 Ordered Medication Summary Discontinued Medications Generic Name Dose Route Start Last Admin Trade Name Freq PRN Reason Stop Dose Admin Aspirin 324 mg 02/01/25 14:40 02/01/25 14:52 Aspirin 81 Mg Tab.Chew PO 02/01/25 14:41 324 mg STAT ONE Administration Aspirin Confirm 02/01/25 14:51 Aspirin 81 Mg Tab.Chew Administered 02/01/25 14:52 Dose 324 mg .ROUTE .STK-MED ONE Lab/Rad Data: Laboratory Result Diagrams 02/01/25 14:50 02/01/25 14:50 Laboratory Results 02/01/25 02/01/25 02/01/25 Range/Units 14:50 14:50 14:50 WBC 6.6 (3.98-10.04) x10^3/uL RBC 5.41 H (3.93-5.22) x10^6/uL Hgb 14.9 (11.2-15.7) g/dL Hct 45.8 H (34.1-44.9) % MCV 84.7 (79.4-94.8) fL MCH 27.5 (25.6-32.2) pg MCHC 32.5 (32.2-35.5) g/dL RDW 13.8 (11.7-14.4) % Plt Count 166 L (182-369) x10^3/uL MPV 12.0 (9.4-12.3) fL Gran % 63.1 (34.0-71.1) % Immature Gran % (Auto) 0.6 H (0.001-0.429) % Nucleat RBC Rel Count 0.0 (0.00-0.2) % Eos # (Auto) 0.22 (0.04-0.36) x10^3/uL Immature Gran # (Auto) 0.04 H (0.001-0.031) x10^3u/L Absolute Lymphs (auto) 1.54 (1.18-3.74) x10^3/uL Absolute Monos (auto) 0.59 (0.24-0.86) x10^3/uL Absolute Nucleated RBC 0.00 (0.00-0.012) x10^3u/L Lymphocytes % 23.4 (19.3-51.7) % Monocytes % 9.0 (4.7-12.5) % Eosinophils % 3.3 (0.7-5.8) % Basophils % 0.6 (0.1-1.2) % Absolute Granulocytes 4.15 (1.56-6.13) x10^3/uL Basophils # 0.04 (0.01-0.08) x10^3/uL Sodium 139 (135-145) mmol/L Potassium 3.6 (3.5-5.1) mmol/L Chloride 105 (98-107) mmol/L Carbon Dioxide 24 (22-30) mmol/L Anion Gap 13.4 (5-15) MEQ/L BUN 7 (7-17) mg/dL Creatinine 0.85 (0.52-1.04) mg/dL Estimated GFR 78.4 ML/MIN Glucose 188 H (74-106) mg/dL Calcium 8.9 (8.4-10.2) mg/dL Magnesium 1.6 (1.6-2.3) mg/dL Total Bilirubin 0.80 (0.2-1.3) mg/dL AST 41 H (14-36) U/L ALT 44 H (0-35) U/L Alkaline Phosphatase 94 (38-126) U/L Troponin I < 0.012 (0.000-0.033) ng/mL Serum Total Protein 7.1 (6.3-8.2) g/dL Albumin 4.1 (3.5-5.0) g/dL - Progress Progress Note: 02/01/25 16:06 Discussed results, recommend outpatient follow-up and treatment - Departure Departure Disposition: Home Clinical Impression: Chest wall pain Condition: Stable Critical Care Time: No Referrals: ARANZA GERBER DO [Primary Care Provider, [facility]] - Follow up with PCP 5 days Instructions: Costochondritis Additional Instructions: Continue home medications Prescriptions: Lidocaine HCl 5% Patch [Lidoderm Patch 5%] 1 patch TOP DAILY PRN #20 patch PRN Reason: Pain
[2025-02-01 15:18] LABS: Calcium 8.9 mg/dL (8.4-10.2); Carbon Dioxide 24.0 mmol/L (22-30); Creatinine 1 0.85 mg/dL (0.52-1.04); EST GLOMERULAR FILTRATION RATE 78.4 ML/MIN; Glucose 188.0 mg/dL (74-106); Potassium 3.6 mmol/L (3.5-5.1); SGOT/AST 41.0 U/L (14-36); SGPT/ALT 44.0 U/L (0-35); Total Protein 7.1 g/dL (6.3-8.2)
--- NOTE | 2025-02-01 15:53 | XRAY ---
CLINICAL HISTORY: chest pain COMPARISON: 08/22/2024 TECHNIQUE: An X-ray image of the chest is obtained in AP projection. FINDINGS: Pulmonary Parenchyma: No pulmonary nodules are identified. There is no consolidation or collapse. There is no evidence of pleural effusion or pleural thickening. Heart and Mediastinum: Heart size and shape are normal. There is no mediastinal widening or masses. There is no hilar or mediastinal lymphadenopathy. Bony Thorax: The bony thorax appears intact without fractures or deformities. Soft Tissues: Soft tissues overlying the chest wall are unremarkable. IMPRESSION: No acute cardiopulmonary abnormalities are identified. Findings are stable. Electronically Signed by: Tariq Bruno MD. (02/01/2025 15:51:53 EDT)
[2025-02-01 16:16] VITALS: PULSE 80; RESP 17
== END 2025-02-01 16:30 | disposition home or self-care (01) ==
LOC: ED 14:23
DX: R07.89 Other chest pain (principal); E11.9 Type 2 diabetes mellitus without complications; Z79.4 Long term (current) use of insulin; Z79.84 Long term (current) use of oral hypoglycemic drugs; Z79.85 Long-term (current) use of injectable non-insulin antidiabetic drugs; Z79.899 Other long term (current) drug therapy

== ENCOUNTER 2025-03-25 23:01 | Inpatient (IN) | payer OTHER ==
--- NOTE | 2025-03-25 23:22 | ERPHSYRPT ---
- History of Present Illness Time Seen by Provider: 03/25/25 23:04 Source: patient Exam Limitations: no limitations Patient Subjective Stated Complaint: pt reports body aches, headache, intermittent cough, fever, congestion and drainage beginning this evening. Triage Nursing Assessment: pt is aox3, pupils perrl, afebrile, resps easy and non labored, cap refill < 3 seconds, radial pulses strong and equal, pt abd soft non tender bowel sounds present, pt skin pink warm dry. Physician History: 59 yr F with hx of DM, HTN, and COPD presenting with body aches and abdominal discomfort. States that she started having body aches around 7p while laying in bed at home. She complains of body aches, generalized malaise, and increased cough/sputum production. She also complains of several days of crampy L sided abdominal discomfort associated with frequent small bowel movements. Bowel movements are nonbloody. No associated nausea, vomiting, dysuria, flank pain, or chills. No known sick contacts Allergies/Adverse Reactions: cariprazine [From [facility]] Adverse Reaction (Verified 03/25/25 23:16) metformin Adverse Reaction (Verified 03/25/25 23:16) Home Medications: Insulin Lispro [Admelog Solostar] 155 units SQ DAILY 06/18/22 [History] Atorvastatin Calcium 20 mg PO DAILY 01/02/24 [History] Oxycodone HCl 5 mg Ir [Oxy-IR 5 MG] 5 mg PO BID 01/02/24 [History] Albuterol 8 gm Mdi Hfa [Ventolin Hfa MDI] 2 inh PO Q4H 04/29/24 [History] Aspirin EC 325 mg [Ecotrin 325 MG] 81 mg PO DAILY 04/29/24 [History] Docusate Sodium [Colace] 100 mg PO HS 04/29/24 [History] Fluticasone/Salmeterol 115/21 [Advair Hfa 115/21 Common canister*] 2 inh PO BID 04/29/24 [History] Pregabalin 50 mg [Lyrica 50MG] 150 mg PO TID 04/29/24 [History] Quetiapine Fumarate 25 mg [Seroquel 25 MG] 25 mg PO DAILY 04/29/24 [History] Tirzepatide [Mounjaro] 2.5 mg SQ WEEKLY 04/29/24 [History] Trazodone HCl 50 mg [Desyrel 50 mg] 50 mg PO HS 04/29/24 [History] Vibegron [Gemtesa] 75 mg PO DAILY 04/29/24 [History] PANTOPRAZOLE 40 mg Tablet [Protonix 40MG Tablet] 40 mg PO DAILY 01/17/25 [History] Hx Tetanus, Diphtheria Vaccination/Date Given: Yes Hx Influenza Vaccination/Date Given: Yes Hx Pneumococcal Vaccination/Date Given: Yes Immunizations Up to Date: Yes Travel Risk - International Travel Have you traveled outside of the country in past 3 weeks: No - Emerging Infectious Disease Are you exhibiting symptoms associated with any current EIDs: No Symptoms: Abdominal Pain - Past Medical History Pertinent Past Medical History: Yes (See HPI) Neurological History: No Pertinent History ENT History: Glaucoma Cardiac History: High Cholesterol Respiratory History: Asthma, COPD, Sleep Apnea Endocrine Medical History: Diabetes Type II, Hypothyroidism Musculoskeletal History: Arthritis GI Medical History: Diverticulosis, Pancreatitis History: No Pertinent History Psycho-Social History: Anxiety, Depression Female Reproductive Disorders: No Pertinent History Other Medical History: LOW THYROID. FATTY LIVER DZ, ENLARGED SPLEEN. - Past Surgical History Past Surgical History: Yes Cardiac: Cardiac Catheterization Genitourinary: Other Female Surgical History: Section, Other Other Surgical History: achilles tendon, kidney stone with stent (now removed), bladder sling, bilateral shoulder surgeries Significant Family History: no pertinent family hx - Social History Smoking Status: Former smoker Exposure to second hand smoke: Yes Drug Use: none - Social Determinants of Health Will the patient participate in the screening: Yes Do you worry about a steady place to live?: No Do you have any problems with any of the following?: No known problems In the past 12 months,have you had to go without utilities?: No Transportation Issues: No Has anyone in your support network made you feel unsafe?: No Have you or anyone in your house had to go w/o enough food: No - Nursing Vital Signs Nursing Vital Signs: Initial Vital Signs Temperature 98.4 F 03/25/25 23:07 Pulse Rate 85 03/25/25 23:07 Respiratory Rate 19 03/25/25 23:07 Blood Pressure 128/85 03/25/25 23:07 O2 Sat by Pulse Oximetry 96 03/25/25 23:07 Pain Scale Pain Intensity 6 - Physical Exam General Appearance: no apparent distress SpO2 Interpretation: normal SpO2: 96 Comments: 03/26/25 00:54 General: Not in acute distress HEENT: NCAT CV: Ns1/s2, wwp Respiratory: Normal work of breathing, CTAB Abdomen: soft, generalized tenderness without rebound or guarding MSK: No gross bony deformity Skin: Normal cap refill Neuro: Alert and oriented x 3, no facial droop, normal speech, JANIS Psych: Cooperative, speech nonpressured - Radiology Exams Chest X-ray Interpretation: Other (No obvious consolidation or pulmonary opacity.) Ordered Tests: Active Orders 24 hr Category Date Time Status Up Ad Maddy ROUTINE Activity 03/26/25 02:18 Active Admit as Inpatient ROUTINE Care 03/26/25 02:16 Active Call Admit Doctor for Orders ON ADMISSION Care 03/26/25 02:16 Active Scarf And Anneal Operator ROUTINE Care 03/26/25 02:18 Active Code Status Order ROUTINE Care 03/26/25 02:16 Active Fall Protocol ROUTINE Care 03/26/25 02:18 Active IV Insertion STAT Care 03/26/25 00:25 Active POCT Glucose Check ACHS Care 03/26/25 02:16 Active Clear Liquid Diet 03/26/25 Breakfast Active ABDOMEN AND PELVIS W CONTRAST [CT] Stat Exams 03/26/25 00:16 Completed CHEST 2 VIEWS (PA AND LAT) Stat Exams 03/26/25 00:00 Taken CBC W DIFF Stat Lab 03/25/25 23:50 Completed CMP Stat Lab 03/25/25 23:50 Completed UA W/RFX UR CULTURE Stat Lab 03/25/25 23:39 Completed Pulse Oximetry CONTINUOUS RT 03/26/25 02:18 Active Respiratory Therapy Assessment DAILY RT 03/26/25 00:44 Active Medication Summary Generic Name Dose Route Start Last Admin Trade Name Freq PRN Reason Stop Dose Admin Piperacillin Sod/Tazobactam 100 mls @ 200 mls/hr 03/26/25 01:58 03/26/25 02:19 Sod 4.5 gm/ Sodium Chloride IV 03/26/25 02:27 200 mls/hr STAT STA 200 mls/hr Administration Discontinued Medications Generic Name Dose Route Start Last Admin Trade Name Truong PRN Reason Stop Dose Admin Albuterol/Ipratropium 6 ml 03/25/25 23:56 03/26/25 00:43 Ipratropium/Albuterol Sulfate 3 Ml Ampul.Neb IH 03/25/25 23:57 6 ml STAT ONE Administration Albuterol/Ipratropium Confirm 03/26/25 00:00 Ipratropium/Albuterol Sulfate 3 Ml Ampul.Neb Administered 03/26/25 00:01 Dose 3 ml IH .STK-MED ONE Sodium Chloride 1,000 mls @ 999 mls/hr 03/26/25 00:11 03/26/25 01:26 Sodium Chloride 0.9% 1000 Ml IV 03/26/25 01:11 Infused .Q1H1M STA Infusion Sodium Chloride Confirm 03/26/25 00:26 Sodium Chloride 0.9% 1000 Ml Administered 03/26/25 00:27 Dose 1,000 mls @ ud .ROUTE .STK-MED ONE Sodium Chloride Confirm 03/26/25 02:12 Sodium Chloride 0.9% Administered 03/26/25 02:13 Dose 100 mls @ ud .ROUTE .STK-MED ONE Ketorolac Tromethamine 30 mg 03/25/25 23:40 03/25/25 23:49 Ketorolac Tromethamine 30 Mg/Ml Inj IM 03/25/25 23:41 30 mg STAT ONE Administration Ketorolac Tromethamine Confirm 03/25/25 23:46 Ketorolac Tromethamine 30 Mg/Ml Inj Administered 03/25/25 23:47 Dose 30 mg .ROUTE .STK-MED ONE Oxycodone/Acetaminophen 1 tab 03/26/25 02:05 03/26/25 02:20 Oxycodone Hcl/Apap 5 Mg/325 Mg Tablet PO 03/26/25 02:06 1 tab STAT STA Administration Oxycodone/Acetaminophen Confirm 03/26/25 02:12 Oxycodone Hcl/Apap 5 Mg/325 Mg Tablet Administered 03/26/25 02:13 Dose 1 tab .ROUTE .STK-MED ONE Piperacillin Sod/Tazobactam Sod Confirm 03/26/25 02:12 Piperacillin/Tazobactam Sodium 4.5 Gm Vial Administered 03/26/25 02:13 Dose 4.5 gm IV .STK-MED ONE Lab/Rad Data: Laboratory Result Diagrams 03/25/25 23:50 03/25/25 23:50 Laboratory Results 03/25/25 03/25/25 03/25/25 Range/Units 23:50 23:50 23:40 WBC 13.0 H (3.98-10.04) x10^3/uL RBC 5.75 H (3.93-5.22) x10^6/uL Hgb 15.6 (11.2-15.7) g/dL Hct 47.8 H (34.1-44.9) % MCV 83.1 (79.4-94.8) fL MCH 27.1 (25.6-32.2) pg MCHC 32.6 (32.2-35.5) g/dL RDW 13.8 (11.7-14.4) % Plt Count 172 L (182-369) x10^3/uL MPV 11.5 (9.4-12.3) fL Gran % 75.9 H (34.0-71.1) % Immature Gran % (Auto) 0.3 (0.001-0.429) % Nucleat RBC Rel Count 0.0 (0.00-0.2) % Eos # (Auto) 0.19 (0.04-0.36) x10^3/uL Immature Gran # (Auto) 0.04 H (0.001-0.031) x10^3u/L Absolute Lymphs (auto) 1.96 (1.18-3.74) x10^3/uL Absolute Monos (auto) 0.87 H (0.24-0.86) x10^3/uL Absolute Nucleated RBC 0.00 (0.00-0.012) x10^3u/L Lymphocytes % 15.1 L (19.3-51.7) % Monocytes % 6.7 (4.7-12.5) % Eosinophils % 1.5 (0.7-5.8) % Basophils % 0.5 (0.1-1.2) % Absolute Granulocytes 9.83 H (1.56-6.13) x10^3/uL Basophils # 0.07 (0.01-0.08) x10^3/uL Sodium 134 L (135-145) mmol/L Potassium 3.8 (3.5-5.1) mmol/L Chloride 100 (98-107) mmol/L Carbon Dioxide 19 L (22-30) mmol/L Anion Gap 17.7 H (5-15) MEQ/L BUN 11 (7-17) mg/dL Creatinine 0.88 (0.52-1.04) mg/dL Estimated GFR 75.2 ML/MIN Glucose 147 H (74-106) mg/dL Calcium 9.3 (8.4-10.2) mg/dL Total Bilirubin 0.70 (0.2-1.3) mg/dL AST 40 H (14-36) U/L ALT 45 H (0-35) U/L Alkaline Phosphatase 88 (38-126) U/L Serum Total Protein 7.6 (6.3-8.2) g/dL Albumin 4.5 (3.5-5.0) g/dL Urine Color (Yellow) Urine Appearance (Clear) Urine pH (4.6-8.0) Ur Specific Ulysses (1.005-1.030) Urine Protein (Negative) Urine Glucose (UA) (Negative) mg/dL Urine Ketones (Negative) Urine Blood (Negative) Urine Nitrite (Negative) Urine Bilirubin (Negative) Urine Urobilinogen (0.2) mg/dL Ur Leukocyte Esterase (Negative) U Hyaline Cast (Auto) (0-2) /LPF Urine Microscopic RBC (0-5) /HPF Urine Microscopic WBC (0-5) /HPF Ur Epithelial Cells (None Seen) /HPF Urine Bacteria (None Seen) /HPF Urine Culture Reflexed (NO) Influenza Type A Ag NEGATIVE (NEGATIVE) Influenza Type B Ag NEGATIVE (NEGATIVE) RSV (PCR) NEGATIVE (NEGATIVE) SARS-CoV-2 (PCR) NEGATIVE (NEGATIVE) 03/25/25 Range/Units 23:39 WBC (3.98-10.04) x10^3/uL RBC (3.93-5.22) x10^6/uL Hgb (11.2-15.7) g/dL Hct (34.1-44.9) % MCV (79.4-94.8) fL MCH (25.6-32.2) pg MCHC (32.2-35.5) g/dL RDW (11.7-14.4) % Plt Count (182-369) x10^3/uL MPV (9.4-12.3) fL Gran % (34.0-71.1) % Immature Gran % (Auto) (0.001-0.429) % Nucleat RBC Rel Count (0.00-0.2) % Eos # (Auto) (0.04-0.36) x10^3/uL Immature Gran # (Auto) (0.001-0.031) x10^3u/L Absolute Lymphs (auto) (1.18-3.74) x10^3/uL Absolute Monos (auto) (0.24-0.86) x10^3/uL Absolute Nucleated RBC (0.00-0.012) x10^3u/L Lymphocytes % (19.3-51.7) % Monocytes % (4.7-12.5) % Eosinophils % (0.7-5.8) % Basophils % (0.1-1.2) % Absolute Granulocytes (1.56-6.13) x10^3/uL Basophils # (0.01-0.08) x10^3/uL Sodium (135-145) mmol/L Potassium (3.5-5.1) mmol/L Chloride (98-107) mmol/L Carbon Dioxide (22-30) mmol/L Anion Gap (5-15) MEQ/L BUN (7-17) mg/dL Creatinine (0.52-1.04) mg/dL Estimated GFR ML/MIN Glucose (74-106) mg/dL Calcium (8.4-10.2) mg/dL Total Bilirubin (0.2-1.3) mg/dL AST (14-36) U/L ALT (0-35) U/L Alkaline Phosphatase (38-126) U/L Serum Total Protein (6.3-8.2) g/dL Albumin (3.5-5.0) g/dL Urine Color Yellow (Yellow) Urine Appearance Clear (Clear) Urine pH 5.5 (4.6-8.0) Ur Specific Ulysses 1.020 (1.005-1.030) Urine Protein Negative (Negative) Urine Glucose (UA) >=1000 A (Negative) mg/dL Urine Ketones Negative (Negative) Urine Blood Negative (Negative) Urine Nitrite Negative (Negative) Urine Bilirubin Negative (Negative) Urine Urobilinogen 1.0 A (0.2) mg/dL Ur Leukocyte Esterase Negative (Negative) U Hyaline Cast (Auto) NONE SEEN (0-2) /LPF Urine Microscopic RBC 0-2 (0-5) /HPF Urine Microscopic WBC 0-2 (0-5) /HPF Ur Epithelial Cells Rare (None Seen) /HPF Urine Bacteria None Seen (None Seen) /HPF Urine Culture Reflexed NO (NO) Influenza Type A Ag (NEGATIVE) Influenza Type B Ag (NEGATIVE) RSV (PCR) (NEGATIVE) SARS-CoV-2 (PCR) (NEGATIVE) - Progress Progress Note: 03/26/25 01:02 Patient is hemodynamically stable and not in acute distress. Vitals reassuring. Exam with some mild generalized amber tenderness however she is not peritonitic. For her respiratory symptoms, suspect mild COPD exacerbation and will treat with nebs. X-ray chest without evidence of acute pneumonia. Her viral swabs and UA are negative. In regards to her abdominal pain, differential includes diverticulitis given her leukocytosis and diarrhea. Awaiting CT scan of abdomen pelvis. Dispo pending CT abdomen and pelvis with findings concerning for diverticulitis with 12 mm abscess. Will cover with empiric Zosyn, control pain, admit. Discussed case with hospitalist Dr. Hunt who accepts admission and recommends general surgery consult. Awaiting callback from Dr. Roel Mckeon Called back by Dr. Mckeon who accepts consult and will evaluate patient. Discussed with .: Swathi Medellin (Surgeon) Will see patient in: hospital (full admit) Counseled pt/family regarding: lab results, diagnosis - Departure Departure Disposition: In-patient Admission Clinical Impression: Diverticulitis of large intestine with abscess Condition: Stable Critical Care Time: No Referrals: ARANZA GERBER DO [Primary Care Provider, [facility]] - Follow up/PCP as directed
[2025-03-25] MEDS ORDERED: TORAdol 30 mg Injection ONE (23:46)
[2025-03-25] MEDS: TORAdol 30 mg Injection IM ONE (23:49)
[2025-03-25 23:51] LABS: Glucose, Urine >=1000 mg/dL (Negative); Protein,Urine Dip Negative (Negative); RBC 0-2 /HPF (0-5); WBC 0-2 /HPF (0-5)
[2025-03-25 23:56] LABS: BASOPHIL % 0.5 % (0.1-1.2); Basophil (Absolute #) 0.07 x10^3/uL (0.01-0.08); Eosinophil (Absolute #) 0.19 x10^3/uL (0.04-0.36); Hematocrit 47.8 % (34.1-44.9); Hemoglobin 15.6 g/dL (11.2-15.7); IMMATURE GRAN # 0.04 x10^3u/L (0.001-0.031); IMMATURE GRAN % 0.3 % (0.001-0.429); Lymphocyte (Absolute #) 1.96 x10^3/uL (1.18-3.74); Mean Corpuscular Hemoglobin 27.1 pg (25.6-32.2); Mean Corpuscular Hgb Concent. 32.6 g/dL (32.2-35.5); Monocyte (Absolute #) 0.87 x10^3/uL (0.24-0.86); NUCLEATED RBC # 0.00 x10^3u/L (0.00-0.012); NUCLEATED RBC % 0.0 % (0.00-0.2); Platelet Count 172 x10^3/uL (182-369); Red Blood Count 5.75 x10^6/uL (3.93-5.22); White Blood Count 13.0 x10^3/uL (3.98-10.04)
[2025-03-26] MEDS ORDERED: DUONEB 0.5-3 MG/3 ml Neb IH ONE
[2025-03-26 00:09] LABS: Calcium 9.3 mg/dL (8.4-10.2); Carbon Dioxide 19.0 mmol/L (22-30); Creatinine 1 0.88 mg/dL (0.52-1.04); EST GLOMERULAR FILTRATION RATE 75.2 ML/MIN; Glucose 147.0 mg/dL (74-106); Potassium 3.8 mmol/L (3.5-5.1); SGOT/AST 40.0 U/L (14-36); SGPT/ALT 45.0 U/L (0-35); Total Protein 7.6 g/dL (6.3-8.2)
[2025-03-26 00:22] LABS: INFLUENZA A NEGATIVE (NEGATIVE); INFLUENZA B NEGATIVE (NEGATIVE); RESPIRATORY SYNCTIAL VIRUS NEGATIVE (NEGATIVE); SARS-CoV-2 Xpert Express NEGATIVE (NEGATIVE)
[2025-03-26] MEDS: DUONEB 0.5-3 MG/3 ml Neb IH ONE (00:43)
--- NOTE | 2025-03-26 01:54 | XRAY ---
CLINICAL HISTORY: abd pain and diarrhea. R/o divertic COMPARISON: 14:55:54 [employer] . TECHNIQUE: Contiguous axial images were obtained from the level of the diaphragm to the pubic symphysis with intravenous contrast. Coronal and sagittal reconstructions were likewise performed and indicated to increase the sensitivity for detecting clinically relevant pathology. If IV contrast material had not been administered, the likelihood of detecting abnormalities relevant to the patient's condition would have been substantially decreased. CT scan was performed according to ALARA (as low as reasonably achievable). FINDINGS: The visualized lung bases are clear. The liver is normal in size and reduced attenuation. No focal liver lesions are seen. There is no intra or extrahepatic biliary ductal dilatation. Hepatic vasculature is patent. The gallbladder is present. Stable duodenal diverticulum. The spleen, pancreas, and adrenal glands are unremarkable. The kidneys are normal in size and attenuation. There is no hydronephrosis or perinephric fat stranding. No renal calculi or renal masses are identified. The ureters are normal in caliber and no ureteral calculi are seen. The bladder is normal in contour. Pelvic viscera are unremarkable. No evidence of bowel obstruction is identified. No imaging evidence of appendicitis. Abdominal and pelvic vasculature is patent. No adenopathy or fluid collections are seen. No aggressive appearing osseous lesions are identified. Multiple small descending and sigmoid colonic diverticuli with Mild inflammatory wall thickening with adjacent fat stranding is noted involving proximal sigmoid colon - suggest possibility of diverticulitis. Evidence of focal (12 x 12 mm sized) peripherally enhancing hypodense collection is noted involving submucosal region of inflamed segment - possibility of focal abscess formation likely. IMPRESSION: 1. Multiple small descending and sigmoid colonic diverticuli with Mild inflammatory wall thickening with adjacent fat stranding is noted involving proximal sigmoid colon. Evidence of focal (12 x 12 mm sized) peripherally enhancing hypodense collection is noted involving submucosal region of inflamed segment - possibility of focal abscess formation with acute diverticulitis-new finding. 2. Hepatic steatosis.-stable. Electronically Signed by: Stan Fernando MD. (03/26/2025 01:53:25 EST)
[2025-03-26] MEDS ORDERED: PIPERACILLIN/TAZOBACTAM IV ONE (02:12)
[2025-03-26] MEDS ORDERED: PERCOCET TABLET 5/325MG ONE (02:12)
[2025-03-26] MEDS: PERCOCET TABLET 5/325MG PO STA (02:20)
[2025-03-26] MEDS ORDERED: NON-FORMULARY ITEM (Semaglutide [Ozempic] 0.25 MG/0.368 ML Pen.Injctr) SQ SCH (03:00)
[2025-03-26] MEDS ORDERED: FEVERALL 650 MG PR PRN (03:04)
--- NOTE | 2025-03-26 03:23 | PCM.HP ---
History of Present Illness - Chief Complaint Chief Complaint: Diverticulitis Date: 03/26/25 History of Present Illness: is a 59 year old female with a history of DM (uses an insulin pump), HTN, bladder dysfunction, palpitations (on beta fabian), and COPD who presented to the ED with body aches and right sided abdominal discomfort. She started having body aches around 7p while laying in bed at home, and also reported generalized malaise, and increased cough/sputum production. She also complains of several days of crampy left sided abdominal discomfort associated with frequent small bowel movements. Her bowel movements have been nonbloody. She denied associated nausea, vomiting, dysuria, flank pain, or chills. She denied any known sick contacts. In the ED, the patient was noted to have sigmoid diverticulitis with possible early abscess formation. IV antibiotics were administered. - Review of Systems Constitutional: No Symptoms Eyes: No Symptoms Ears, Nose, & Throat: No Symptoms Respiratory: Cough, No Orthopnea, No Short Of Breath, No Stridor, No Wheezing Cardiac: No Symptoms Abdominal/Gastrointestinal: Abdominal Pain, Diarrhea, No Nausea, No Vomiting, No Constipation, No Hematemesis, No Hematochezia, No Melena, No Dysphagia, No Appetite Changes Genitourinary Symptoms: No Symptoms Musculoskeletal: Myalgias, No Arthralgias, No Back Pain, No Neck Pain, No Deformity, No Fall, No Joint Redness, No Joint Pain, No Joint Swelling Skin: No Symptoms Neurological: No Symptoms Psychological: No Symptoms Endocrine: No Symptoms Hematologic/Lymphatic: No Symptoms Immunological/Allergic: No Symptoms All Other Systems: Reviewed and Negative Medications & Allergies Home Medications: Home Medication List Insulin Lispro [Admelog Solostar] 155 units SQ DAILY 06/18/22 [History Confirmed 03/26/25] Atorvastatin Calcium 20 mg PO DAILY 01/02/24 [History Confirmed 03/26/25] Oxycodone HCl 5 mg Ir [Oxy-IR 5 MG] 5 mg PO BID 01/02/24 [History Confirmed 03/26/25] Albuterol 8 gm Mdi Hfa [Ventolin Hfa MDI] 2 inh PO Q4H 04/29/24 [History Confirmed 03/26/25] Aspirin EC 325 mg [Ecotrin 325 MG] 81 mg PO DAILY 04/29/24 [History Confirmed 03/26/25] Docusate Sodium [Colace] 100 mg PO HS 04/29/24 [History Confirmed 03/26/25] Fluticasone/Salmeterol 115/21 [Advair Hfa 115/21 Common canister*] 2 inh PO BID 04/29/24 [History Confirmed 03/26/25] Pregabalin 50 mg [Lyrica 50MG] 150 mg PO TID 04/29/24 [History Confirmed 03/26/25] Trazodone HCl 50 mg [Desyrel 50 mg] 50 mg PO HS 04/29/24 [History Confirmed 03/26/25] Vibegron [Gemtesa] 75 mg PO DAILY 04/29/24 [History Confirmed 03/26/25] PANTOPRAZOLE 40 mg Tablet [Protonix 40MG Tablet] 40 mg PO DAILY 01/17/25 [History Confirmed 03/26/25] Brimonidine Tartrate [Alphagan P 0.15%] 1 drop OP BID 03/26/25 [History Confirmed 03/26/25] Buspirone HCl 5 mg [Buspar 5 mg] 10 mg PO TID 03/26/25 [History Confirmed 03/26/25] Cetirizine HCl [All Day Allergy Relief] 10 mg PO DAILY 03/26/25 [History Confirmed 03/26/25] Empagliflozin [Jardiance] 25 mg PO DAILY 03/26/25 [History Confirmed 03/26/25] Metoprolol Succinate 25 mg Xl* [Toprol-Xl 25MG Tablets] 25 mg PO DAILY 03/26/25 [History Confirmed 03/26/25] Semaglutide [Ozempic] 0.5 mg SQ WEEKLY 03/26/25 [History Confirmed 03/26/25] Allergies/Adverse Reactions: Allergies Allergy/AdvReac Type Severity Reaction Status Date / Time cariprazine [From [facility]] AdvReac Verified 03/25/25 23:16 metformin AdvReac Verified 03/25/25 23:16 - Past Medical History Past Medical History: Yes (See HPI) Neurological History: No Pertinent History ENT History: Glaucoma Cardiac History: High Cholesterol Respiratory History: Asthma, COPD, Sleep Apnea Endocrine Medical History: Diabetes Type II, Hypothyroidism Musculoskelatal History: Arthritis GI Medical History: Diverticulosis, Pancreatitis History: No Pertinent History Pyscho-Social History: Anxiety, Depression Reproductive Disorders: No Pertinent History Comment: LOW THYROID. FATTY LIVER DZ, ENLARGED SPLEEN. - Past Surgical History Past Surgical History: Yes Cardiac History: Cardiac Catheterization Genitourinary Surgical Hx: Other Female Surgical History: Section, Other Other Surgical History: achilles tendon, kidney stone with stent (now removed), bladder sling, bilateral shoulder surgeries Significant Family History: no pertinent family hx - Social History Smoking Status: Former smoker Exposure to second hand smoke: Yes Alcohol: None Drug Use: none - Social Determinants of Health Will the patient participate in the screening: Yes Do you worry about a steady place to live?: No Do you have any problems with any of the following?: No known problems In the past 12 months,have you had to go without utilities?: No Have you or anyone in your house had to go without enough: No Transportation Issues: No Has anyone in your support network made you feel unsafe?: No - Physical Exam Vital Signs: Vital Signs - 24 hr Temp Pulse Resp BP BP Pulse Ox 03/26/25 02:39 97.4 F 03/26/25 02:30 78 18 97/67 95 03/26/25 02:23 96 03/26/25 02:05 142/80 95 03/26/25 02:00 18 114/82 98 03/26/25 01:30 17 114/72 96 03/26/25 01:10 110/71 96 03/26/25 01:09 94 L 03/26/25 01:01 94 L 03/26/25 00:45 81 18 98 03/26/25 00:30 125/79 03/26/25 00:19 127/78 93 L 03/26/25 00:00 121/86 95 03/25/25 23:37 141/90 95 03/25/25 23:08 128/85 03/25/25 23:07 98.4 F 85 19 128/85 96 General Appearance: no apparent distress, alert Neurologic Exam: alert, oriented x 3, cooperative, maintenance of way superintendent II-XII nml as tested, normal mood/affect, nml cerebellar function, sensation nml, No motor deficits, No sensory deficit Eye Exam: PERRL/EOMI, eyes nml inspection, No scleral icterus, No pale conjunctivae, No photophobia Ears, Nose, Throat Exam: normal ENT inspection Neck Exam: normal inspection, non-tender, supple, full range of motion, No meningismus Respiratory Exam: normal breath sounds, lungs clear, airway intact, No chest tenderness, No respiratory distress Cardiovascular Exam: regular rate/rhythm, normal heart sounds, No murmur, No friction rub, No gallop Gastrointestinal/Abdomen Exam: soft, normal bowel sounds, tenderness (right sided tenderness at the time of my evaluation), No distention, No mass, No guarding, No rebound Back Exam: normal range of motion Extremity Exam: normal range of motion, No pedal edema, No swelling Skin Exam: normal color, No rash, No petechiae, No jaundice, No abrasion, No cyanosis Results - Labs Lab/Micro Results: Lab Results-Last 24 Hours 03/25/25 03/25/25 03/25/25 Range/Units 23:39 23:40 23:50 WBC 13.0 H (3.98-10.04) x10^3/uL RBC 5.75 H (3.93-5.22) x10^6/uL Hgb 15.6 (11.2-15.7) g/dL Hct 47.8 H (34.1-44.9) % MCV 83.1 (79.4-94.8) fL MCH 27.1 (25.6-32.2) pg MCHC 32.6 (32.2-35.5) g/dL RDW 13.8 (11.7-14.4) % Plt Count 172 L (182-369) x10^3/uL MPV 11.5 (9.4-12.3) fL Gran % 75.9 H (34.0-71.1) % Immature Gran % (Auto) 0.3 (0.001-0.429) % Nucleat RBC Rel Count 0.0 (0.00-0.2) % Eos # (Auto) 0.19 (0.04-0.36) x10^3/uL Immature Gran # (Auto) 0.04 H (0.001-0.031) x10^3u/L Absolute Lymphs (auto) 1.96 (1.18-3.74) x10^3/uL Absolute Monos (auto) 0.87 H (0.24-0.86) x10^3/uL Absolute Nucleated RBC 0.00 (0.00-0.012) x10^3u/L Lymphocytes % 15.1 L (19.3-51.7) % Monocytes % 6.7 (4.7-12.5) % Eosinophils % 1.5 (0.7-5.8) % Basophils % 0.5 (0.1-1.2) % Absolute Granulocytes 9.83 H (1.56-6.13) x10^3/uL Basophils # 0.07 (0.01-0.08) x10^3/uL Sodium (135-145) mmol/L Potassium (3.5-5.1) mmol/L Chloride (98-107) mmol/L Carbon Dioxide (22-30) mmol/L Anion Gap (5-15) MEQ/L BUN (7-17) mg/dL Creatinine (0.52-1.04) mg/dL Estimated GFR ML/MIN Glucose (74-106) mg/dL Calcium (8.4-10.2) mg/dL Total Bilirubin (0.2-1.3) mg/dL AST (14-36) U/L ALT (0-35) U/L Alkaline Phosphatase (38-126) U/L Serum Total Protein (6.3-8.2) g/dL Albumin (3.5-5.0) g/dL Urine Color Yellow (Yellow) Urine Appearance Clear (Clear) Urine pH 5.5 (4.6-8.0) Ur Specific [place] 1.020 (1.005-1.030) Urine Protein Negative (Negative) Urine Glucose (UA) >=1000 A (Negative) mg/dL Urine Ketones Negative (Negative) Urine Blood Negative (Negative) Urine Nitrite Negative (Negative) Urine Bilirubin Negative (Negative) Urine Urobilinogen 1.0 A (0.2) mg/dL Ur Leukocyte Esterase Negative (Negative) U Hyaline Cast (Auto) NONE SEEN (0-2) /LPF Urine Microscopic RBC 0-2 (0-5) /HPF Urine Microscopic WBC 0-2 (0-5) /HPF Ur Epithelial Cells Rare (None Seen) /HPF Urine Bacteria None Seen (None Seen) /HPF Urine Culture Reflexed NO (NO) Influenza Type A Ag NEGATIVE (NEGATIVE) Influenza Type B Ag NEGATIVE (NEGATIVE) RSV (PCR) NEGATIVE (NEGATIVE) SARS-CoV-2 (PCR) NEGATIVE (NEGATIVE) 03/25/25 Range/Units 23:50 WBC (3.98-10.04) x10^3/uL RBC (3.93-5.22) x10^6/uL Hgb (11.2-15.7) g/dL Hct (34.1-44.9) % MCV (79.4-94.8) fL MCH (25.6-32.2) pg MCHC (32.2-35.5) g/dL RDW (11.7-14.4) % Plt Count (182-369) x10^3/uL MPV (9.4-12.3) fL Gran % (34.0-71.1) % Immature Gran % (Auto) (0.001-0.429) % Nucleat RBC Rel Count (0.00-0.2) % Eos # (Auto) (0.04-0.36) x10^3/uL Immature Gran # (Auto) (0.001-0.031) x10^3u/L Absolute Lymphs (auto) (1.18-3.74) x10^3/uL Absolute Monos (auto) (0.24-0.86) x10^3/uL Absolute Nucleated RBC (0.00-0.012) x10^3u/L Lymphocytes % (19.3-51.7) % Monocytes % (4.7-12.5) % Eosinophils % (0.7-5.8) % Basophils % (0.1-1.2) % Absolute Granulocytes (1.56-6.13) x10^3/uL Basophils # (0.01-0.08) x10^3/uL Sodium 134 L (135-145) mmol/L Potassium 3.8 (3.5-5.1) mmol/L Chloride 100 (98-107) mmol/L Carbon Dioxide 19 L (22-30) mmol/L Anion Gap 17.7 H (5-15) MEQ/L BUN 11 (7-17) mg/dL Creatinine 0.88 (0.52-1.04) mg/dL Estimated GFR 75.2 ML/MIN Glucose 147 H (74-106) mg/dL Calcium 9.3 (8.4-10.2) mg/dL Total Bilirubin 0.70 (0.2-1.3) mg/dL AST 40 H (14-36) U/L ALT 45 H (0-35) U/L Alkaline Phosphatase 88 (38-126) U/L Serum Total Protein 7.6 (6.3-8.2) g/dL Albumin 4.5 (3.5-5.0) g/dL Urine Color (Yellow) Urine Appearance (Clear) Urine pH (4.6-8.0) Ur Specific Strat[place] (1.005-1.030) Urine Protein (Negative) Urine Glucose (UA) (Negative) mg/dL Urine Ketones (Negative) Urine Blood (Negative) Urine Nitrite (Negative) Urine Bilirubin (Negative) Urine Urobilinogen (0.2) mg/dL Ur Leukocyte Esterase (Negative) U Hyaline Cast (Auto) (0-2) /LPF Urine Microscopic RBC (0-5) /HPF Urine Microscopic WBC (0-5) /HPF Ur Epithelial Cells (None Seen) /HPF Urine Bacteria (None Seen) /HPF Urine Culture Reflexed (NO) Influenza Type A Ag (NEGATIVE) Influenza Type B Ag (NEGATIVE) RSV (PCR) (NEGATIVE) SARS-CoV-2 (PCR) (NEGATIVE) - Radiology Impressions Radiology Exams & Impressions: Radiology Procedures Category Date Time Status ABDOMEN AND PELVIS W CONTRAST [CT] Stat Exams 03/26/25 00:16 Completed CHEST 2 VIEWS (PA AND LAT) Stat Exams 03/26/25 00:00 Taken - Other Procedures and Tests Respiratory Therapy 03/26/25 00:44 Respiratory Therapy Assessment DAILY Assessment/Plan (1) Diverticulitis of large intestine with abscess Current Visit: Yes Status: Acute Assessment & Plan: IV antibiotics. IV fluids. Analgesia. Clear liquid diet until surgery evaluation. ED consulted Dr. Mckeon's group. Code(s): K57.20 - DVTRCLI OF LG INT W PERFORATION AND ABSCESS W/O BLEEDING (2) Abdominal pain Current Visit: Yes Status: Acute Assessment & Plan: Analgesia. Supportive care for diarrhea. Can collect stool studies if pers istent. Code(s): R10.9 - UNSPECIFIED ABDOMINAL PAIN (3) Leukocytosis Current Visit: Yes Status: Acute Assessment & Plan: Will trend WBC count. On antibiotics. Code(s): D72.829 - ELEVATED WHITE BLOOD CELL COUNT, UNSPECIFIED (4) Diabetes Current Visit: Yes Status: Acute Assessment & Plan: Patient has insulin pump. Will monitor blood sugar trend. Code(s): E11.9 - TYPE 2 DIABETES MELLITUS WITHOUT COMPLICATIONS Telemedicine Encounter - Telemedicine Encounter Telemedicine Encounter: "The entirety of this encounter was performed via Telemedicine" This visit was performed using real-time audio and video connection between my location and thepatients locationwith the assistance of a surrogateat the patients location. Written or verbal consent was obtained from the patient/guardian to perform this visit usingsynchrSellobuytelemedicine technology. Any patient questions regarding the telemedicine interaction were answered. Please note that this admission required 46 minutes to complete.
[2025-03-26] MEDS ORDERED: MEDICATION INTERVENTION MC SCH ×2 (04:15)
[2025-03-26] MEDS: MORPHINE SULFATE 2 MG INJ IV PRN (04:43)
[2025-03-26 04:59] LABS: BASOPHIL % 0.5 % (0.1-1.2); Basophil (Absolute #) 0.06 x10^3/uL (0.01-0.08); Eosinophil (Absolute #) 0.15 x10^3/uL (0.04-0.36); Hematocrit 46.3 % (34.1-44.9); Hemoglobin 14.6 g/dL (11.2-15.7); IMMATURE GRAN # 0.04 x10^3u/L (0.001-0.031); IMMATURE GRAN % 0.4 % (0.001-0.429); Lymphocyte (Absolute #) 2.24 x10^3/uL (1.18-3.74); Mean Corpuscular Hemoglobin 26.6 pg (25.6-32.2); Mean Corpuscular Hgb Concent. 31.5 g/dL (32.2-35.5); Monocyte (Absolute #) 0.93 x10^3/uL (0.24-0.86); NUCLEATED RBC # 0.00 x10^3u/L (0.00-0.012); NUCLEATED RBC % 0.0 % (0.00-0.2); Platelet Count 172 x10^3/uL (182-369); Red Blood Count 5.48 x10^6/uL (3.93-5.22); White Blood Count 11.0 x10^3/uL (3.98-10.04)
[2025-03-26 05:14] LABS: Calcium 8.8 mg/dL (8.4-10.2); Carbon Dioxide 20.0 mmol/L (22-30); Creatinine 1 0.9 mg/dL (0.52-1.04); EST GLOMERULAR FILTRATION RATE 73.2 ML/MIN; Glucose 75.0 mg/dL (74-106); Potassium 3.3 mmol/L (3.5-5.1); SGOT/AST 34.0 U/L (14-36); SGPT/ALT 38.0 U/L (0-35); Total Protein 7.0 g/dL (6.3-8.2)
[2025-03-26] MEDS: Advair Hfa 115/21 Common canister IH SCH (07:13)
--- NOTE | 2025-03-26 08:34 | XRAY ---
Indication: Productive cough. Comparison: February 01, 2025 PA/lateral chest inflated and remains clear. Heart and mediastinal structures within normal limits. Bony thorax intact again with osteopenia and minimal degenerative changes. Impression: Continued nonacute chest.
[2025-03-26] MEDS: K-LYTE PO SCH (08:44)
[2025-03-26] MEDS: TYLENOL 325 MG PO PRN (08:49)
[2025-03-26] MEDS: ECOTRIN 81 MG PO SCH (08:52)
[2025-03-26] MEDS ORDERED: NON-FORMULARY ITEM (Vibegron [Gemtesa] 75 MG Tablet) PO SCH (10:00)
[2025-03-26] MEDS ORDERED: Lyrica 50MG PO SCH (10:00)
[2025-03-26] MEDS ORDERED: NON-FORMULARY ITEM (Atorvastatin Calcium [Atorvastatin Calcium] 10 MG Tablet) PO SCH (10:00)
[2025-03-26] MEDS ORDERED: Ecotrin 325 MG PO SCH (10:00)
[2025-03-26] MEDS ORDERED: NON-FORMULARY ITEM (Cetirizine Hcl [All Day Allergy Relief] 10 MG Capsule) PO SCH (10:00)
[2025-03-26] MEDS: Acidophilus TABLET PO SCH (10:30)
[2025-03-26] MEDS: CLARITIN 10 MG PO SCH (10:30)
[2025-03-26] MEDS: LYRICA 150MG PO SCH (10:30)
[2025-03-26] MEDS: ZOCOR 20MG PO SCH (10:30)
[2025-03-26] MEDS: BUSPAR 5 MG PO SCH (10:30)
[2025-03-26] MEDS: Toprol-Xl 25MG Tablets PO SCH (10:30)
[2025-03-26] MEDS: Protonix 40MG Tablet PO SCH (10:30)
[2025-03-26] MEDS: PROVENTIL 2.5 MG/3 ML NEB IH PRN (10:37)
[2025-03-26] MEDS ORDERED: Oxy-IR 5 MG PO PRN (10:39)
[2025-03-26] MEDS: JARDIANCE PO SCH (10:53)
[2025-03-26] MEDS: Alphagan P 0.15% OP SCH (10:54)
[2025-03-26] MEDS: Oxy-IR 5 MG PO SCH (11:21)
[2025-03-26] MEDS: Zofran 4 MG/2 ML VIAL IV PRN (17:38)
[2025-03-26] MEDS: Docusate Sodium 100 MG PO SCH (20:54)
[2025-03-26] MEDS: DESYREL 50 MG PO SCH (20:55)
[2025-03-27 05:20] LABS: Hematocrit 44.3 % (34.1-44.9); Hemoglobin 13.8 g/dL (11.2-15.7); Mean Corpuscular Hemoglobin 26.6 pg (25.6-32.2); Mean Corpuscular Hgb Concent. 31.2 g/dL (32.2-35.5); Platelet Count 145 x10^3/uL (182-369); Red Blood Count 5.19 x10^6/uL (3.93-5.22); White Blood Count 4.8 x10^3/uL (3.98-10.04)
[2025-03-27 05:40] LABS: Calcium 8.6 mg/dL (8.4-10.2); Carbon Dioxide 21.0 mmol/L (22-30); Creatinine 1 0.98 mg/dL (0.52-1.04); EST GLOMERULAR FILTRATION RATE 66.1 ML/MIN; Glucose 87.0 mg/dL (74-106); Potassium 4.1 mmol/L (3.5-5.1); SGOT/AST 29.0 U/L (14-36); SGPT/ALT 34.0 U/L (0-35); Total Protein 6.9 g/dL (6.3-8.2)
[2025-03-27 07:32] VITALS: TEMP 98
--- NOTE | 2025-03-27 10:00 | PCM.DS ---
Discharge Summary Date of Admission: 03/26/25 02:50 Date of Discharge: 03/27/25 Admitting Physician: ABBY FERRARA MD Consults: Consults on Case 03/26/25 03:08 Consult Surgery ROUTINE Primary Care Provider: ARANZA GERBER DO Allergies Allergies cariprazine [From Vraylar] Adverse Reaction (Verified 03/25/25 23:16) metformin Adverse Reaction (Verified 03/25/25 23:16) Hospital Summary - Hospital Course Hospital Course: 03/26/25 is a 59 year old female with a history of DM (uses an insulin pump), HTN, bladder dysfunction, palpitations (on beta fabian), and COPD who presented to the ED with body aches and right sided abdominal discomfort. She started having body aches around 7p while laying in bed at home, and also reported generalized malaise, and increased cough/sputum production. She also complains of several days of crampy left sided abdominal discomfort associated with frequent small bowel movements. Her bowel movements have been nonbloody. She denied associated nausea, vomiting, dysuria, flank pain, or chills. She denied any known sick contacts. In the ED, the patient was noted to have sigmoid diverticulitis with possible early abscess formation. IV antibiotics were administered. 03/27/25 Patient sitting up in bed. She is feeling better today but still has some left lower and right lower quadrant abdominal pain labs are overall nonconcerning and potassium has normalized. Continue outpatient antibiotics. Patient states that she does not want pain medicine because she follows pain management outpatient. Patient denies any further concerns at this time. - Vitals & Intake/Output Vital Signs: Vital Signs Temperature 98.0 F 03/27/25 07:32 Pulse Rate 79 03/27/25 07:32 Respiratory Rate 18 03/27/25 07:32 Blood Pressure 131/72 03/27/25 07:32 O2 Sat by Pulse Oximetry 93 L 03/27/25 07:32 Intake & Output: Intake & Output 03/24/25 03/25/25 03/26/25 03/27/25 11:59 11:59 11:59 11:59 Intake Total 720 2783 Output Total 500 Balance 220 2783 Weight 97.6 kg - Lab Result Diagrams: 03/27/25 04:35 03/27/25 04:35 Lab Results-Last 24 Hrs: Lab Results-Last 24 Hours 03/27/25 03/27/25 03/27/25 Range/Units 04:35 04:35 04:35 WBC 4.8 (3.98-10.04) x10^3/uL RBC 5.19 (3.93-5.22) x10^6/uL Hgb 13.8 (11.2-15.7) g/dL Hct 44.3 (34.1-44.9) % MCV 85.4 (79.4-94.8) fL MCH 26.6 (25.6-32.2) pg MCHC 31.2 L (32.2-35.5) g/dL RDW 14.6 H (11.7-14.4) % Plt Count 145 L (182-369) x10^3/uL MPV 12.2 (9.4-12.3) fL Sodium 137 (135-145) mmol/L Potassium 4.1 D (3.5-5.1) mmol/L Chloride 105 (98-107) mmol/L Carbon Dioxide 21 L (22-30) mmol/L Anion Gap 15.2 H (5-15) MEQ/L BUN 8 (7-17) mg/dL Creatinine 0.98 (0.52-1.04) mg/dL Estimated GFR 66.1 ML/MIN Glucose 87 (74-106) mg/dL Calcium 8.6 (8.4-10.2) mg/dL Magnesium 1.8 (1.6-2.3) mg/dL Total Bilirubin 1.30 (0.2-1.3) mg/dL AST 29 (14-36) U/L ALT 34 (0-35) U/L Alkaline Phosphatase 64 (38-126) U/L Serum Total Protein 6.9 (6.3-8.2) g/dL Albumin 4.0 (3.5-5.0) g/dL Micro Results-Entire Visit: Accuchecks Date 03/27/25 Date 03/26/25 Date 03/26/25 - Radiology Exams Ordered Rad Exams-Entire Visit: Radiology Procedures Category Date Time Status ABDOMEN AND PELVIS W CONTRAST [CT] Stat Exams 03/26/25 00:16 Completed CHEST 2 VIEWS (PA AND LAT) Stat Exams 03/26/25 00:00 Completed - Procedures and Test Procedures and Tests throughout Hospitalization: Therapy Orders & Screens 03/26/25 00:44 Respiratory Therapy Assessment DAILY Comment: Discharge Exam General Appearance: no apparent distress, alert, obese Neurologic Exam: alert, oriented x 3, cooperative, normal mood/affect, nml cerebellar function, sensation nml, No motor deficits Eye Exam: PERRL, EOMI, eyes nml inspection Ears, Nose, Throat Exam: normal ENT inspection, pharynx normal, moist mucous membranes Neck Exam: normal inspection, non-tender, supple, full range of motion Respiratory Exam: normal breath sounds, lungs clear, No respiratory distress Cardiovascular Exam: regular rate/rhythm, normal heart sounds Gastrointestinal/Abdomen Exam: soft, tenderness (LLQ, RLQ with palpation), No mass Pelvic Exam: deferred Rectal Exam: deferred Back Exam: normal inspection, normal range of motion, No CVA tenderness, No vertebral tenderness Extremity Exam: normal inspection, normal range of motion Skin Exam: normal color, warm, dry Final Diagnosis/Problem List - Final Discharge Diagnosis/Problem (1) Diverticulitis of large intestine with abscess Current Visit: Yes Status: Acute Assessment & Plan: - CBC, CMP reviewed - IVF - IV antibiotics- change to PO - CT abd/pelvis: 1. Multiple small descending and sigmoid colonic diverticuli with Mild inflammatory wall thickening with adjacent fat stranding is noted involving proximal sigmoid colon. Evidence of focal (12 x 12 mm sized) peripherally enhancing hypodense collection is noted involving submucosal region of inflamed segment - possibility of focal abscess formation with acute diverticulitis-new finding. 2. Hepatic steatosis.-stable. - GS consult- no surgery needed at this time and f/u OP in 2 weeks. Code(s): K57.20 - DVTRCLI OF LG INT W PERFORATION AND ABSCESS W/O BLEEDING (2) Dehydration Current Visit: Yes Status: Acute Assessment & Plan: - Anion gap 15.2 today- Improved - IVF - Anion gap on admission 17.7 - Encouraged oral fluid intake - F/U OP with PCP for repeat labs Code(s): E86.0 - DEHYDRATION (3) Abdominal pain Current Visit: Yes Status: Acute Assessment & Plan: - 2:2 Diverticulitis- see above plan Code(s): R10.9 - UNSPECIFIED ABDOMINAL PAIN (4) Itching Current Visit: Yes Status: Acute Assessment & Plan: - of abdomen - Benadryl cream QID PRN Code(s): L29.9 - PRURITUS, UNSPECIFIED (5) Diabetes Current Visit: Yes Status: Chronic Assessment & Plan: - Type II DM - A1C 6.39 02/06/25- Controlled - Accuchecks AC/HS - Continue Jardiance - Continue insulin pump and dexcom Code(s): E11.9 - TYPE 2 DIABETES MELLITUS WITHOUT COMPLICATIONS (6) COPD (chronic obstructive pulmonary disease) Current Visit: Yes Status: Chronic Assessment & Plan: - Not in acute exacerbation - Continue home inhalers (7) Leukocytosis Current Visit: Yes Status: Resolved Assessment & Plan: - Resolved - 2:2 Diverticulitis - CXR negative for acute concern - UA reviewed - Flu/COVID/RSV negative Code(s): D72.829 - ELEVATED WHITE BLOOD CELL COUNT, UNSPECIFIED (8) Hepatic steatosis Current Visit: Yes Status: Chronic Assessment & Plan: - As seen on CT abd/pelvis - F/U OP with PCP - consider referral - Liver enzymes normalized 03/27 Code(s): K76.0 - FATTY (CHANGE OF) LIVER, NOT ELSEWHERE CLASSIFIED (9) Thrombocytopenia Current Visit: Yes Status: Acute Assessment & Plan: - PLT 145- Will need OP f/u and possible referral if does not improve. (10) Hypokalemia Current Visit: Yes Status: Resolved Assessment & Plan: - Resolved today - K+ replaced yesterday was 3.3 Code(s): E87.6 - HYPOKALEMIA (11) Obesity (BMI 30-39.9) Current Visit: Yes Status: Chronic Assessment & Plan: - Advised ADA diet and exercise control D/C plan of care time: > 36 minutes Code(s): E66.9 - OBESITY, UNSPECIFIED - Discharge Discharge Date: 03/27/25 Disposition: Home, Self-Care Condition: Stable Prescriptions: New Amox Tr/Potass Clav. 875 mg [Augmentin 875-125 Tablet] 875 mg PO BID 10 Days #20 tablet Continue Insulin Lispro [Admelog Solostar] 1 units SQ UD Atorvastatin Calcium 20 mg PO DAILY Oxycodone HCl 5 mg Ir [Oxy-IR 5 MG] 5 mg PO BID PRN PRN PRN Reason: Pain Fluticasone/Salmeterol 115/21 [Advair Hfa 115/21 Common canister*] 2 puff PO BID Albuterol 8 gm Mdi Hfa [Ventolin Hfa MDI] 2 puff PO Q4H PRN PRN PRN Reason: sob Trazodone HCl 50 mg [Desyrel 50 mg] 50 mg PO HS Docusate Sodium [Colace] 100 mg PO HS Aspirin EC 325 mg [Ecotrin 325 MG] 81 mg PO DAILY Pregabalin 50 mg [Lyrica 50MG] 150 mg PO TID Vibegron [Gemtesa] 75 mg PO DAILY PANTOPRAZOLE 40 mg Tablet [Protonix 40MG Tablet] 40 mg PO DAILY Brimonidine Tartrate [Alphagan P 0.15%] 1 drop OP BID Buspirone HCl 5 mg [Buspar 5 mg] 10 mg PO TID Cetirizine HCl [All Day Allergy Relief] 10 mg PO DAILY Semaglutide [Ozempic] 0.5 mg SQ WEEKLY Metoprolol Succinate 25 mg Xl* [Toprol-Xl 25MG Tablets] 25 mg PO DAILY Empagliflozin [Jardiance] 25 mg PO DAILY Instructions: Diverticulitis - Discharge instructions Follow up with: ARANZA GERBER DO [Primary Care Provider, FAMILY PRACTICE] - 04/03/25 3:30 pm ROXY HERNANDEZ NP [Non-Physician Practitioner, GENERAL SURGERY] - 04/25/25 9:15 am Referral Note: Song Parnell
[2025-03-27] MEDS ORDERED: Benadryl Itch Stopping Crm TP PRN (10:23)
[2025-03-27 11:28] VITALS: BP 118/60; PULSE 75; RESP 20; O2SAT 93
[2025-03-27] MEDS: Benadryl Itch Stopping Crm TP PRN (14:46)
== END 2025-03-27 15:00 | disposition home or self-care (01) | DRG 392 ==
LOC: ED 23:01 → MED SURG 03-26 02:50 → OBSVTOIN 03-26 02:50
PROVIDERS: ADMIT Internal Medicine; ATTEND Internal Medicine
DX: K57.20 Diverticulitis of large intestine with perforation and abscess without bleeding (principal); E86.0 Dehydration; R10.9 Unspecified abdominal pain; L29.9 Pruritus, unspecified; E11.9 Type 2 diabetes mellitus without complications; J44.9 Chronic obstructive pulmonary disease, unspecified; D72.829 Elevated white blood cell count, unspecified; K76.0 Fatty (change of) liver, not elsewhere classified; D69.6 Thrombocytopenia, unspecified; I10 Essential (primary) hypertension; E87.6 Hypokalemia; E66.9 Obesity, unspecified; Z79.899 Other long term (current) drug therapy